=== PATIENT | male | born 1955 | race Caucasian/White ===

== ENCOUNTER 2017-11-10 00:23 | Inpatient (IN) ==
--- NOTE | 2017-11-10 03:03 | Event Note ---
Date of Encounter: 11/10/17 Time of Encounter: 02:52 Patient was seen and examined. I agree with the H&P as written by the Resident Physician. Briefly, patient is 62 yo m with history of liver cirrhosis diagnosed 3 years ago, COPD, Afib, DVT on coumadin, hypothyroidism who is transferred from [facility] for ascites, UTI, vague/generalized abdominal pain. Pain is intermittent for last week or so. Associated nausea. He has had about 20-25 Ibs weight gain the last month or so. He has had decreased urine output despite taking extra lasix. The patient drinks alcohol 3-4 times a week but used to drink heavily in the past. The patient is hemodynamically stable with Tmax of 99.1. Work up there showed Hgb 9.2 with previous of 11.8 but no bleeding reported. Bilirubin slightly elevated. Normal rest of LFTs. K 3.4, Na 134, creatinine .56, BUN 11, Lactic acid 1.4. UA indicative of UTI. Given Rocephin, Dilaudid, Toradol prior to transfer here. CT abd/pelvis done showed moderate ascites and hepatic cirrhosis with evidence of portal venous hypertension and small paraesophageal varices. A suspected cyst on US. Never had an EGD but had a colonoscopy many years ago which he says was normal as far as he knows and was told to follow up in 10 years. Of note, the patient is on Lovenox as he is planned carpal tunnel surgery on November 12. He has been told to stop coumadin for 4 days now and go on Lovenox. A/O x3, NAD RRR. S1, S2, No m/r/g Diminshed breath sounds Abdomen distended. flank dullness. Caput medusae. +BS. NT 2+ LE edema. 2+ DP Nonfocal Admit to hospitalist for abd pain/ascite/UTI Ceftriaxone f/u on urine coutures paracentesis in IR. Send for fluid analysis c/s orthopedics since patient is scheduled for carpal tunnel surgery c/s GI for liver cirrrhosis/esophageal varices and optimizing cirrhosis meds Start IV lasix 40 mg BID May need laisx/aldactone at d/c Check TTE CXR Monitor H/H Replace K+ c/w therapeutic Lovenox Resume home meds
[2017-11-10] MEDS ORDERED: Naloxone 0.4 MG/ML INJ IVP PRN (03:51)
[2017-11-10] MEDS ORDERED: Acetaminophen 325 MG TABLET PO PRN (03:51)
[2017-11-10] MEDS ORDERED: Potassium Chloride Elixir 20 MEQ/15 ML UDC PO ONE (04:06)
--- NOTE | 2017-11-10 04:10 | Internal Med History&Physical ---
Date of Encounter: 11/10/17 Time of Encounter: 04:00 Internal Medicine - H&P: HPI Chief complaint: Abdominal pain Admitted From: Hospital to Hospital Transfer Plans for Post Hospital Care: Home History of present illness: Mr. Lomeli is a 62 year old male history of A. fib, COPD, DVT, former smoker, alcohol use, thrombocytopenia presented to [facility] with complaints of abdominal pain for 5-6 days. The patient states that the pain started as achy right upper quadrant pain that eventually radiated towards to mid epigastric and became sharp in nature. He states that movement and coughing worsens the pain. Abdominal pain ranges from 8-[address] abdomen confirmed that patient had ascites and hepatic cirrhosis, and he was send to [facility] for paracentesis and further evaluation. In addition, the patient was diagnosed with UTI and started with ceftriaxone 1000 mg IVP with cultures pending. Dilaudid, Toradol were given for pain. Patient reports that he quit smoking 11 years ago, drinks 3-4 beers/week, denies illicit drug use. He confirms that he is compliant with his lasix and all other medications. admits to nausea but denies fevers, chills, headaches, vision changes, CP, SOB, vomiting, dysuria, hematuria. Does admit to 2-3 episodes of loose stool. In addition, patient has carpal tunnel hand surgery on November 12 and has discontinued his Coumadin for 4 days, replaced with Lovenox injections BID. Abdominal CT: Hepatic cirrhosis with evidence of portal venous hypertension, including small paraesophageal varices. Moderate ascites. likely left kidney cyst. Labs: CBC red blood cells 3.23, hemoglobin 9.2, hematocrit 29.7, MCHC 31 PT 14.6 Chem-7 sodium 134, potassium 3.4, creatinine 0.56, glucose 122 Calculated osmolality 279 Total bilirubin 1.6, direct bilirubin 0.4 UA: Urine protein 30 mg/dL, urine nitrite positive, urine bilirubin small, urine bacteria moderate per hpf, many hyaline casts, moderate urine mucus. Pending urine culture Past Med Surg Social Fam HX - Past Medical History Medical history: atrial fibrillation, COPD, DVT, hypertension, other Psychiatric history: no psych history - Past Surgical History Surgical History: herniorrhaphy, orthopedic, other, other - Social History Smoking Status: Former smoker Smokeless Tobacco Status: Yes Alcohol use: occasionally Drug use: none - Family History Father Hx Family Endocrine Disorder: Yes Internal Medicine - H&P: Meds Allopurinol [Zyloprim 300 MG] 300 mg PO DAILY tablet 10/24/16 [Rx] Digoxin [Lanoxin] 0.25 mg PO DAILY tablet 10/24/16 [Rx] Levothyroxine [Synthroid] 50 mcg PO 0630 tablet 10/24/16 [Rx] Metoprolol [Lopressor] 25 mg PO BID tablet 10/24/16 [Rx] Diltiazem [Cardizem] 60 mg PO BID 11/09/17 [History] Furosemide [Lasix] 80 mg PO DAILY 11/09/17 [History] Potassium Chloride [Klor-Con 10] 20 meq PO DAILY 11/09/17 [History] Pregabalin [Lyrica] 200 mg PO TID 11/09/17 [History] Warfarin [Coumadin] 4 mg PO DAILY 11/09/17 [History] Ferric Sulfate 1 gm MC 11/10/17 [History] 3 Allergy/AdvReac Type Severity Reaction Status Date / Time tramadol AdvReac Itching Verified 10/21/16 23:53 All Systems PM: A 10-system review of systems was performed and is negative for pertinent findings except as documented above in the HPI. - Constitutional Constitutional: as per HPI, no chills, no fever(s), no night sweats - EENT Eyes: no change in vision, no discharge, no pain, no photophobia Ears: no ear discharge, no ear pain, no tinnitus Nose, mouth and throat: no dysphagia, no nasal discharge, no neck pain, no sore throat - Cardiovascular Cardiovascular ROS IM: no chest pain, no diaphoresis, no dyspnea, no lightheadedness, no palpitations, no syncope - Respiratory Respiratory: no cough, no dyspnea, no wheezing, no excessive phlegm production - Gastrointestinal Gastrointestinal: abdominal pain, no diarrhea, no hematemesis, no hematochezia, no melena, no nausea, no vomiting - Genitourinary Genitourinary ROS male: no flank pain, no urinary frequency, no urinary hesitancy - Musculoskeletal Musculoskeletal ROS IM: no numbness, no tingling - Integumentary Integumentary IM: no rash, no unusual bruising - Neurological Neurological ROS: no confusion, no convulsions, no focal weakness, no numbness, no tingling, no tremor(s) - Hematologic/Lymphatic Hematologic/Lymphatic: no easy bruising - Constitutional Vitals: Temp Pulse Resp BP Pulse Ox 97.6 F 92 15 119/72 98 11/10/17 02:00 11/10/17 02:00 11/10/17 02:00 11/10/17 02:00 11/10/17 02:00 - Head Head exam: Present: atraumatic, normocephalic - Eye Eye exam: Present: PERRL, conjuntiva pink, sclera anicteric Pupils: Present: PERRL - Neck Neck exam general surgery: Present: supple, trachea midline. Absent: lymphadenopathy - Respiratory Respiratory exam: Present: CTAB. Absent: accessory muscle use, rales, rhonchi, wheezes - Cardiovascular Cardiovascular exam: Present: RRR, +S1, +S2. Absent: diastolic murmur, gallop, rubs, systolic murmur - GI/Abdominal GI/Abdominal exam: Present: hypoactive bowel sounds, no peritoneal signs. Absent: distended, tenderness Additional comments: ascites noted. + fluid wave. - Extremities Exam Extremities exam: Present: pedal edema, warm, radial pulses palpable and symmetrical. Absent: calf tenderness, cyanotic - Neurological Exam Neurological exam: Present: CN II-XII intact, oriented X3, no focal deficits. Absent: pronater drift, facial droop, speech deficit - Skin Skin exam: Present: dry, intact Internal Med - H&P Results - Labs CBC & Chem 7: 11/10/17 04:08 11/10/17 04:05 - Assessment and plan (1) Ascites Current Visit: Yes Status: Acute Assessment and plan: Admitted patient for inpatient. Paracentesis with cell count with differential tomorrow, with peritoneal fluid analysis and cytology. Keep patient on nothing by mouth. Start Lasix 40 mg BID, consider spinorolactone. Consult GI for possible endoscopy for esophageal varices evaluation. Continue oxycodone for NPO pain management as needed. Echo pending. Qualifiers: Qualified Code(s): R18.8 - Other ascites (2) Cirrhosis of liver Current Visit: Yes Status: Acute Assessment and plan: Patient reports possible history of liver cirrhosis. GI consult for evaluation and recommendations. Treat per above. Qualifiers: Hepatic cirrhosis type: unspecified hepatic cirrhosis Ascites presence: with ascites Qualified Code(s): K74.60 - Unspecified cirrhosis of liver; R18.8 - Other ascites (3) UTI (urinary tract infection) Current Visit: No Status: Acute Assessment and plan: UA + Continue with Rocephin, UCx pending Qualifiers: Urinary tract infection type: acute cystitis Hematuria presence: without hematuria Qualified Code(s): N30.00 - Acute cystitis without hematuria (4) Wrist pain Current Visit: No Status: Chronic Assessment and plan: Patient has carpal tunnel and surgery scheduled for November 12. Consult orthopedics surgeon. Continue to hold warfarin, continue Lovenox 150 mg SQ twice a day Qualifiers: Laterality: right Qualified Code(s): M25.531 - Pain in right wrist (5) Atrial fibrillation Current Visit: No Status: Chronic Assessment and plan: Continue home medications for history of A. fib. Currently stable. Qualifiers: Atrial fibrillation type: chronic Qualified Code(s): I48.2 - Chronic atrial fibrillation (6) Hypothyroidism Current Visit: No Status: Acute Assessment and plan: Continue home medications Synthroid Qualifiers: Hypothyroidism type: unspecified Qualified Code(s): E03.9 - Hypothyroidism , unspecified (7) DM type 2 (diabetes mellitus, type 2) Current Visit: No Status: Chronic Assessment and plan: Low dose SSI Qualifiers: Diabetes mellitus intermediate designer insulin use: without half-way use Diabetes mellitus complication status: with skin complications Diabetes mellitus complication detail: with foot ulcer Qualified Code(s): E11.621 - Type 2 diabetes mellitus with foot ulcer; L97.509 - Non-pressure chronic ulcer of other part of unspecified foot with unspecified severity (8) DVT prophylaxis Current Visit: Yes Status: Acute Assessment and plan: Patient on Lovenox (9) Anemia Current Visit: Yes Status: Acute Assessment and plan: Pending iron profile Qualifiers: Qualified Code(s): D64.9 - Anemia, unspecified - Time Spent With Patient Total time spent is greater than 50% in coordination of care (as documented) at patient's floor/unit and/or counseling patient: Greater than 35 minutes
[2017-11-10 04:29] LABS: Basophils % 0.5 %; Eosinophils # 0.1 K/mcL (0.0-0.6); Eosinophils % 3.4 %; Hematocrit 28.2 % (37.5-50.1); Hemoglobin 8.8 g/dL (12.9-16.9); Immature Granulocytes % 0.3 % (0-4); Lymphocytes # 0.6 K/mcL (0.6-4.6); Lymphocytes % 14.7 %; Mean Corpuscular HGB Conc 31.2 g/dL (31.6-35.5); Mean Corpuscular Hemoglobin 29.1 pg (28.0-33.3); Mean Corpuscular Volume 93.4 fL (83.0-100.0); Monocytes # 0.7 K/mcL (0.0-1.3); Monocytes % 17.1 %; Neutrophils # 2.4 K/mcL (1.6-8.9); Platelet Count 153 K/mcL (140-400); Red Blood Count 3.02 M/mcL (4.19-5.50); Red Cell Distribution Width 17.2 % (11.5-14.5)
[2017-11-10 04:51] LABS: Alanine Aminotransferase 15 Units/L (7-52); Albumin 3.6 g/dL (3.5-5.7); Albumin/Globulin Ratio 1.2 (1.1-2.2); Alkaline Phosphatase 103 Units/L (34-104); Aspartate Amino Transferase 36 Units/L (13-39); BUN/Creatinine Ratio 22 (6-26); Bilirubin,Total 1.6 mg/dL (0.3-1.0); Blood Urea Nitrogen 12 mg/dL (8-23); Calcium 8.6 mg/dL (8.6-10.3); Carbon Dioxide 27 mEq/L (23-29); Chloride 100 mEq/L (98-107); Glucose 131 mg/dL (70-105); Lactate Dehydrogenase 146 Units/L (140-271); Osmolality,Calculated 280 (280-300); Potassium 3.3 mEq/L (3.5-5.1); Sodium 134 mEq/L (136-145); Total Protein 6.6 g/dL (6.4-8.9); eGFR For African Americans > 60 (> 60); eGFR For Non-African Americans > 60 (> 60)
[2017-11-10] MEDS ORDERED: OXYCODONE Oral CONC 10 MG/0.5 ML ORAL.SYG SL PRN (05:02)
[2017-11-10] MEDS: *HR* Enoxaparin 150 MG/ML SYRINGE SQ SCH ×2 (05:08→18:04)
[2017-11-10] MEDS ORDERED: D5% in Water 1,000 ML IVC PRN (05:23)
[2017-11-10] MEDS ORDERED: *HR* Dextrose 50 % in Water (Syg) 50 ML SYRINGE IVP PRN (05:23)
[2017-11-10] MEDS ORDERED: Dextrose Gel 15 GM/37.5 ML TUBE PO PRN ×2 (05:23)
[2017-11-10] MEDS ORDERED: *HR* Enoxaparin 40 MG/0.4 ML SYRINGE SQ SCH (06:00)
[2017-11-10 06:55] LABS: % Iron Saturation 6 % (20-55); Iron 14 mcg/dL (65-175); Transferrin 167 mg/dL (203-362)
[2017-11-10] MEDS: Insulin LISPRO 300 UNITS/3 ML VIAL SQ SCH ×4 (07:39→20:47)
[2017-11-10] MEDS: OXYCODONE Oral CONC 10 MG/0.5 ML ORAL.SYG SL PRN ×3 (08:02→22:22)
--- NOTE | 2017-11-10 08:28 | IR Procedure Note ---
Date of procedure: 11/10/17 Consent Obtained: Verbal consent, Written consent Timeout: Correct patient and procedure verified, Correct site verified, Time out performed, Skin prep completed Local anesthetic: Lidocaine 1% Indications: Ascites Procedure Performed: Paracentesis Was there an insurance administrative assistant present: No Site/Technique: Ultrasound guided paracentesis Results/Findings: Moderate ascites Estimated blood loss (cc): 2 Complications: None; Tolerated procedure well Post Procedure Treatment Plan: Continue inpatient care Specimen: Serous ascites
[2017-11-10] MEDS: Pregabalin 50 MG CAPSULE PO SCH ×3 (08:51→20:48)
[2017-11-10] MEDS: Furosemide 40 MG/4 ML VIAL IVP SCH ×3 (08:51→20:48)
[2017-11-10] MEDS: cefTRIAXone 1,000 MG in Water for inj. (sterile) 20 ML 10 ML IVP SCH (08:51)
[2017-11-10] MEDS: *HR* Digoxin 0.25 MG TABLET PO SCH (08:52)
[2017-11-10 09:03] LABS: Hepatitis B Surface Antigen Nonreactive (Nonreactive)
--- NOTE | 2017-11-10 10:59 | Gastroenterology Consult Note ---
<FontaineLorenzo kimbrough Lynne - Last Filed: 11/10/17 10:56> Date of Encounter: 11/10/17 Time of Encounter: 10:05 - Assessment and plan (1) Anemia Current Visit: No Status: Acute Assessment and plan: Hgb 8.8 with iron 14. Continue to monitor CBC and transfuse PRBC as needed. Plan for EGD today to r/o esophagitis, gastritis, duodenitis, PUD, MW tear, or AVM. Qualifiers: Anemia type: unspecified type Qualified Code(s): D64.9 - Anemia, unspecified (2) Cirrhosis of liver Current Visit: Yes Status: Acute Assessment and plan: MELD-Na 15, Child-Dunn class B, DF 20.5. CT A/P shows hepatic cirrhosis with evidence of portal venous hypertension, including small paraesophageal varices, and moderate ascites. Plan for EGD today to r/o esophagitis, gastritis, duodenitis, PUD, MW tear, or AVM. Continue Lasix and Aldactone. Check AFP. 1. Total abstinence from alcohol including social drinking. 2. No smoking 3. Gradual loss of weight 4. Drink at least 3 cups of coffee due to its antioxidant effects in the liver, it reduces risk of HCC and advance fibrosis 5. If needed, use less than 2 g/day of Tylenol (in divided doses). 6. Vaccination for Hep A, B, Pneumococcus if not already received and yearly influenza vaccination by PCP 7. Avoid NSAIDS as can cause kidney damage 8. Avoid benzodiazepines and other sedatives such as anti-histamines, narcotics etc. as can cause encephalopathy or confusion 9. Take a late carbohydrate meal supplement as it reduces glucose production from protein breakdown and thus improves nutrition. 10. In cirrhosis, statins are safe to use and also improve portal hypertension and decrease risk of HCC. Qualifiers: Hepatic cirrhosis type: unspecified hepatic cirrhosis Ascites presence: with ascites Qualified Code(s): K74.60 - Unspecified cirrhosis of liver (3) Ascites Current Visit: Yes Status: Acute Assessment and plan: Paracentesis completed today. Continue Lasix and aldactone. Qualifiers: Ascites type: other type Qualified Code(s): R18.8 - Other ascites - Time Spent With Patient Total time spent is greater than 50% in coordination of care (as documented) at patient's floor/unit and/or counseling patient: GI History of Present Illness - Data of Consult Patient: new to practice Consult date: 11/10/17 Requesting Physician: Hitesh Araiza MD - Consult Narrative Reason for consult: Cirrhosis History of present illness: Mr. Lomeli is a 62 year old male with PMHx of A fib, COPD, DVT, HTN, alcohol use, who presented to [facility] with c/o abdominal pain for 5-6 days. Pt reports history of cirrhosis diagnosed 3 years ago. He has never had EGD. The patient states that the pain started as achy right upper quadrant pain that eventually radiated towards to mid epigastric and became sharp in nature. He states that movement and coughing worsens the pain. Abdominal pain ranges from 8-[address] abdomen confirmed that patient had ascites and hepatic cirrhosis, and he was send to [facility] for paracentesis and further evaluation. Pt admits to drinking 3-4 beers per week and denies any illicit drug use. Paracentesis is planned for today. Procedures: None NSAIDs: None Anticoagulation: Coumadin Past Med Surg Social Fam HX - Past Medical History Medical history: atrial fibrillation, COPD, DVT, hypertension, other Psychiatric history: no psych history - Past Surgical History Surgical History: herniorrhaphy, orthopedic, other, other - Social History Smoking Status: Former smoker Smokeless Tobacco Status: Yes Alcohol use: occasionally Drug use: none - Family History Father Hx Family Endocrine Disorder: Yes - Gastrointestinal Gastrointestinal: Present: as per HPI - Constitutional Constitutional: as per HPI - EENT Eyes: as per HPI Ears: Present: as per HPI Nose, mouth and throat: Present: as per HPI - Cardiovascular Cardiovascular ROS: Present: as per HPI - Respiratory Respiratory IM: Present: as per HPI - Genitourinary Genitourinary: Absent: change in color, Urinary frequency - Neurological ROS Neurological GI: Present: as per HPI - Hematologic/Lymphatic Hematologic/Lymphatic pediatric: Present: as per HPI - Musculoskeletal Musculoskeletal ROS GI: Present: as per HPI - Integumentary Integumentary GI: Present: as per HPI - Psychiatric ROS Psychiatric GI: Present: as per HPI - Endocrine Endocrine IM: Present: as per HPI - Constitutional Vitals: Temp Pulse Resp BP Pulse Ox 98.7 F 93 16 113/67 95 11/10/17 07:20 11/10/17 07:20 11/10/17 07:20 11/10/17 07:20 11/10/17 08:09 General appearance: Present: cooperative, A&O X 3, no acute distress, answers questions appropriately - Head Head exam: Present: atraumatic, normocephalic - Eye Eye exam: Present: normal appearance, sclera anicteric - ENT ENT exam: Present: mucous membranes dry - Neck Neck exam general surgery: Present: normal inspection, trachea midline - Respiratory Respiratory exam: Present: CTAB. Absent: rales, rhonchi - Cardiovascular Cardiovascular exam: Present: RRR, +S1, +S2 - GI/Abdominal GI/Abdominal exam: Present: soft, no peritoneal signs. Absent: distended, firm , guarding, tenderness - Expanded GI/Abdominal Exam GI/Abdominal exam expanded: Present: ascites - Rectal Rectal exam: Present: deferred - Extremities Exam Extremities exam: Present: warm - Neurological Exam Neurological exam: Present: no focal deficits - Psychiatric Psychiatric exam: Present: normal affect, normal mood - Skin Skin exam: Present: dry, intact, normal color, warm Results - Labs CBC & Chem 7: 11/10/17 04:08 11/10/17 04:05 Labs: Last Result Calcium 8.6 mg/dL (8.6-10.3) 11/10/17 04:05 Iron 14 mcg/dL (65-175) L 11/10/17 06:16 % Saturation 6 % (20-55) L 11/10/17 06:16 Transferrin 167 mg/dL (203-362) L 11/10/17 06:16 Entire Visit Hgb 8.8 g/dL (12.9-16.9) L 11/10/17 04:08 Hct 28.2 % (37.5-50.1) L 11/10/17 04:08 Total Bilirubin 1.6 mg/dL (0.3-1.0) H 11/10/17 04:05 AST 36 Units/L (13-39) 11/10/17 04:05 ALT 15 Units/L (7-52) 11/10/17 04:05 - Impressions Impressions Paracentesis Ultrasound 11/10/17 03:07 IMPRESSION: Successful ultrasound guided paracentesis. D/ / Adolph Meraz MD / Adolph Meraz MD Interpreting Provider: Adolph Meraz MD Chest X-Ray 11/10/17 03:26 IMPRESSION: No acute cardiopulmonary abnormality. D/ / Lorenzo Wise MD / Lorenzo Wise MD Interpreting Provider: Lorenzo Wise MD Consult Discharge Plan - Plan Referrals: NONE,PCP [Primary Care Provider] - (please call residency Clinic upon discharge...) <Tay Landa - Last Filed: 11/13/17 03:52> Date of Encounter: 11/10/17 - Time Spent With Patient Total time spent is greater than 50% in coordination of care (as documented) at patient's floor/unit and/or counseling patient: GI History of Present Illness - Data of Consult Requesting Physician: Hitesh Araiza MD - Consult Narrative History of present illness: Mr. Lomeli is a 62 year old male - Constitutional Vitals: Temp Pulse Resp BP Pulse Ox 97.6 F 80 19 98/62 94 11/13/17 00:33 11/13/17 00:33 11/13/17 00:33 11/13/17 00:33 11/13/17 00:33 Results - Labs CBC & Chem 7: 11/12/17 04:05 11/12/17 04:05 Labs: Last Result Calcium 8.3 mg/dL (8.6-10.3) L 11/12/17 04:05 Iron 14 mcg/dL (65-175) L 11/10/17 06:16 % Saturation 6 % (20-55) L 11/10/17 06:16 Transferrin 167 mg/dL (203-362) L 11/10/17 06:16 Troponin I 0.04 ng/mL (< 0.04) H* 11/11/17 20:04 Peritoneal Appearance CLEAR (Clear) 11/10/17 08:15 Peritoneal Volume 50.0 mL 11/10/17 08:15 Peritoneal RBC < 0.002 M/mcL (0.000-0.002) 11/10/17 08:15 Periton Tot Nuc Cells 96 TNC/mcL (0-300) 11/10/17 08:15 Periton Band Neuts Test Not Performed 11/10/17 08:15 Periton Lymphocytes % 52.0 % 11/10/17 08:15 Periton Monocytes % 6.0 % 11/10/17 08:15 Periton Other Cells % 14.0 % 11/10/17 08:15 Peritoneal Tot Protein < 3.0 g/dL (No Ref Range) 11/10/17 08:15 Peritoneal Albumin < 1.5 g/dL (No Ref Range) 11/10/17 08:15 Peritoneal LDH 42 Units/L (No Ref Range) 11/10/17 08:15 Entire Visit Hgb 8.5 g/dL (12.9-16.9) L 11/12/17 04:05 Hct 27.6 % (37.5-50.1) L 11/12/17 04:05 Total Bilirubin 1.6 mg/dL (0.3-1.0) H 11/10/17 04:05 AST 36 Units/L (13-39) 11/10/17 04:05 ALT 15 Units/L (7-52) 11/10/17 04:05 - Impressions Impressions Echocardiogram 11/11/17 04:25 Impressions: LVEF 60-65%. Mild concentric left ventricular hypertrophy. Indeterminate diastolic function. Definity echo contrast was used. Normal right ventricular structure and function. Mild mitral regurgitation. Mild tricuspid regurgitation. Moderate-severe aortic stenosis. Mild pulmonary hypertension. Left Ventricular Wall Motion: Rest Echo Findings All wall segments showed normal motion. Findings: Study Quality * Technically adequate exam. ECG Findings * Normal sinus rhythm. Left Ventricle * LVEF 60-65%. * Mild concentric left ventricular hypertrophy. * Indeterminate diastolic function. * Definity echo contrast was used. Right Ventricle * Normal right ventricular structure and function. Left Atrium * Severely dilated left atrium. Right Atrium * Moderately dilated right atrium. Mitral Valve * Normal mitral valve structure. * No mitral stenosis. * Mild mitral annular calcification * Mild mitral regurgitation. Tricuspid Valve * Tricuspid valve not well visualized. * Mild tricuspid regurgitation. * Estimated RA pressure is 8 mmHg. * Estimated RVSP is 44 mmHg. * Mild pulmonary hypertension. Aortic Valve * Aortic valve not well visualized. * Moderate-severe aortic stenosis. PV 3.2m/s, MG 23 mmHg, DI 0.3, GISSELL 0.9cm2 * No aortic regurgitation. Pulmonic Valve * Pulmonic valve is not well visualized. * No pulmonic stenosis. * No pulmonic regurgitation. Pulmonary Artery * Pulmonary artery not well visualized. Aorta * Normally sized aortic root. Pericardium * There is no pericardial effusion present. Interatrial Septum * No evidence of PFO by color Doppler. IVC * The IVC is not dilated. * < 50% respiratory change. - Attending Attestation shows cirrhosis with ascites and portal hypertension with severe anemia with hemoglobin 8.8 g percent would plan EGD today and a colonoscopy the following day and to make further recommendations history: He needs a workup for his cirrhosis procedure agree with checking an alpha-fetoprotein level and we will make further recommendations as as appropriate I have personally performed a face to face evaluation on this patient. I have reviewed and agree with the care plan. History and Exam by me shows:
--- NOTE | 2017-11-10 12:10 | Internal Med Progress Note ---
Date of Encounter: 11/10/17 Time of Encounter: 09:40 - Assessment and plan (1) Wrist pain Current Visit: Yes Status: Chronic Assessment and plan: Patient has carpal tunnel and surgery scheduled for November 12. Orthopedics has been consulted non-emergently ,will follow recommendations Continue to hold warfarin, continue Lovenox 150 mg SQ twice a day Qualifiers: Laterality: right Qualified Code(s): M25.531 - Pain in right wrist (2) UTI (urinary tract infection) Current Visit: Yes Status: Suspected Assessment and plan: Suspected, UA + Continue with Rocephin, UCx pending, will follow Qualifiers: Urinary tract infection type: acute cystitis Hematuria presence: without hematuria Qualified Code(s): N30.00 - Acute cystitis without hematuria (3) Atrial fibrillation Current Visit: Yes Status: Chronic Assessment and plan: Continue home medications for history of A. fib. Currently stable. Qualifiers: Atrial fibrillation type: chronic Qualified Code(s): I48.2 - Chronic atrial fibrillation (4) Hypothyroidism Current Visit: Yes Status: Chronic Assessment and plan: Continue home medications Synthroid Qualifiers: Hypothyroidism type: unspecified Qualified Code(s): E03.9 - Hypothyroidism , unspecified (5) DM type 2 (diabetes mellitus, type 2) Current Visit: Yes Status: Chronic Assessment and plan: Low dose SSI Qualifiers: Diabetes mellitus fci insulin use: without fci use Diabetes mellitus complication status: with skin complications Diabetes mellitus complication detail: with foot ulcer Qualified Code(s): E11.621 - Type 2 diabetes mellitus with foot ulcer; L97.509 - Non-pressure chronic ulcer of other part of unspecified foot with unspecified severity (6) Cirrhosis of liver Current Visit: Yes Status: Acute Assessment and plan: Alcoholic decompensated liver cirrhosis GI eval pending at time of review s/p 3L ascitic fluid drainage,work up ordered, pending Continue lasix and spironolactone GI fo possible EGD Keep NPO till GI eval Qualifiers: Hepatic cirrhosis type: alcoholic cirrhosis Ascites presence: with ascites Qualified Code(s): K70.31 - Alcoholic cirrhosis of liver with ascites (7) DVT prophylaxis Current Visit: Yes Status: Acute Assessment and plan: Patient on Lovenox (8) Anemia Current Visit: Yes Status: Chronic Assessment and plan: Chronic,stable,follow anemia workup Qualifiers: Anemia type: unspecified type Qualified Code(s): D64.9 - Anemia, unspecified (9) Ascites Current Visit: Yes Status: Acute Assessment and plan: s/p paracentesis. Follow fluid workup. Continue Rocephin Lasix and spironolactone. Qualifiers: Ascites type: due to alcoholic cirrhosis Qualified Code(s): K70.31 - Alcoholic cirrhosis of liver with ascites - Time Spent With Patient Total time spent is greater than 50% in coordination of care (as documented) at patient's floor/unit and/or counseling patient: - Subjective Interval history: Seen and examined at the bedside. 62-year-old male with alcohol abuse, admitted for decompensated liver cirrhosis with ascites, suspect paralysis. He reports his last drink in episode was 10 days ago. He denies new complaints. He is status post paracentesis, workup is pending. - Constitutional Vitals: Temp Pulse Resp BP Pulse Ox 98.2 F 69 15 108/68 96 11/10/17 11:15 11/10/17 11:15 11/10/17 11:15 11/10/17 11:15 11/10/17 11:15 General appearance: Present: A&O X 3, morbidly obese, pleasant, no acute distress - Head Head exam: Present: atraumatic, normocephalic - Eye Eye exam: Present: PERRL, conjuntiva pink, sclera anicteric Pupils: Present: PERRL - Neck Neck exam general surgery: Present: supple, trachea midline. Absent: lymphadenopathy - Respiratory Respiratory exam: Present: CTAB. Absent: accessory muscle use, rales, rhonchi, wheezes - GI/Abdominal GI/Abdominal exam: Present: distended, normal bowel sounds, soft, no peritoneal signs. Absent: splenomegaly, tenderness - Extremities Exam Extremities exam: Present: pedal edema (2+pedal edema with chronic venous stasis changes), warm, radial pulses palpable and symmetrical. Absent: calf tenderness, cyanotic - Neurological Exam Neurological exam: Present: alert, CN II-XII intact, oriented X3, no focal deficits. Absent: pronater drift, facial droop, speech deficit - Skin Skin exam: Present: dry, intact Internal Medicine: Result - Labs CBC & Chem 7: 11/10/17 04:08 05/29/18 04:05 Labs: Short CBC 11/10/17 Range/Units 04:08 WBC 3.8 L (4.3-11.1) K/mcL Hgb 8.8 L (12.9-16.9) g/dL Hct 28.2 L (37.5-50.1) % Plt Count 153 (140-400) K/mcL Neutrophils # 2.4 (1.6-8.9) K/mcL BMP 11/10/17 04:05 Sodium 134 L Potassium 3.3 L Chloride 100 Carbon Dioxide 27 BUN 12 Creatinine 0.54 L Glucose 131 H Calcium 8.6 Liver Function 11/10/17 Range/Units 04:05 Total Bilirubin 1.6 H (0.3-1.0) mg/dL AST 36 (13-39) Units/L ALT 15 (7-52) Units/L Alkaline Phosphatase 103 (34-104) Units/L Albumin 3.6 (3.5-5.7) g/dL - Impressions Impressions Paracentesis Ultrasound 11/10/17 03:07 IMPRESSION: Successful ultrasound guided paracentesis. D/ / Adolph Meraz MD / Adolph Meraz MD Interpreting Provider: Adolph Meraz MD Chest X-Ray 11/10/17 03:26 IMPRESSION: No acute cardiopulmonary abnormality. D/ / Lorenzo Wise MD / Lorenzo Wise MD Interpreting Provider: Lorenzo Wise MD Consult Discharge Plan - Plan Referrals: NONE,PCP [Primary Care Provider] -
[2017-11-10] MEDS ORDERED: *HR* Propofol 200 MG/20 ML VIAL IVP ONE (12:57)
[2017-11-10] MEDS ORDERED: Lidocaine -MPF 2% 2 ML VIAL ONE (12:57)
--- NOTE | 2017-11-10 13:45 | Anesthesia Evaluation PreOp ---
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 Any Significant HX Other Medical History: Hepatic (alcoholic cirrhosis with ascites and portal hypertension), Other (hx DVT) Anesthesia History: No Prior Anesthetic Complications, Past Anesthesia (hernia, ortho) Alcohol Use: occasionally Drug use: none Medications and Allergies Allopurinol [Zyloprim 300 MG] 300 mg PO DAILY tablet 10/24/16 [Rx] Digoxin [Lanoxin] 0.25 mg PO DAILY tablet 10/24/16 [Rx] Levothyroxine [Synthroid] 50 mcg PO 0630 tablet 10/24/16 [Rx] Metoprolol [Lopressor] 25 mg PO BID tablet 10/24/16 [Rx] Diltiazem [Cardizem] 30 mg PO BID 11/09/17 [History] Furosemide [Lasix] 80 mg PO DAILY 11/09/17 [History] Potassium Chloride [Klor-Con 10] 20 meq PO DAILY 11/09/17 [History] Pregabalin [Lyrica] 200 mg PO TID 11/09/17 [History] Warfarin [Coumadin] 4 mg PO DAILY 11/09/17 [History] Enoxaparin [Lovenox] 150 mg SQ Q12HR 11/10/17 [History] Ferrous Sulfate [Iron] 325 mg PO DAILY 11/10/17 [History] Naproxen [Naprosyn] 500 mg PO BID PRN 11/10/17 [History] 3 Allergy/AdvReac Type Severity Reaction Status Date / Time tramadol AdvReac Itching Verified 10/21/16 23:53 - Meds/Allergy Pre-op Review Medications Reviewed: Yes Allergies Reviewed: Yes Beta Blockers on Current Med List: Yes If Beta Blockers taken, Date/Time (Last Dose taken): today@ 7248 Anesthesia Results - Labs 11/10/17 04:08 11/10/17 04:05 Anesthesia Exam Selected Entries 11/10/17 11:15 Temperature 98.2 F Pulse Rate 69 Respiratory Rate 15 Blood Pressure 108/68 O2 Sat by Pulse Oximetry 96 Oxygen Delivery Method Room Air Weight: 155kg BMI 41 - HEENT Pupil (Motor): EOMI Mallampati: III Teeth: Edentulous Oral Opening: Greater than 3 - IN STORE BANKER LOC: Oriented IN STORE BANKER Motor: Normal RUE, Normal LUE, Normal RLE, Normal LLE, Normal Face IN STORE B[employer]ER Sensory: Normal: RUE, LUE, RLE, LLE, Face - Cardiac Rhythm: Irregular Murmur: None - Pulmonary Breath Sounds: bilateral Clear Respiratory Effort: Symmetrical Anesthesia Assess/Plan ASA Score: 3 Modified [place] Scale for Level of Consciousness: Cooperative, oriented, and tranquil Anesthetic Plan: MAC Monitoring Plan: Standard Monitors Recovery Plan: Other (agrees to MAC)
[2017-11-10 16:05] LABS: LDH,Peritoneal Fluid 42 Units/L (No Ref Range); Total Protein,Peritoneal Fluid < 3.0 g/dL (No Ref Range)
[2017-11-10 16:23] LABS: RBC,Peritoneal Fluid < 0.002 M/mcL
[2017-11-10 16:24] LABS: Appearance of Peritoneal Fl CLEAR (Clear)
[2017-11-10] MEDS ORDERED: SODIUM CHLORIDE/NAHCO3/KCL/PEG 4,000 ML SOLN.RECON PO ONE (17:00)
--- NOTE | 2017-11-10 17:02 | Orthopedic Consult Note ---
Date of Encounter: 11/10/17 Time of Encounter: 13:00 Assessment and Plan (1) Carpal tunnel syndrome on both sides Current Visit: Yes Status: Acute Patient scheduled for left revision open carpal tunnel release, left elbow ulnar nerve decompression, right carpal tunnel steroid injection on 11/12/17. This is not a medically urgent procedure however patient wishes to proceed with the surgery while he is admitted. Discussed with Dr. Araiza who expressed this should not be an issue and would be ok to proceed as scheduled pending echo results. He will need to be NPO after midnight tomorrow. Coumadin has been held and he is currently on lovenox bridge. (2) Cubital tunnel syndrome on left Current Visit: Yes Status: Acute Scheduled for surgery as above History of Present Illness Chief complaint: bilateral carpal tunnel HPI: Mr. Lomeli is a 62 year old male who was admitted for decompensated liver cirrhosis with ascites. He is scheduled for LUE surgery on 11/12/[address] Ceballos. He states that he continues to have the numbness and pain to bilateral upper extremities, symptoms have persisted for > 1 year with no change since last visit in office. Continues to have numbness and tingling to fingers. Patient wants to proceed with surgery while he is here. He is right hand dominant. Past Med Surg Social Fam HX - Past Medical History Medical history: atrial fibrillation, COPD, DVT, hypertension, other Psychiatric history: no psych history - Past Surgical History Surgical History: herniorrhaphy, orthopedic, other, other - Social History Smoking Status: Former smoker Smokeless Tobacco Status: Yes Alcohol use: occasionally Drug use: none - Family History Father Hx Family Endocrine Disorder: Yes Medications and Allergies Allopurinol [Zyloprim 300 MG] 300 mg PO DAILY tablet 10/24/16 [Rx] Digoxin [Lanoxin] 0.25 mg PO DAILY tablet 10/24/16 [Rx] Levothyroxine [Synthroid] 50 mcg PO 0630 tablet 10/24/16 [Rx] Metoprolol [Lopressor] 25 mg PO BID tablet 10/24/16 [Rx] Diltiazem [Cardizem] 30 mg PO BID 11/09/17 [History] Furosemide [Lasix] 80 mg PO DAILY 11/09/17 [History] Potassium Chloride [Klor-Con 10] 20 meq PO DAILY 11/09/17 [History] Pregabalin [Lyrica] 200 mg PO TID 11/09/17 [History] Warfarin [Coumadin] 4 mg PO DAILY 11/09/17 [History] Enoxaparin [Lovenox] 150 mg SQ Q12HR 11/10/17 [History] Ferrous Sulfate [Iron] 325 mg PO DAILY 11/10/17 [History] Naproxen [Naprosyn] 500 mg PO BID PRN 11/10/17 [History] 3 Allergy/AdvReac Type Severity Reaction Status Date / Time tramadol AdvReac Itching Verified 10/21/16 23:53 All Systems Reviewed: The remainder of the systems were reviewed and are negative - Constitutional Constitutional: as per HPI - Musculoskeletal Musculoskeletal: as per HPI Physical Exam - Constitutional Vitals: Temp Pulse Resp BP Pulse Ox 98.0 F 81 16 140/78 97 11/10/17 15:23 11/10/17 15:23 11/10/17 15:23 11/10/17 15:23 11/10/17 15:23 General appearance IM: cooperative, A&O X 3, no acute distress, answers questions appropriately - Wrist & Hand bilateral Wrist pain modifiers: with activity Tenderness with palpation: carpal tunnel Results - Labs Result Diagrams: 11/10/17 04:08 11/10/17 04:05 Labs: Abnormal lab results WBC 3.8 K/mcL (4.3-11.1) L 11/10/17 04:08 RBC 3.02 M/mcL (4.19-5.50) L 11/10/17 04:08 Hgb 8.8 g/dL (12.9-16.9) L 11/10/17 04:08 Hct 28.2 % (37.5-50.1) L 11/10/17 04:08 MCHC 31.2 g/dL (31.6-35.5) L 11/10/17 04:08 RDW 17.2 % (11.5-14.5) H 11/10/17 04:08 Sodium 134 mEq/L (136-145) L 11/10/17 04:05 Potassium 3.3 mEq/L (3.5-5.1) L 11/10/17 04:05 Creatinine 0.54 mg/dL (0.70-1.30) L 11/10/17 04:05 Glucose 131 mg/dL (70-105) H 11/10/17 04:05 POC Glucose 117 mg/dL (70-99) H 11/10/17 07:25 Iron 14 mcg/dL (65-175) L 11/10/17 06:16 % Saturation 6 % (20-55) L 11/10/17 06:16 Transferrin 167 mg/dL (203-362) L 11/10/17 06:16 Total Bilirubin 1.6 mg/dL (0.3-1.0) H 11/10/17 04:05 H & H 11/10/17 Range/Units 04:08 Hgb 8.8 L (12.9-16.9) g/dL Hct 28.2 L (37.5-50.1) % All other labs normal. Consult Discharge Plan - Plan Referrals: NONE,PCP [Primary Care Provider] - - Attending Attestation Case and plan of care discussed with supervising physician who was available for all aspects of care.
[2017-11-10] MEDS ORDERED: *HR* Warfarin 4 MG TABLET PO SCH (18:00)
[2017-11-10] MEDS: Diltiazem CD (24hr) 120 MG CAPSULE PO SCH (18:04)
[2017-11-11 01:25] LABS: Hepatitis A Antibody IgM Nonreactive (Nonreactive); Hepatitis B Core IgM Nonreactive (Nonreactive); Hepatitis C Virus Antibody Nonreactive (Nonreactive)
[2017-11-11] MEDS: OXYCODONE Oral CONC 10 MG/0.5 ML ORAL.SYG SL PRN ×5 (04:18→21:53)
[2017-11-11] MEDS: *HR* Enoxaparin 150 MG/ML SYRINGE SQ SCH ×2 (04:33→18:11)
[2017-11-11 07:19] LABS: Basophils % 0.5 %; Eosinophils # 0.1 K/mcL (0.0-0.6); Eosinophils % 1.4 %; Hematocrit 27.1 % (37.5-50.1); Hemoglobin 8.4 g/dL (12.9-16.9); Immature Granulocytes % 0.4 % (0-4); Lymphocytes # 0.8 K/mcL (0.6-4.6); Lymphocytes % 13.4 %; Mean Corpuscular Hemoglobin 29.1 pg (28.0-33.3); Mean Corpuscular Volume 93.8 fL (83.0-100.0); Mean Platelet Volume 11.3 fL (9.4-12.4); Monocytes % 18.1 %; Neutrophils # 3.7 K/mcL (1.6-8.9); Nucleated Red Blood Cells 0.4 /100 WBC (0); Platelet Count 149 K/mcL (140-400); Red Blood Count 2.89 M/mcL (4.19-5.50); Red Cell Distribution Width 17.6 % (11.5-14.5); Segmented Neutrophils % 66.2 %
[2017-11-11] MEDS: Insulin LISPRO 300 UNITS/3 ML VIAL SQ SCH ×4 (07:29→21:51)
[2017-11-11 07:43] LABS: BUN/Creatinine Ratio 20 (6-26); Blood Urea Nitrogen 14 mg/dL (8-23); Calcium 8.2 mg/dL (8.6-10.3); Carbon Dioxide 23 mEq/L (23-29); Chloride 101 mEq/L (98-107); Glucose 121 mg/dL (70-105); Osmolality,Calculated 276 (280-300); Potassium 3.9 mEq/L (3.5-5.1); Sodium 132 mEq/L (136-145); eGFR For African Americans > 60 (> 60); eGFR For Non-African Americans > 60 (> 60)
[2017-11-11 08:08] LABS: Anisocytosis 1+ (Not Present); Macrocytosis Present (Not Present); Platelet Estimate Normal (Normal); Polychromasia 1+ (Not Present)
[2017-11-11] MEDS ORDERED: Perflutren Lipid Microsphere 1.3 ML in 0.9 % Sodium Chloride 8.7 ML IVP ONE ×2 (08:32→19:33)
[2017-11-11] MEDS: cefTRIAXone 1,000 MG in Water for inj. (sterile) 20 ML 10 ML IVP SCH (09:20)
[2017-11-11] MEDS: Pregabalin 50 MG CAPSULE PO SCH ×3 (12:00→21:52)
[2017-11-11] MEDS: Furosemide 40 MG/4 ML VIAL IVP SCH ×2 (12:00→18:12)
[2017-11-11] MEDS: *HR* Digoxin 0.25 MG TABLET PO SCH (12:01)
[2017-11-11] MEDS ORDERED: Lidocaine -MPF 2% 2 ML VIAL ONE (12:06)
[2017-11-11] MEDS ORDERED: Propofol 500 MG/50 ML INFUS..BTL ONE (12:17)
--- NOTE | 2017-11-11 13:49 | Internal Med Progress Note ---
Date of Encounter: 11/11/17 Time of Encounter: 13:49 - Assessment and plan (1) Wrist pain Current Visit: Yes Status: Chronic Assessment and plan: Patient has carpal tunnel and surgery scheduled for November 12. Orthopedics has been consulted non-emergently ,will follow recommendations Continue to hold warfarin, continue Lovenox 150 mg SQ twice a day For procedure as out-patient Qualifiers: Laterality: right Qualified Code(s): M25.531 - Pain in right wrist (2) UTI (urinary tract infection) Current Visit: Yes Status: Suspected Assessment and plan: Suspected, UA + Continue with Rocephin, UCx pending, will follow Qualifiers: Urinary tract infection type: acute cystitis Hematuria presence: without hematuria Qualified Code(s): N30.00 - Acute cystitis without hematuria (3) Atrial fibrillation Current Visit: Yes Status: Chronic Assessment and plan: Continue home medications for history of A. fib. Currently stable. Qualifiers: Atrial fibrillation type: chronic Qualified Code(s): I48.2 - Chronic atrial fibrillation (4) Hypothyroidism Current Visit: Yes Status: Chronic Assessment and plan: Continue home medications Synthroid Qualifiers: Hypothyroidism type: unspecified Qualified Code(s): E03.9 - Hypothyroidism , unspecified (5) DM type 2 (diabetes mellitus, type 2) Current Visit: Yes Status: Chronic Assessment and plan: Low dose SSI Qualifiers: Diabetes mellitus superintendent terminal insulin use: without residential use Diabetes mellitus complication status: with skin complications Diabetes mellitus complication detail: with foot ulcer Qualified Code(s): E11.621 - Type 2 diabetes mellitus with foot ulcer; L97.509 - Non-pressure chronic ulcer of other part of unspecified foot with unspecified severity (6) Cirrhosis of liver Current Visit: Yes Status: Chronic Assessment and plan: Alcoholic decompensated liver cirrhosis GI eval pending at time of review s/p 3L ascitic fluid drainage,work up ordered, pending Continue lasix and spironolactone EGD shoed portal gastropathy and Grade I non-bleeding varices Discontinue metoprolol and start on propanolol Renal function stable on current dose of diuretics Qualifiers: Hepatic cirrhosis type: alcoholic cirrhosis Ascites presence: with ascites Qualified Code(s): K70.31 - Alcoholic cirrhosis of liver with ascites (7) DVT prophylaxis Current Visit: Yes Status: Acute Assessment and plan: Patient on Lovenox (8) Anemia Current Visit: Yes Status: Chronic Assessment and plan: Chronic,stable,follow anemia workup Qualifiers: Anemia type: unspecified type Qualified Code(s): D64.9 - Anemia, unspecified (9) Ascites Current Visit: Yes Status: Acute Assessment and plan: s/p paracentesis. SBP ruled out Cyotology pending Culture no growth for now Continue Rocephin Lasix and spironolactone Qualifiers: Ascites type: due to alcoholic cirrhosis Qualified Code(s): K70.31 - Alcoholic cirrhosis of liver with ascites - Time Spent With Patient Total time spent is greater than 50% in coordination of care (as documented) at patient's floor/unit and/or counseling patient: - Subjective Interval history: Seen and examined at the bedside. 62-year-old male with alcohol abuse, admitted for decompensated liver cirrhosis with ascites, suspected UTI, Esophageal varices, Suspect CHF, Carpal tunnel No new complains - Constitutional Vitals: Temp Pulse Resp BP Pulse Ox 98.8 F 97 15 116/77 96 11/11/17 11:22 11/11/17 11:22 11/11/17 11:22 11/11/17 11:22 11/11/17 11:22 General appearance: Present: A&O X 3, morbidly obese, pleasant, no acute distress - Head Head exam: Present: atraumatic, normocephalic - Eye Eye exam: Present: PERRL, conjuntiva pink, sclera anicteric Pupils: Present: PERRL - Neck Neck exam general surgery: Present: supple, trachea midline. Absent: lymphadenopathy - Respiratory Respiratory exam: Present: CTAB. Absent: accessory muscle use, rales, rhonchi, wheezes - Cardiovascular Cardiovascular exam: Present: RRR, +S1, +S2. Absent: diastolic murmur, gallop, rubs, systolic murmur - GI/Abdominal GI/Abdominal exam: Present: distended (ascites), normal bowel sounds, soft, no peritoneal signs. Absent: tenderness - Extremities Exam Extremities exam: Present: pedal edema (chronic venous stasis changes), warm, radial pulses palpable and symmetrical. Absent: calf tenderness, cyanotic - Neurological Exam Neurological exam: Present: alert, CN II-XII intact, oriented X3, no focal deficits. Absent: pronater drift, facial droop, speech deficit - Skin Skin exam: Present: dry Internal Medicine: Result - Labs CBC & Chem 7: 11/11/17 06:43 11/11/17 06:43 Labs: Short CBC 11/11/17 Range/Units 06:43 WBC 5.6 (4.3-11.1) K/mcL Hgb 8.4 L (12.9-16.9) g/dL Hct 27.1 L (37.5-50.1) % Plt Count 149 (140-400) K/mcL Neutrophils # 3.7 (1.6-8.9) K/mcL BMP 11/11/17 06:43 Sodium 132 L Potassium 3.9 Chloride 101 Carbon Dioxide 23 BUN 14 Creatinine 0.70 Glucose 121 H Calcium 8.2 L Consult Discharge Plan - Plan Referrals: NONE,PCP [Primary Care Provider] - (please call residency Clinic upon discharge...)
--- NOTE | 2017-11-11 14:30 | Anesthesia Evaluation PreOp ---
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 HX Other Medical History: Hepatic (ETOH cirrhosis, ascites, portal HTN), Thyroid ( hypo), Other (anemia) Anesthesia History: No Prior Anesthetic Complications, Past Anesthesia (hernia, EGD) Alcohol Use: occasionally Drug use: none Medications and Allergies Allopurinol [Zyloprim 300 MG] 300 mg PO DAILY tablet 10/24/16 [Rx] Digoxin [Lanoxin] 0.25 mg PO DAILY tablet 10/24/16 [Rx] Levothyroxine [Synthroid] 50 mcg PO 0630 tablet 10/24/16 [Rx] Metoprolol [Lopressor] 25 mg PO BID tablet 10/24/16 [Rx] Diltiazem [Cardizem] 30 mg PO BID 11/09/17 [History] Furosemide [Lasix] 80 mg PO DAILY 11/09/17 [History] Potassium Chloride [Klor-Con 10] 20 meq PO DAILY 11/09/17 [History] Pregabalin [Lyrica] 200 mg PO TID 11/09/17 [History] Warfarin [Coumadin] 4 mg PO DAILY 11/09/17 [History] Enoxaparin [Lovenox] 150 mg SQ Q12HR 11/10/17 [History] Ferrous Sulfate [Iron] 325 mg PO DAILY 11/10/17 [History] Naproxen [Naprosyn] 500 mg PO BID PRN 11/10/17 [History] 3 Allergy/AdvReac Type Severity Reaction Status Date / Time tramadol AdvReac Itching Verified 10/21/16 23:53 - Meds/Allergy Pre-op Review Medications Reviewed: Yes Allergies Reviewed: Yes Beta Blockers on Current Med List: Yes If Beta Blockers taken, Date/Time (Last Dose taken): 1201 11/11/17 Anesthesia Results - Labs 11/11/17 06:43 11/11/17 06:43 - Imaging EKG: report reviewed ( Interpretive Statements ATRIAL FIBRILLATION MODERATE INTRAVENTRICULAR CONDUCTION DELAY MODERATE ST DEPRESSION Electronically Signed On 11-06-2017 6:59:48 EDT by Lula Ramos) Anesthesia Exam Vital Signs/O2 Sat, Most Current Temp Pulse Resp BP Pulse Ox 98.8 F 97 15 116/77 96 11/11/17 11:22 11/11/17 11:22 11/11/17 11:22 11/11/17 11:22 11/11/17 11:22 NPO (# of Hours): >8 - HEENT Pupil (Motor): Pupils equal, EOMI Mallampati: III Denture Type: Upper: Complete Oral Opening: Greater than 3 - CORN GRINDER LOC: Oriented CORN GRINDER Motor: Normal RUE, Normal LUE, Normal RLE, Normal LLE, Normal Face CORN GRINDER Sensory: Normal: RUE, LUE, RLE, LLE, Face - Cardiac Rhythm: Irregular - Pulmonary Breath Sounds: bilateral Clear Respiratory Effort: Symmetrical Anesthesia Assess/Plan ASA Score: 3 Modified [place] Scale for Level of Consciousness: Cooperative, oriented, and tranquil Anesthetic Plan: MAC Monitoring Plan: Standard Monitors Recovery Plan: PACU
[2017-11-11] MEDS: 0.9 % Sodium Chloride 500 ML IVC SCH (14:34)
--- NOTE | 2017-11-11 14:42 | Electrocardiograph Report ---
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
--- NOTE | 2017-11-11 15:26 | Anesthesia Evaluation Post Op ---
Date of Encounter: 11/11/17 Time of Encounter: 15:25 - Vital Signs Vital Signs: Vital Signs/O2 Sat, Most Current Temp Pulse Resp BP Pulse Ox 98.8 F 85 18 98/67 96 11/11/17 11:22 11/11/17 14:32 11/11/17 14:32 11/11/17 14:32 11/11/17 14:32 - Lungs Lungs: Clear Ascult./Percussion - Airway Airway: Non-obstructed - Cardiovascular Baseline Rhythm - Mental Status Mental Status: Alert & Oriented, Answers Appropriately - Pain Pain Scale: 0 - Nausea Vomiting Nausea Vomiting: Not Present - Hydration Hydration: NPO - Discharge PostOp Status: Transfer Patient to floor
--- NOTE | 2017-11-11 17:25 | Orthopedics Progress Note ---
Date of Encounter: 11/11/17 Time of Encounter: 13:20 - Assessment and Plan (1) Carpal tunnel syndrome on both sides Current Visit: Yes Status: Acute Plan was for carpal tunnel surgery by Dr. Ceballos tomorrow as previously scheduled however the utilization review board determined that since this surgery is not medically urgent it can be performed on outpatient basis at a later time and will not allow it to be performed during this admission. I discussed this with the patient, and while not happy about this decision he expressed understanding. Discussed with him also that the echo is still pending and would not be able to proceed with surgery until that is resulted. Patient instructed to call office upon discharge to reschedule the surgery. Orthopedics will sign off at this time but please call for any future questions. (2) Cubital tunnel syndrome on left Current Visit: Yes Status: Acute Scheduled for surgery as above Subjective Principal diagnosis: carpal tunnel, cubital tunnel Interval history: Patient doing well today,carpal tunnel symptoms persist. He is awaiting colonoscopy and echo today. Only concern is that he is hungry since he hasnt eaten in a couple days. Objective Vital signs: Vital Signs Temp Pulse Resp BP Pulse Ox 11/11/17 15:48 97.6 F 82 16 108/65 96 11/11/17 14:32 85 18 98/67 96 11/11/17 11:22 98.8 F 97 15 116/77 96 11/11/17 07:21 98.8 F 73 16 110/67 96 11/11/17 03:44 98.8 F 91 18 120/68 95 11/10/17 23:40 98.2 F 85 18 131/83 96 11/10/17 19:54 97.9 F 96 18 105/63 96 Intake and Output 11/11/17 11/11/17 11/11/17 07:59 15:59 23:59 Intake Total 1000 / 1000 200 / 200 Balance 1000 / 1000 200 / 200 Intake: IV Fluids 200 / 200 0.9 % Sodium Chloride 500 ML @ 200 / 200 50 mls/hr IVC .Q10H JACKY Rx#: [id number] Oral 1000 / 1000 0 / 0 Other: Meal npo Percent of Meal Consumed 0% # Voids 2 # Bowel Movement Diapers 3 Blood Glucose* 118 99 - Labs CBC & BMP: 11/11/17 06:43 11/11/17 06:43 Labs: Abnormal lab results RBC 2.89 M/mcL (4.19-5.50) L 11/11/17 06:43 Hgb 8.4 g/dL (12.9-16.9) L 11/11/17 06:43 Hct 27.1 % (37.5-50.1) L 11/11/17 06:43 MCHC 31.0 g/dL (31.6-35.5) L 11/11/17 06:43 RDW 17.6 % (11.5-14.5) H 11/11/17 06:43 Nucleated RBCs/100 WBC 0.4 /100 WBC (0) H 11/11/17 06:43 Polychromasia 1+ (Not Present) A 11/11/17 06:43 Anisocytosis 1+ (Not Present) A 11/11/17 06:43 Macrocytosis Present (Not Present) A 11/11/17 06:43 Sodium 132 mEq/L (136-145) L 11/11/17 06:43 Glucose 121 mg/dL (70-105) H 11/11/17 06:43 POC Glucose 114 mg/dL (70-99) H 11/10/17 19:56 Calculated Osmolality 276 (280-300) L 11/11/17 06:43 Calcium 8.2 mg/dL (8.6-10.3) L 11/11/17 06:43 Iron 14 mcg/dL (65-175) L 11/10/17 06:16 % Saturation 6 % (20-55) L 11/10/17 06:16 Transferrin 167 mg/dL (203-362) L 11/10/17 06:16 Total Bilirubin 1.6 mg/dL (0.3-1.0) H 11/10/17 04:05 Consult Discharge Plan - Plan Referrals: NONE,PCP [Primary Care Provider] - (please call residency Clinic upon discharge...)
[2017-11-11] MEDS: Diltiazem CD (24hr) 120 MG CAPSULE PO SCH (18:12)
[2017-11-11] MEDS ORDERED: Perflutren Lipid Microsphere 2 ML VIAL ONE (19:39)
[2017-11-12] MEDS: OXYCODONE Oral CONC 10 MG/0.5 ML ORAL.SYG SL PRN ×6 (01:35→20:45)
[2017-11-12 04:25] LABS: Basophils % 0.6 %; Eosinophils # 0.2 K/mcL (0.0-0.6); Eosinophils % 3.6 %; Hematocrit 27.6 % (37.5-50.1); Hemoglobin 8.5 g/dL (12.9-16.9); Immature Granulocytes % 0.4 % (0-4); Lymphocytes # 0.7 K/mcL (0.6-4.6); Lymphocytes % 15.2 %; Mean Corpuscular HGB Conc 30.8 g/dL (31.6-35.5); Mean Corpuscular Volume 94.2 fL (83.0-100.0); Mean Platelet Volume 11.5 fL (9.4-12.4); Monocytes # 0.7 K/mcL (0.0-1.3); Platelet Count 150 K/mcL (140-400); Red Blood Count 2.93 M/mcL (4.19-5.50); Red Cell Distribution Width 17.6 % (11.5-14.5); Segmented Neutrophils % 65.2 %
[2017-11-12 04:51] LABS: BUN/Creatinine Ratio 20 (6-26); Blood Urea Nitrogen 15 mg/dL (8-23); Calcium 8.3 mg/dL (8.6-10.3); Carbon Dioxide 23 mEq/L (23-29); Chloride 99 mEq/L (98-107); Glucose 136 mg/dL (70-105); Osmolality,Calculated 275 (280-300); Potassium 3.6 mEq/L (3.5-5.1); Sodium 131 mEq/L (136-145); eGFR For African Americans > 60 (> 60); eGFR For Non-African Americans > 60 (> 60)
[2017-11-12] MEDS: *HR* Enoxaparin 150 MG/ML SYRINGE SQ SCH ×2 (06:21→18:21)
--- NOTE | 2017-11-12 07:21 | Electrocardiograph Report ---
[address] [place] [address] Test Date: 2017-11-11 Pat Name: Catarino Lomeli Department: 112 Room: 2A23 Gender: M Wood Room Hand: : 1955 Requested By: Mami Ortega Order Number: [id number] Reading MD: Adriel Ivey Measurements Intervals Nelson Rate: 86 P: [place]: 0 QRS: 56 QRSD: 110 T: 0 QT: 371 QTc: 415 Interpretive Statements ATRIAL FIBRILLATION Poor R wave progression POSSIBLE INFERIOR MYOCARDIAL INFARCTION, PROBABLY OLD Electronically Signed On 11-12-2017 7:19:53 EDT by Adriel Ivey
[2017-11-12] MEDS: 0.9 % Sodium Chloride 500 ML IVC SCH (08:44)
[2017-11-12] MEDS: Insulin LISPRO 300 UNITS/3 ML VIAL SQ SCH ×4 (08:45→20:45)
[2017-11-12] MEDS: Furosemide 40 MG/4 ML VIAL IVP SCH ×2 (09:58→18:14)
[2017-11-12] MEDS: cefTRIAXone 1,000 MG in Water for inj. (sterile) 20 ML 10 ML IVP SCH (09:58)
[2017-11-12] MEDS: Pregabalin 50 MG CAPSULE PO SCH ×3 (09:59→20:44)
[2017-11-12] MEDS: *HR* Digoxin 0.25 MG TABLET PO SCH (09:59)
[2017-11-12] MEDS ORDERED: Furosemide 40 MG/4 ML VIAL IVP ONE (13:17)
--- NOTE | 2017-11-12 13:31 | Internal Med Progress Note ---
Date of Encounter: 11/12/17 Time of Encounter: 13:29 - Assessment and plan (1) Wrist pain Current Visit: Yes Status: Chronic Assessment and plan: Patient has carpal tunnel and surgery scheduled for November 12. Orthopedics has been consulted non-emergently ,will follow recommendations Continue to hold warfarin, continue Lovenox 150 mg SQ twice a day For procedure as out-patient Qualifiers: Laterality: right Qualified Code(s): M25.531 - Pain in right wrist (2) UTI (urinary tract infection) Current Visit: Yes Status: Ruled-out Assessment and plan: Ruled out. Urine culture from 11/09 with no growth Discontinue Rocephin. Qualifiers: Urinary tract infection type: acute cystitis Hematuria presence: without hematuria Qualified Code(s): N30.00 - Acute cystitis without hematuria (3) Atrial fibrillation Current Visit: Yes Status: Chronic Assessment and plan: Continue home medications for history of A. fib. Currently stable. Qualifiers: Atrial fibrillation type: chronic Qualified Code(s): I48.2 - Chronic atrial fibrillation (4) Hypothyroidism Current Visit: Yes Status: Chronic Assessment and plan: Continue home medications Synthroid Qualifiers: Hypothyroidism type: unspecified Qualified Code(s): E03.9 - Hypothyroidism , unspecified (5) DM type 2 (diabetes mellitus, type 2) Current Visit: Yes Status: Chronic Assessment and plan: Low dose SSI Qualifiers: Diabetes mellitus fdc insulin use: without fdc use Diabetes mellitus complication status: with skin complications Diabetes mellitus complication detail: with foot ulcer Qualified Code(s): E11.621 - Type 2 diabetes mellitus with foot ulcer; L97.509 - Non-pressure chronic ulcer of other part of unspecified foot with unspecified severity (6) Cirrhosis of liver Current Visit: Yes Status: Chronic Assessment and plan: Alcoholic decompensated liver cirrhosis GI eval pending at time of review s/p 3L ascitic fluid drainage,work up report noted Continue lasix and spironolactone Additional lasix today 40mg IVP EGD showed portal gastropathy and Grade I non-bleeding varices Colonoscopy showed colonic angiodysplasia with grade 2 nonbleeding hemorrhoids. Continue propanolol Renal function stable on current dose of diuretics Qualifiers: Hepatic cirrhosis type: alcoholic cirrhosis Ascites presence: with ascites Qualified Code(s): K70.31 - Alcoholic cirrhosis of liver with ascites (7) DVT prophylaxis Current Visit: Yes Status: Acute Assessment and plan: Patient on Lovenox (8) Anemia Current Visit: Yes Status: Chronic Assessment and plan: Chronic,stable,follow anemia workup Qualifiers: Anemia type: unspecified type Qualified Code(s): D64.9 - Anemia, unspecified (9) Ascites Current Visit: Yes Status: Acute Assessment and plan: s/p paracentesis. SBP ruled out Cyotology pending Culture no growth for now Discontinue Rocephin Continue Lasix and spironolactone Qualifiers: Ascites type: due to alcoholic cirrhosis Qualified Code(s): K70.31 - Alcoholic cirrhosis of liver with ascites - Time Spent With Patient Total time spent is greater than 50% in coordination of care (as documented) at patient's floor/unit and/or counseling patient: - Subjective Interval history: Seen and examined at the bedside. 62-year-old male with alcohol abuse, admitted for decompensated liver cirrhosis with ascites, suspected UTI, Esophageal varices, Suspect CHF, Carpal tunnel No new complains We will give additional Lasix 40 mg daily. - Constitutional Vitals: Temp Pulse Resp BP Pulse Ox 99.3 F 84 18 123/78 96 11/12/17 11:46 11/12/17 11:46 11/12/17 11:46 11/12/17 11:46 11/12/17 11:46 General appearance: Present: A&O X 3, morbidly obese, pleasant, no acute distress - Head Head exam: Present: atraumatic, normocephalic - Eye Eye exam: Present: PERRL, conjuntiva pink, sclera anicteric Pupils: Present: PERRL - Neck Neck exam general surgery: Present: supple, trachea midline. Absent: lymphadenopathy - Respiratory Respiratory exam: Present: CTAB. Absent: accessory muscle use, rales, rhonchi, wheezes - Cardiovascular Cardiovascular exam: Present: RRR, +S1, +S2. Absent: diastolic murmur, gallop, rubs, systolic murmur - GI/Abdominal GI/Abdominal exam: Present: normal bowel sounds, soft, no peritoneal signs. Absent: distended, tenderness - Extremities Exam Extremities exam: Present: pedal edema (Chronic venostasis changes bilaterally) - Neurological Exam Neurological exam: Present: alert, CN II-XII intact, oriented X3, no focal deficits. Absent: pronater drift, facial droop, speech deficit - Skin Skin exam: Present: dry, intact Internal Medicine: Result - Labs CBC & Chem 7: 11/12/17 04:05 11/12/17 04:05 Labs: Short CBC 11/12/17 Range/Units 04:05 WBC 4.7 (4.3-11.1) K/mcL Hgb 8.5 L (12.9-16.9) g/dL Hct 27.6 L (37.5-50.1) % Plt Count 150 (140-400) K/mcL Neutrophils # 3.0 (1.6-8.9) K/mcL BMP 11/12/17 04:05 Sodium 131 L Potassium 3.6 Chloride 99 Carbon Dioxide 23 BUN 15 Creatinine 0.74 Glucose 136 H Calcium 8.3 L Cardiac Enzymes 11/11/17 Range/Units 20:04 Troponin I 0.04 H* (< 0.04) ng/mL - Impressions Impressions Echocardiogram 11/11/17 04:25 Impressions: LVEF 60-65%. Mild concentric left ventricular hypertrophy. Indeterminate diastolic function. Definity echo contrast was used. Normal right ventricular structure and function. Mild mitral regurgitation. Mild tricuspid regurgitation. Moderate-severe aortic stenosis. Mild pulmonary hypertension. Left Ventricular Wall Motion: Rest Echo Findings All wall segments showed normal motion. Findings: Study Quality * Technically adequate exam. ECG Findings * Normal sinus rhythm. Left Ventricle * LVEF 60-65%. * Mild concentric left ventricular hypertrophy. * Indeterminate diastolic function. * Definity echo contrast was used. Right Ventricle * Normal right ventricular structure and function. Left Atrium * Severely dilated left atrium. Right Atrium * Moderately dilated right atrium. Mitral Valve * Normal mitral valve structure. * No mitral stenosis. * Mild mitral annular calcification * Mild mitral regurgitation. Tricuspid Valve * Tricuspid valve not well visualized. * Mild tricuspid regurgitation. * Estimated RA pressure is 8 mmHg. * Estimated RVSP is 44 mmHg. * Mild pulmonary hypertension. Aortic Valve * Aortic valve not well visualized. * Moderate-severe aortic stenosis. PV 3.2m/s, MG 23 mmHg, DI 0.3, GISSELL 0.9cm2 * No aortic regurgitation. Pulmonic Valve * Pulmonic valve is not well visualized. * No pulmonic stenosis. * No pulmonic regurgitation. Pulmonary Artery * Pulmonary artery not well visualized. Aorta * Normally sized aortic root. Pericardium * There is no pericardial effusion present. Interatrial Septum * No evidence of PFO by color Doppler. IVC * The IVC is not dilated. * < 50% respiratory change. Consult Discharge Plan - Plan Referrals: NONE,PCP [Primary Care Provider] - (please call [facility] upon discharge...)
[2017-11-12] MEDS: Diltiazem CD (24hr) 120 MG CAPSULE PO SCH (18:14)
[2017-11-13] MEDS: OXYCODONE Oral CONC 10 MG/0.5 ML ORAL.SYG SL PRN ×2 (01:00→05:19)
[2017-11-13 05:01] LABS: Basophils % 0.5 %; Eosinophils # 0.2 K/mcL (0.0-0.6); Eosinophils % 4.3 %; Hematocrit 26.4 % (37.5-50.1); Hemoglobin 7.9 g/dL (12.9-16.9); Immature Granulocytes % 0.2 % (0-4); Lymphocytes # 0.8 K/mcL (0.6-4.6); Mean Corpuscular HGB Conc 29.9 g/dL (31.6-35.5); Mean Corpuscular Hemoglobin 27.8 pg (28.0-33.3); Mean Platelet Volume 11.7 fL (9.4-12.4); Monocytes # 0.7 K/mcL (0.0-1.3); Monocytes % 15.3 %; Neutrophils # 2.7 K/mcL (1.6-8.9); Platelet Count 154 K/mcL (140-400); Red Blood Count 2.84 M/mcL (4.19-5.50); Red Cell Distribution Width 17.5 % (11.5-14.5); Segmented Neutrophils % 61.7 %
[2017-11-13 05:18] LABS: BUN/Creatinine Ratio 23 (6-26); Blood Urea Nitrogen 20 mg/dL (8-23); Calcium 8.6 mg/dL (8.6-10.3); Carbon Dioxide 21 mEq/L (23-29); Chloride 101 mEq/L (98-107); Glucose 129 mg/dL (70-105); Osmolality,Calculated 276 (280-300); Sodium 131 mEq/L (136-145); eGFR For African Americans > 60 (> 60); eGFR For Non-African Americans > 60 (> 60)
[2017-11-13] MEDS: *HR* Enoxaparin 150 MG/ML SYRINGE SQ SCH (05:18)
[2017-11-13 08:06] VITALS: BP 129/88
[2017-11-13] MEDS: Insulin LISPRO 300 UNITS/3 ML VIAL SQ SCH (08:12)
[2017-11-13] MEDS: *HR* Digoxin 0.25 MG TABLET PO SCH (08:20)
[2017-11-13] MEDS: Pregabalin 50 MG CAPSULE PO SCH (08:20)
[2017-11-13] MEDS: Furosemide 40 MG/4 ML VIAL IVP SCH (08:21)
--- NOTE | 2017-11-13 09:22 | Discharge Summary ---
- NOTES TO OUTPATIENT PROVIDER Notes to Outpatient Provider: The patient was admitted for management of Ascites , decompensated liver cirrhosis, he had paracentesis done which ruled out spontaneous bacterial peritonitis, he was managed with Lasix and spironolactone. He had an EGD done which showed portal gastropathy and grade 1 nonbleeding varices. Colonoscopy showed colonic angiodysplasia weight 2 nonbleeding hemorrhoids angiodysplasias were clipped. He has also been started on propanolol. Metoprolol has been discontinued, and states have been discontinued and patient educated not to use NSAIDs. Recommend protocol for management of liver cirrhosis by primary care physician, monitor complete blood count for anemia. Orders not resulted at time of discharge: Pending orders 11/10/17 08:15 AFP Tumor Marker Non- Routine Culture,Body Fluid [RM] Routine 11/14/17 04:00 CBC [Complete Blood Count] [HEME] AM 0400 Chem 7 [Basic Metabolic Panel] AM 0400 11/15/17 04:00 CBC [Complete Blood Count] [HEME] AM 0400 Date of Encounter: 11/13/17 Time of Encounter: 09:20 - Discharge Diagnosis (1) Wrist pain Priority: Secondary Status: Chronic Qualifiers: Laterality: right Qualified Code(s): M25.531 - Pain in right wrist (2) UTI (urinary tract infection) Priority: Primary Status: Ruled-out Qualifiers: Urinary tract infection type: acute cystitis Hematuria presence: without hematuria Qualified Code(s): N30.00 - Acute cystitis without hematuria (3) Atrial fibrillation Priority: Secondary Status: Chronic Qualifiers: Atrial fibrillation type: chronic Qualified Code(s): I48.2 - Chronic atrial fibrillation (4) Hypothyroidism Priority: Secondary Status: Chronic Qualifiers: Hypothyroidism type: unspecified Qualified Code(s): E03.9 - Hypothyroidism , unspecified (5) DM type 2 (diabetes mellitus, type 2) Priority: Secondary Status: Chronic Qualifiers: Diabetes mellitus long term care administrator insulin use: without shelter use Diabetes mellitus complication status: with skin complications Diabetes mellitus complication detail: with foot ulcer Qualified Code(s): E11.621 - Type 2 diabetes mellitus with foot ulcer; L97.509 - Non-pressure chronic ulcer of other part of unspecified foot with unspecified severity (6) Cirrhosis of liver Priority: Primary Status: Chronic Qualifiers: Hepatic cirrhosis type: alcoholic cirrhosis Ascites presence: with ascites Qualified Code(s): K70.31 - Alcoholic cirrhosis of liver with ascites (7) DVT prophylaxis Priority: Primary Status: Acute (8) Anemia Priority: Secondary Status: Chronic Qualifiers: Anemia type: unspecified type Qualified Code(s): D64.9 - Anemia, unspecified (9) Ascites Priority: Primary Status: Acute Qualifiers: Ascites type: due to alcoholic cirrhosis Qualified Code(s): K70.31 - Alcoholic cirrhosis of liver with ascites Hospital course: Mr. Lomeli is a 62 year old male Seen and examined at bedside with spouse and RN The patient was admitted for management of Ascites, decompensated liver cirrhosis, he had paracentesis done which ruled out spontaneous bacterial peritonitis, he was managed with Lasix and spironolactone. He had an EGD done which showed portal gastropathy and grade 1 non-bleeding varices. Colonoscopy showed colonic angiodysplasia weight 2 nonbleeding hemorrhoids angiodysplasias were clipped. He has also been started on propanolol. Metoprolol has been discontinued, and states have been discontinued and patient educated not to use NSAIDs. Initially started on Rocephin empirically for suspected urinary tract infection, however, urine culture resulted with no growth. Also, ascitic fluid with no growth and spontaneous bacterial peritonitis ruled out, therefore antibiotics was discontinued. Recommend protocol for management of liver cirrhosis by primary care physician, monitor complete blood count for anemia. Follow up with othopedics surgery for management of carpal tunnel syndrome as out-patient Educated on alcohol cessation Discharge discussed with: patient, family, nurse, social work, case management - Time Spent with Patient Total time spent providing and/or coordinating discharge services: Greater than 30 minutes - Discharge Medications Prescriptions: Enoxaparin [Lovenox] 150 mg SQ Q12HR #18 syringe Diltiazem CD (24hr) [Cardizem CD] 120 mg PO QPM #30 cap.er.24h Propranolol [Inderal] 20 mg PO BID #60 tablet Spironolactone [Aldactone] 50 mg PO DAILY #30 tablet Home Medications: Allopurinol [Zyloprim 300 MG] 300 mg PO DAILY tablet 10/24/16 [Rx] Digoxin [Lanoxin] 0.25 mg PO DAILY tablet 10/24/16 [Rx] Levothyroxine [Synthroid] 50 mcg PO 0630 tablet 10/24/16 [Rx] Furosemide [Lasix] 80 mg PO DAILY 11/09/17 [History] Potassium Chloride [Klor-Con 10] 20 meq PO DAILY 11/09/17 [History] Pregabalin [Lyrica] 200 mg PO TID 11/09/17 [History] Ferrous Sulfate [Iron] 325 mg PO DAILY 11/10/17 [History] Diltiazem CD (24hr) [Cardizem CD] 120 mg PO QPM #30 cap.er.24h 11/13/17 [Rx] Enoxaparin [Lovenox] 150 mg SQ Q12HR #18 syringe 11/13/17 [Rx] Propranolol [Inderal] 20 mg PO BID #60 tablet 11/13/17 [Rx] Spironolactone [Aldactone] 50 mg PO DAILY #30 tablet 11/13/17 [Rx] Allergies/Adverse Reactions: 3 Allergy/AdvReac Type Severity Reaction Status Date / Time tramadol AdvReac Itching Verified 10/21/16 23:53 Date of admission: 11/10/17 02:43 Primary care physician: PCP NONE Consults: 11/10/17 04:01 Consult to Orthopedic Surgery [CONS] Routine Consulting Provider: Aurelio Pham Reason for Consult: Patient scheduled for carpal tunnel surgery Call Completed: Yes 11/10/17 04:02 Consult to Gastroenterology [CONS] Routine Consulting Provider: Gastroenterology Sera Reason for Consult: liver cirrhosis/ esophageal varices Call Completed: No 11/10/17 08:06 Consult to Interventional Radiology [CONS] Routine Consulting Provider: Radiology Interventional Cols Reason for Consult: For paracentensis Call Completed: Yes Discharging clinician: Hitesh Araiza Anticipated date of discharge: 11/13/17 - Constitutional Vitals: Temp Pulse Resp BP Pulse Ox 98.6 F 80 20 129/88 95 11/13/17 07:56 11/13/17 07:56 11/13/17 07:56 11/13/17 07:56 11/13/17 08:27 General appearance: Present: A&O X 3, morbidly obese, pleasant, no acute distress - Head Head exam: Present: atraumatic, normocephalic - Eye Eye exam: Present: PERRL, conjuntiva pink, sclera anicteric Pupils: Present: PERRL - Neck Neck exam general surgery: Present: supple, trachea midline. Absent: lymphadenopathy - Respiratory Respiratory exam: Present: CTAB. Absent: accessory muscle use, rales, rhonchi, wheezes - Cardiovascular Cardiovascular exam: Present: RRR, +S1, +S2. Absent: diastolic murmur, gallop, rubs, systolic murmur - GI/Abdominal GI/Abdominal exam: Present: normal bowel sounds, soft, no peritoneal signs. Absent: distended, tenderness - Extremities Exam Additional comments: chronic venous stasis changes - Neurological Exam Neurological exam: Present: alert, CN II-XII intact, oriented X3, no focal deficits. Absent: pronater drift, facial droop, speech deficit - Skin Skin exam: Present: dry, intact - Patient Status Disposition: Home, Self-Care Condition: Fair Functional capacity at discharge: independent ambulation Overall status at discharge: patient is back to baseline - Discharge Instructions Instructions: Propranolol (By mouth), Spironolactone (By mouth), Diltiazem (By mouth), Enoxaparin (Injection), Atrial Fibrillation (DC) Follow Up With: Felix Villatoro MD [Partnered Physician] - 11/20/17 11:00 am (PLEASE BRING YOUR INSURANCE CARD, AND PHOTO ID TO YOUR APPOINTMENT, ANY BOTTLES OF MEDICATION YOU ARE CURRENTLY TAKING. YOU WILL HAVE PAPER WORK TO FILL OUT ONCE YOU GET THERE. IF YOU NEED TO RESCHEDULE PLEASE GIVE A 24HR NOTICE AND DO NOT HIT THE BUTTON FOR NEW PATIENT IF YOU CALL. THANK YOU!) - Diet and Activity Activity: resume usual activities as tolerated Diet: diabetic diet, low fat, low cholesterol, low salt diet - VTE Documentation of Mechanical Device: Graduated compression elastic hosiery
== END 2017-11-13 09:39 | disposition home or self-care (01) | DRG 433 ==
LOC: 2ANU → SUATTDRO 02:43
PROVIDERS: ADMIT Internal Medicine; ATTEND Internal Medicine

== ENCOUNTER 2018-02-05 21:49 | Inpatient (IN) ==
--- NOTE | 2018-02-05 22:09 | Emergency Department Note ---
Disposition Clinical Impression: Hyperkalemia Cirrhosis of liver Qualifiers: Hepatic cirrhosis type: alcoholic cirrhosis Ascites presence: with ascites Qualified Code(s): K70.31 - Alcoholic cirrhosis of liver with ascites Ascites Qualifiers: Ascites type: due to alcoholic cirrhosis Qualified Code(s): K70.31 - Alcoholic cirrhosis of liver with ascites Disposition: Admitted As Inpatient Condition: Fair Time of Disposition: 00:47 General Adult HPI - General Chief complaint: ED Shortness of Breath/Dyspnea Stated complaint: swelling Time Seen by Provider: 02/05/18 21:53 Source: EMS Limitations: no limitations Nursing Notes Reviewed: Yes Vital Signs Reviewed: Yes - History of Present Illness HPI Narrative: Male patient with a history of alcoholic hepatic cirrhosis presenting to the emergency department with an extended abdomen. He states that he has had 3 paracentesis over the past 3 weeks. The most recent being yesterday. They took off 10 L of ascites. He reports that today he believes all the fluid is accumulated back. His abdomen is as distended as it was before yesterday. He denies any fevers or chills. He does report some shortness of breath whenever he is moving her trying to bend over. Denies any chest pain. Does report 2 episodes of diarrhea daily as he is taking Kayexalate. Denies any rashes. Pain Scale: 0 - Related Data Home Medications Medication Instructions Recorded Confirmed Furosemide [Lasix] 80 mg PO DAILY 11/09/17 01/15/18 Potassium Chloride [Klor-Con 10] 20 meq PO DAILY 11/09/17 01/15/18 Pregabalin [Lyrica] 200 mg PO TID 11/09/17 01/15/18 Ferrous Sulfate [Iron] 325 mg PO DAILY 11/10/17 01/15/18 Previous Rx's Medication Instructions Recorded Allopurinol [Zyloprim 300 MG] 300 mg PO DAILY tablet 10/24/16 Digoxin [Lanoxin] 0.25 mg PO DAILY tablet 10/24/16 Levothyroxine [Synthroid] 50 mcg PO 30 tablet 10/24/16 Diltiazem CD (24hr) [Cardizem CD] 120 mg PO QPM #30 cap.er.24h 11/13/17 Propranolol [Inderal] 20 mg PO BID #60 tablet 11/13/17 Spironolactone [Aldactone] 50 mg PO DAILY #30 tablet 11/13/17 Allergies Allergy/AdvReac Type Severity Reaction Status Date / Time tramadol AdvReac Itching Verified 01/15/18 16:18 All systems ED: reviewed and negative except as stated. Review of Systems: As Per HPI Constitutional: Denies: fever, chills Cardiovascular: Denies: chest pain, syncope Respiratory: Denies: cough, dyspnea Gastrointestinal: Denies: abdominal pain, nausea, vomiting, diarrhea Genitourinary: Denies: urgency, dysuria, frequency, hematuria Musculoskeletal: Reports: back pain. Denies: neck pain Integumentary: Denies: rash Neurological: Denies: weakness Past Medical History - Past Medical History Attestation: Yes The following information was validated with the patient. Source: patient Medical history: Reports: atrial fibrillation, cirrhosis, COPD, DVT, hypertension, other Surgical history: Reports: herniorrhaphy, orthopedic, other, other Psychiatric history: Reports: no psych history - Social History Smoking Status: Former smoker Smokeless Tobacco Status: No Alcohol use: Reports: none, occasionally Drug use: Reports: none Physical Exam - General Limitations: no limitations General appearance: alert, in no apparent distress - Head Head exam: atraumatic, normocephalic, normal inspection - Eye Eye exam: Present: normal appearance, PERRL, EOMI - ENT ENT exam: normal exam, normal oropharynx, mucous membranes moist - Neck Neck exam: Present: normal inspection, full ROM, trachea midline - Chest Chest inspection: Present: normal inspection, symmetric chest wall rise. Absent : tenderness, abscess - Respiratory Respiratory exam: Present: normal lung sounds bilaterally. Absent: respiratory distress, accessory muscle use - Cardiovascular Cardiovascular exam: Present: regular rate, normal rhythm, normal heart sounds - Abdominal Exam Abdominal exam: Present: soft, Non-Tender, distention, other (Nonrigid. Fluid wave. Pitting edema to lower abdomen.). Absent: tenderness, guarding, rebound , rigidity, mass - Extremities Exam Extremities exam: Present: normal inspection, full ROM, normal capillary refill , pedal edema (Pitting edema up to her abdomen.). Absent: tenderness - Back Exam Back exam: Present: normal inspection, full ROM, tenderness (Left-sided near L1- L3.) - Neurological Exam Neurological exam: Present: alert, oriented X3 - Psychiatric Psychiatric exam: Present: normal affect, normal mood - Skin Skin exam: Present: warm, dry, intact, normal color Course Course Narrative: Patient does have a grossly distended abdomen. It is soft. There is a fluid wave. He does have pitting edema to his abdomen area. Patient is also hyperkalemic. We will provide the patient with calcium insulin and glucose while he is here. Bedside ultrasound did show a significant amount of ascites and patient's abdomen. We will admit patient to the hospital for further evaluation and possible paracentesis. Patient is agreeable with this. Patient' s hemoglobin is 8.3. This is actually elevated from the previous. His bilirubin is also mildly elevated. The area where patient had his paracentesis yesterday is not erythematous. It is not weeping. There is skin glue over top of the area. He does not have a gross pain whenever I palpate his abdomen. Vital Signs Temperature 98.3 F 02/05/18 21:54 Pulse Rate 70 02/05/18 21:54 Respiratory Rate 20 02/05/18 21:54 Blood Pressure 103/63 02/05/18 21:54 O2 Sat by Pulse Oximetry 100 02/05/18 21:54 Temperature 98.3 F 02/05/18 21:54 Pulse Rate 77 02/05/18 23:55 Respiratory Rate 20 02/05/18 23:55 Blood Pressure 109/64 02/05/18 23:55 O2 Sat by Pulse Oximetry 97 02/05/18 23:55 Oxygen Delivery Oxygen Delivery Room Air Procedures - Ultrasound-Other Narrative: Bedside ultrasound performed by me and interpreted by me and Dr. Lara, showed a moderate amount of ascites to his abdomen. This is also around the liver capsule. Medical Decision Making - Medical Records Medical records reviewed: Yes I reviewed the patient's medical records. - Lab Data Lab results reviewed: Yes I reviewed the patient's lab results. Result diagrams: 02/05/18 22:18 02/05/18 22:18 Lab Results 02/05/18 02/05/18 02/05/18 Range/Units 22:18 22:18 22:18 WBC 6.6 (4.3-11.1) K/mcL RBC 3.58 L (4.19-5.50) M/mcL Hgb 8.3 L (12.9-16.9) g/dL Hct 28.4 L (37.5-50.1) % MCV 79.3 L (83.0-100.0) fL MCH 23.2 L (28.0-33.3) pg MCHC 29.2 L (31.6-35.5) g/dL RDW 18.9 H (11.5-14.5) % Plt Count 300 (140-400) K/mcL MPV 9.7 (9.4-12.4) fL Immature Gran % 0.5 (0-4) % Seg Neutrophils % 75.8 % Lymphocytes % 8.1 % Monocytes % 13.8 % Eosinophils % 1.2 % Basophils % 0.6 % Neutrophils # 5.0 (1.6-8.9) K/mcL Lymphocytes # 0.5 L (0.6-4.6) K/mcL Monocytes # 0.9 (0.0-1.3) K/mcL Eosinophils # 0.1 (0.0-0.6) K/mcL Basophils # 0.0 (0.0-0.2) K/mcL PT 20.0 H (9.4-12.1) Seconds INR 1.8 Sodium 130 L (136-145) mEq/L Potassium 5.5 H (3.5-5.1) mEq/L Chloride 104 (98-107) mEq/L Carbon Dioxide 20 L (23-29) mEq/L BUN 23 (8-23) mg/dL Creatinine 0.78 (0.70-1.30) mg/dL Est GFR ( Amer) > 60 (> 60) Est GFR (Non-Af Amer) > 60 (> 60) BUN/Creatinine Ratio 29 H (6-26) Glucose 112 H (70-105) mg/dL Calculated Osmolality 274 L (280-300) Lactic Acid (0.5-2.2) mmol/L Calcium 9.3 (8.6-10.3) mg/dL Total Bilirubin 1.1 H (0.3-1.0) mg/dL Direct Bilirubin 0.4 H (0.0-0.2) mg/dL Indirect Bilirubin 0.7 (0.0-1.2) mg/dL AST 20 (13-39) Units/L ALT 10 (7-52) Units/L Alkaline Phosphatase 131 H (34-104) Units/L Ammonia (16-53) mcmol/L Serum Total Protein 7.3 (6.4-8.9) g/dL Albumin 3.6 (3.5-5.7) g/dL Globulin 3.7 H (2.4-3.5) g/dL Albumin/Globulin Ratio 1.0 L (1.1-2.2) Lipase 16 (11-82) Units/L Urine Color (Yellow) Urine Clarity (Clear) Urine pH (5.0-8.0) pH Units Ur Specific [place] (1.010-1.025) Urine Protein (Neg-Trace) mg/dL Urine Glucose (UA) (Normal) mg/dL Urine Ketones (Negative) mg/dL Urine Blood (Negative) Urine Nitrite (Negative) Urine Bilirubin (Negative) Urine Urobilinogen (Normal) mg/dL Ur Leukocyte Esterase (Negative) Ur Culture Indicated? (NO) 02/05/18 02/05/18 02/05/18 Range/Units 22:18 22:41 22:53 WBC (4.3-11.1) K/mcL RBC (4.19-5.50) M/mcL Hgb (12.9-16.9) g/dL Hct (37.5-50.1) % MCV (83.0-100.0) fL MCH (28.0-33.3) pg MCHC (31.6-35.5) g/dL RDW (11.5-14.5) % Plt Count (140-400) K/mcL MPV (9.4-12.4) fL Immature Gran % (0-4) % Seg Neutrophils % % Lymphocytes % % Monocytes % % Eosinophils % % Basophils % % Neutrophils # (1.6-8.9) K/mcL Lymphocytes # (0.6-4.6) K/mcL Monocytes # (0.0-1.3) K/mcL Eosinophils # (0.0-0.6) K/mcL Basophils # (0.0-0.2) K/mcL PT (9.4-12.1) Seconds INR Sodium (136-145) mEq/L Potassium (3.5-5.1) mEq/L Chloride (98-107) mEq/L Carbon Dioxide (23-29) mEq/L BUN (8-23) mg/dL Creatinine (0.70-1.30) mg/dL Est GFR ( Amer) (> 60) Est GFR (Non-Af Amer) (> 60) BUN/Creatinine Ratio (6-26) Glucose (70-105) mg/dL Calculated Osmolality (280-300) Lactic Acid 1.8 (0.5-2.2) mmol/L Calcium (8.6-10.3) mg/dL Total Bilirubin (0.3-1.0) mg/dL Direct Bilirubin (0.0-0.2) mg/dL Indirect Bilirubin (0.0-1.2) mg/dL AST (13-39) Units/L ALT (7-52) Units/L Alkaline Phosphatase (34-104) Units/L Ammonia 28 (16-53) mcmol/L Serum Total Protein (6.4-8.9) g/dL Albumin (3.5-5.7) g/dL Globulin (2.4-3.5) g/dL Albumin/Globulin Ratio (1.1-2.2) Lipase (11-82) Units/L Urine Color Yellow (Yellow) Urine Clarity Clear (Clear) Urine pH 6.0 (5.0-8.0) pH Units Ur Specific [place] 1.016 (1.010-1.025) Urine Protein Negative (Neg-Trace) mg/dL Urine Glucose (UA) Normal (Normal) mg/dL Urine Ketones Negative (Negative) mg/dL Urine Blood Negative (Negative) Urine Nitrite Negative (Negative) Urine Bilirubin Negative (Negative) Urine Urobilinogen Normal (Normal) mg/dL Ur Leukocyte Esterase Negative (Negative) Ur Culture Indicated? NO (NO) - Radiology Data Radiology results reviewed: Yes I reviewed the patient's radiology results. Chest X-Ray 02/05/18 22:58 IMPRESSION: Stable cardiomegaly and central vascular congestion. Low inspiratory effort with bronchovascular crowding and basilar atelectasis. D/ / Javan Mott / Javan Mott Interpreting Provider: Javan Mott - EKG Data EKG #1 EKG attestation: Yes I reviewed and interpreted this EKG. EKG results narrative: Atrial fibrillation at a rate 83. PA interval is not measured. QRS duration is 110. QT is 386. QTC is 454. Patient does have low amplitude. There are no significant changes from previous EKG dated 11/11/2017. No signs of acute ischemia. Attestation Statement - Attestation Attestation: I, Reginald Lara DO, examined this patient [id number] and my medical decision-making was reviewed with Dr. Maribeth Steven, Resident Physician. I agree with the documented findings, disposition and treatment plan as described except to the extent set forth below. Please see my progress notes for details.
[2018-02-05 22:30] LABS: Basophils % 0.6 %; Eosinophils # 0.1 K/mcL (0.0-0.6); Eosinophils % 1.2 %; Hematocrit 28.4 % (37.5-50.1); Hemoglobin 8.3 g/dL (12.9-16.9); Immature Granulocytes % 0.5 % (0-4); Lymphocytes # 0.5 K/mcL (0.6-4.6); Lymphocytes % 8.1 %; Mean Corpuscular HGB Conc 29.2 g/dL (31.6-35.5); Mean Corpuscular Hemoglobin 23.2 pg (28.0-33.3); Mean Corpuscular Volume 79.3 fL (83.0-100.0); Mean Platelet Volume 9.7 fL (9.4-12.4); Monocytes # 0.9 K/mcL (0.0-1.3); Monocytes % 13.8 %; Platelet Count 300 K/mcL (140-400); Red Blood Count 3.58 M/mcL (4.19-5.50); Red Cell Distribution Width 18.9 % (11.5-14.5); Segmented Neutrophils % 75.8 %
[2018-02-05 22:38] LABS: INR 1.8
[2018-02-05 22:46] LABS: Alanine Aminotransferase 10 Units/L (7-52); Albumin 3.6 g/dL (3.5-5.7); Alkaline Phosphatase 131 Units/L (34-104); Aspartate Amino Transferase 20 Units/L (13-39); BUN/Creatinine Ratio 29 (6-26); Bilirubin,Direct 0.4 mg/dL (0.0-0.2); Bilirubin,Indirect 0.7 mg/dL (0.0-1.2); Bilirubin,Total 1.1 mg/dL (0.3-1.0); Blood Urea Nitrogen 23 mg/dL (8-23); Calcium 9.3 mg/dL (8.6-10.3); Carbon Dioxide 20 mEq/L (23-29); Chloride 104 mEq/L (98-107); Globulin 3.7 g/dL (2.4-3.5); Glucose 112 mg/dL (70-105); Lipase 16 Units/L (11-82); Osmolality,Calculated 274 (280-300); Potassium 5.5 mEq/L (3.5-5.1); Sodium 130 mEq/L (136-145); Total Protein 7.3 g/dL (6.4-8.9); eGFR For Non-African Americans > 60 (> 60)
--- NOTE | 2018-02-05 22:49 | Emergency Department Note ---
Disposition Clinical Impression: Cirrhosis of liver, Ascites, Hyperkalemia Disposition: Admitted As Inpatient Condition: Fair General Adult HPI - General Chief complaint: ED Shortness of Breath/Dyspnea Stated complaint: swelling Time Seen by Provider: 02/05/18 21:53 Source: EMS Limitations: no limitations - History of Present Illness Pain Scale: 0 - Related Data Home Medications Medication Instructions Recorded Confirmed Furosemide [Lasix] 80 mg PO DAILY 11/09/17 01/15/18 Potassium Chloride [Klor-Con 10] 20 meq PO DAILY 11/09/17 01/15/18 Pregabalin [Lyrica] 200 mg PO TID 11/09/17 01/15/18 Ferrous Sulfate [Iron] 325 mg PO DAILY 11/10/17 01/15/18 Previous Rx's Medication Instructions Recorded Allopurinol [Zyloprim 300 MG] 300 mg PO DAILY tablet 10/24/16 Digoxin [Lanoxin] 0.25 mg PO DAILY tablet 10/24/16 Levothyroxine [Synthroid] 50 mcg PO 0630 tablet 10/24/16 Diltiazem CD (24hr) [Cardizem CD] 120 mg PO QPM #30 cap.er.24h 11/13/17 Propranolol [Inderal] 20 mg PO BID #60 tablet 11/13/17 Spironolactone [Aldactone] 50 mg PO DAILY #30 tablet 11/13/17 Allergies Allergy/AdvReac Type Severity Reaction Status Date / Time tramadol AdvReac Itching Verified 01/15/18 16:18 Past Medical History - Past Medical History Medical history: Reports: atrial fibrillation, cirrhosis, COPD, DVT, hypertension, other Surgical history: Reports: herniorrhaphy, orthopedic, other, other Psychiatric history: Reports: no psych history - Social History Smoking Status: Former smoker Smokeless Tobacco Status: No Alcohol use: Reports: none, occasionally Drug use: Reports: none Physical Exam - General Limitations: no limitations General appearance: alert Course Vital Signs Temperature 98.3 F 02/05/18 21:54 Pulse Rate 70 02/05/18 21:54 Respiratory Rate 20 02/05/18 21:54 Blood Pressure 103/63 02/05/18 21:54 O2 Sat by Pulse Oximetry 100 02/05/18 21:54 Temperature 98.3 F 02/05/18 21:54 Pulse Rate 77 02/05/18 23:55 Respiratory Rate 20 02/05/18 23:55 Blood Pressure 109/64 02/05/18 23:55 O2 Sat by Pulse Oximetry 97 02/05/18 23:55 Oxygen Delivery Oxygen Delivery Room Air Medical Decision Making - Lab Data Result diagrams: 02/05/18 22:18 02/05/18 22:18 Lab Results 02/05/18 02/05/18 02/05/18 Range/Units 22:18 22:18 22:18 WBC 6.6 (4.3-11.1) K/mcL RBC 3.58 L (4.19-5.50) M/mcL Hgb 8.3 L (12.9-16.9) g/dL Hct 28.4 L (37.5-50.1) % MCV 79.3 L (83.0-100.0) fL MCH 23.2 L (28.0-33.3) pg MCHC 29.2 L (31.6-35.5) g/dL RDW 18.9 H (11.5-14.5) % Plt Count 300 (140-400) K/mcL MPV 9.7 (9.4-12.4) fL Immature Gran % 0.5 (0-4) % Seg Neutrophils % 75.8 % Lymphocytes % 8.1 % Monocytes % 13.8 % Eosinophils % 1.2 % Basophils % 0.6 % Neutrophils # 5.0 (1.6-8.9) K/mcL Lymphocytes # 0.5 L (0.6-4.6) K/mcL Monocytes # 0.9 (0.0-1.3) K/mcL Eosinophils # 0.1 (0.0-0.6) K/mcL Basophils # 0.0 (0.0-0.2) K/mcL PT 20.0 H (9.4-12.1) Seconds INR 1.8 Sodium 130 L (136-145) mEq/L Potassium 5.5 H (3.5-5.1) mEq/L Chloride 104 (98-107) mEq/L Carbon Dioxide 20 L (23-29) mEq/L BUN 23 (8-23) mg/dL Creatinine 0.78 (0.70-1.30) mg/dL Est GFR ( Amer) > 60 (> 60) Est GFR (Non-Af Amer) > 60 (> 60) BUN/Creatinine Ratio 29 H (6-26) Glucose 112 H (70-105) mg/dL Calculated Osmolality 274 L (280-300) Lactic Acid (0.5-2.2) mmol/L Calcium 9.3 (8.6-10.3) mg/dL Total Bilirubin 1.1 H (0.3-1.0) mg/dL Direct Bilirubin 0.4 H (0.0-0.2) mg/dL Indirect Bilirubin 0.7 (0.0-1.2) mg/dL AST 20 (13-39) Units/L ALT 10 (7-52) Units/L Alkaline Phosphatase 131 H (34-104) Units/L Ammonia (16-53) mcmol/L Serum Total Protein 7.3 (6.4-8.9) g/dL Albumin 3.6 (3.5-5.7) g/dL Globulin 3.7 H (2.4-3.5) g/dL Albumin/Globulin Ratio 1.0 L (1.1-2.2) Lipase 16 (11-82) Units/L Urine Color (Yellow) Urine Clarity (Clear) Urine pH (5.0-8.0) pH Units Ur Specific [place] (1.010-1.025) Urine Protein (Neg-Trace) mg/dL Urine Glucose (UA) (Normal) mg/dL Urine Ketones (Negative) mg/dL Urine Blood (Negative) Urine Nitrite (Negative) Urine Bilirubin (Negative) Urine Urobilinogen (Normal) mg/dL Ur Leukocyte Esterase (Negative) Ur Culture Indicated? (NO) 02/05/18 02/05/18 02/05/18 Range/Units 22:18 22:41 22:53 WBC (4.3-11.1) K/mcL RBC (4.19-5.50) M/mcL Hgb (12.9-16.9) g/dL Hct (37.5-50.1) % MCV (83.0-100.0) fL MCH (28.0-33.3) pg MCHC (31.6-35.5) g/dL RDW (11.5-14.5) % Plt Count (140-400) K/mcL MPV (9.4-12.4) fL Immature Gran % (0-4) % Seg Neutrophils % % Lymphocytes % % Monocytes % % Eosinophils % % Basophils % % Neutrophils # (1.6-8.9) K/mcL Lymphocytes # (0.6-4.6) K/mcL Monocytes # (0.0-1.3) K/mcL Eosinophils # (0.0-0.6) K/mcL Basophils # (0.0-0.2) K/mcL PT (9.4-12.1) Seconds INR Sodium (136-145) mEq/L Potassium (3.5-5.1) mEq/L Chloride (98-107) mEq/L Carbon Dioxide (23-29) mEq/L BUN (8-23) mg/dL Creatinine (0.70-1.30) mg/dL Est GFR ( Amer) (> 60) Est GFR (Non-Af Amer) (> 60) BUN/Creatinine Ratio (6-26) Glucose (70-105) mg/dL Calculated Osmolality (280-300) Lactic Acid 1.8 (0.5-2.2) mmol/L Calcium (8.6-10.3) mg/dL Total Bilirubin (0.3-1.0) mg/dL Direct Bilirubin (0.0-0.2) mg/dL Indirect Bilirubin (0.0-1.2) mg/dL AST (13-39) Units/L ALT (7-52) Units/L Alkaline Phosphatase (34-104) Units/L Ammonia 28 (16-53) mcmol/L Serum Total Protein (6.4-8.9) g/dL Albumin (3.5-5.7) g/dL Globulin (2.4-3.5) g/dL Albumin/Globulin Ratio (1.1-2.2) Lipase (11-82) Units/L Urine Color Yellow (Yellow) Urine Clarity Clear (Clear) Urine pH 6.0 (5.0-8.0) pH Units Ur Specific [place] 1.016 (1.010-1.025) Urine Protein Negative (Neg-Trace) mg/dL Urine Glucose (UA) Normal (Normal) mg/dL Urine Ketones Negative (Negative) mg/dL Urine Blood Negative (Negative) Urine Nitrite Negative (Negative) Urine Bilirubin Negative (Negative) Urine Urobilinogen Normal (Normal) mg/dL Ur Leukocyte Esterase Negative (Negative) Ur Culture Indicated? NO (NO) Attestation Statement - Attestation Attestation: I, Reginald Lara DO, examined this patient [id number] and my medical decision-making was reviewed with Dr. Maribeth Steven, Resident Physician. I agree with the documented findings, disposition and treatment plan as described except to the extent set forth below. Please see my progress notes for details. 63-year-old male presents emergency room for evaluation of abdominal pain. Patient has known liver cirrhosis. Over the last 3 weeks she has had 3 tabs for ascites buildup. He is describing difficulty with breathing and chest discomfort and pain secondary to the fluid building up in his abdomen. He is a stable paracentesis site on the left side of his abdomen at this time. Denies any fevers or chills denies any chest pain shortness of breath headache or vision change. Denies any nausea vomiting or diarrhea. No other complaints or issues noted this time. Patient is alert he is oriented he speaks in full sentences. He denies chest pain shortness of breath headache vision changes nausea vomiting or diarrhea. Patient is otherwise clinically stable. He does have significant anasarca across the lower extremities although evidence of the abdomen and chest wall. Patient has clear lungs with diminished breath sounds and difficulty with deep inspiration secondary the abdomen. Bowel sounds are present also 4 quadrants. There is no acute signs of redness swelling irritation or warmth to the paracentesis site at this time. Screening labs including CBC chemistry liver function testing ammonia level urinalysis will be collected along with imaging modality of the abdomen and consideration for possible admission versus paracentesis here this time. Disposition pending the full workup and treatment course. See detailed recommendation physical exam, medical intervention, medical decision-making and disposition in the resident physician's note. No other acute issues noted this time. 2325 Patient has what appears to be elevated potassium of 5.5. He also has known liver cirrhosis. His chest x-ray does shows pulmonary congestion appears to be stable in comparison old. Patient is describing still what appears to be mechanical shortness of breath secondary to the fluid accumulation is abdomen. There is concerned secondary to the persistence and progression of his anasarca and cirrhosis with ascites that there are will require more aggressive intervention provided the patient during the treatment course here in the hospital. Recommendation for admission was given secondary to the lecture light abnormalities as well as the progression of the symptoms and the most recent paracentesis. Hospitalist was informed. He requested ultrasound october completed. Bedside ultrasonography was utilized showing fluid accumulation in the abdomen consistent with ascites. Patient will be admitted for definitive management of hyperkalemia along with progression of liver failure and ascites. No other concerns or issues noted this time. Admission process will be completed
[2018-02-05] MEDS ORDERED: Insulin Human Regular 10 UNIT in 0.9 % Sodium Chloride 10 ML IV ONE (22:51)
[2018-02-05] MEDS ORDERED: *HR* Dextrose 50 % in Water (Syg) 50 ML SYRINGE IVP STA (22:51)
[2018-02-05 22:53] LABS: Bilirubin,Urine Negative (Negative); Blood,Urine Negative (Negative); Clarity,Urine Clear (Clear); Color,Urine Yellow (Yellow); Glucose,Urine (UA) Normal (Normal); Ketones,Urine Negative (Negative); Leukocyte Esterase,Urine Negative (Negative); Nitrite,Urine Negative (Negative); Protein,Urine Negative (Neg-Trace); Specific Gravity,Urine 1.016 (1.010-1.025); Urobilinogen,Urine Normal (Normal)
[2018-02-05] MEDS ORDERED: *HR* HYDROcodone/Acet 5/325 mg TABLET PO ONE (23:50)
[2018-02-06] MEDS ORDERED: OXYCODONE Oral CONC 10 MG/0.5 ML ORAL.SYG SL PRN (03:52)
[2018-02-06] MEDS ORDERED: Naloxone 0.4 MG/ML INJ IVP PRN (04:15)
[2018-02-06 05:06] LABS: Hematocrit 25.6 % (37.5-50.1); Hemoglobin 7.6 g/dL (12.9-16.9); Mean Corpuscular HGB Conc 29.7 g/dL (31.6-35.5); Mean Corpuscular Hemoglobin 23.2 pg (28.0-33.3); Mean Corpuscular Volume 78.3 fL (83.0-100.0); Mean Platelet Volume 9.8 fL (9.4-12.4); Platelet Count 254 K/mcL (140-400); Red Blood Count 3.27 M/mcL (4.19-5.50)
--- NOTE | 2018-02-06 05:27 | Internal Med History&Physical ---
Date of Encounter: 02/11/18 Time of Encounter: 05:00 Internal Medicine - H&P: HPI Chief complaint: Abdominal Distension History of present illness: Mr. Lomeli is a 63 year old male with past medical history of liver cirrhosis with ascites, COPD, atrial fibrillation, and hypertension who presents with worsening abdominal distention. Patient had several paracentesis procedures performed, the last of which was 2 days ago for ascites buildup. Patient returns today stating that he feels he has reaccumulated fluid within his abdomen and is complaining of pain and distention. Of note, ED reports that the patient was complaining of dyspnea, however patient states that is what his is reporting however, he is not having any difficulty breathing since his last procedure and that his breathing is actually improved but, is reporting pain and distention rather in the abdomen. Patient denies any fever, chills, chest pain or shortness of breath. Patient will be admitted for observation. Past Med Surg Social Fam HX - Past Medical History Medical history: atrial fibrillation, cirrhosis, COPD, DVT, hypertension, other Additional medical history: Gout Psychiatric history: no psych history - Past Surgical History Surgical History: herniorrhaphy, orthopedic, other, other Additional surgical history: cirrhosis - Social History Smoking Status: Former smoker Smokeless Tobacco Status: No Alcohol use: none, occasionally Drug use: none - Family History Father Hx Family Endocrine Disorder: Yes Internal Medicine - H&P: Meds Allopurinol [Zyloprim 300 MG] 300 mg PO DAILY tablet 10/24/16 [Rx] Digoxin [Lanoxin] 0.25 mg PO DAILY tablet 10/24/16 [Rx] Levothyroxine [Synthroid] 50 mcg PO 0630 tablet 10/24/16 [Rx] Pregabalin [Lyrica] 200 mg PO TID 11/09/17 [History] Ferrous Sulfate [Iron] 325 mg PO DAILY 11/10/17 [History] Diltiazem CD (24hr) [Cardizem CD] 120 mg PO QPM #30 cap.er.24h 11/13/17 [Rx] Propranolol [Inderal] 20 mg PO BID #60 tablet 11/13/17 [Rx] Furosemide [Lasix] 40 mg PO DAILY 02/06/18 [History] Spironolactone [Aldactone] 200 mg PO DAILY 02/06/18 [History] Tiotropium [place] [Spiriva Respimat] 2 puff IH DAILY 02/06/18 [History] Warfarin Sodium 4 mg PO DAILY 02/06/18 [History] Cefdinir [Omnicef] 300 mg PO DAILY #2 capsule 02/08/18 [Rx] HYDROcodone/Acet 10/325 mg [[place] 10-325 mg] 1 tab PO Q8HR PRN 2 Days #6 tab [Rx] 3 Allergy/AdvReac Type Severity Reaction Status Date / Time tramadol AdvReac Itching Verified 01/15/18 16:18 All Systems PM: A 10-system review of systems was performed and is negative for pertinent findings except as documented above in the HPI. - Constitutional Constitutional: no chills, no fever(s), no night sweats - EENT Eyes: no change in vision, no discharge, no pain, no photophobia Ears: no ear discharge, no ear pain, no tinnitus Nose, mouth and throat: no dysphagia, no nasal discharge, no neck pain, no sore throat - Cardiovascular Cardiovascular ROS IM: no chest pain, no diaphoresis, no dyspnea, no lightheadedness, no palpitations, no syncope - Respiratory Respiratory: no cough, no dyspnea, no wheezing, no excessive phlegm production - Gastrointestinal Gastrointestinal: no abdominal pain, no diarrhea, no hematemesis, no hematochezia, no melena, no nausea, no vomiting - Musculoskeletal Musculoskeletal ROS IM: no numbness, no tingling - Integumentary Integumentary IM: no rash, no unusual bruising - Neurological Neurological ROS: no confusion, no convulsions, no focal weakness, no numbness, no tingling, no tremor(s) - Hematologic/Lymphatic Hematologic/Lymphatic: no easy bruising - Constitutional Vitals: Temp Pulse Resp BP Pulse Ox 97.9 F 70 14 99/58 98 02/06/18 03:54 02/06/18 03:54 02/06/18 03:54 02/06/18 03:54 02/06/18 03:54 Exam: General: Alert and oriented 3 Skin:Normal color, no rash, no lesions. HEENT:EOM, pupils equal, round and reactive. Cardiovascular:Normal S1 & S2, no rubs, murmurs or gallops. No JVD. Pulse regular. Lungs:Normal breath sounds, no wheezes or crackles. Abdomen:Soft, abdomen large and distended; positive fluid wave, no rebound or guarding with mild tenderness to palpation in the epigastric and left upper quadrant. no rigidity. Extremities:No deformity, no edema or tenderness, no joint swelling or clubbing. Neurological:Normal cognition and motor skills. Pulses:Carotid and radial pulses normal +2. Rest of the physical exam is non contributory Internal Med - H&P Results - Labs CBC & Chem 7: 02/08/18 04:16 02/08/18 04:16 Labs: Short CBC 02/06/18 Range/Units 04:51 WBC 5.7 (4.3-11.1) K/mcL Hgb 7.6 L (12.9-16.9) g/dL Hct 25.6 L (37.5-50.1) % Plt Count 254 (140-400) K/mcL - Assessment and plan (1) Ascites Status: Acute Assessment and plan: Abdominal ascites in the setting of liver cirrhosis status post recent paracentesis. Patient appears to be distended once again. Very low suspicion for spontaneous bacterial peritonitis as patient does not have even a low-grade fever or elevated white count. Nevertheless we will place order for paracentesis with cell count. Consider GI consult. Patient's home medications and doses have not been verified. We will resume Lasix and spironolactone once verified. Qualifiers: Ascites type: due to alcoholic cirrhosis Qualified Code(s): K70.31 - Alcoholic cirrhosis of liver with ascites (2) Hyperkalemia Status: Acute Assessment and plan: Repeat potassium shows correction from 5.5 to 4.9. We will monitor. Patient reportedly taking potassium supplementation. We will hold for now and verify patient's home meds. (3) Atrial fibrillation Status: Chronic Qualifiers: Atrial fibrillation type: chronic Qualified Code(s): I48.2 - Chronic atrial fibrillation (4) Hyponatremia Status: Acute Assessment and plan: Mild Hyponatremia (130) likely chronic in the setting of liver cirrhosis. Patient currently asymptomatic. We will trend for now - Time Spent With Patient Total time spent is greater than 50% in coordination of care (as documented) at patient's floor/unit and/or counseling patient:
[2018-02-06 05:29] LABS: Alanine Aminotransferase 8 Units/L (7-52); Albumin 3.3 g/dL (3.5-5.7); Alkaline Phosphatase 122 Units/L (34-104); Aspartate Amino Transferase 18 Units/L (13-39); BUN/Creatinine Ratio 32 (6-26); Bilirubin,Total 1.4 mg/dL (0.3-1.0); Blood Urea Nitrogen 23 mg/dL (8-23); Calcium 9.1 mg/dL (8.6-10.3); Carbon Dioxide 18 mEq/L (23-29); Chloride 107 mEq/L (98-107); Globulin 3.4 g/dL (2.4-3.5); Glucose 111 mg/dL (70-105); Osmolality,Calculated 276 (280-300); Potassium 4.9 mEq/L (3.5-5.1); Sodium 131 mEq/L (136-145); Total Protein 6.7 g/dL (6.4-8.9); eGFR For Non-African Americans > 60 (> 60)
[2018-02-06] MEDS ORDERED: OXYCODONE Oral CONC 10 MG/0.5 ML ORAL.SYG SL ONE (05:36)
[2018-02-06] MEDS: OXYCODONE Oral CONC 10 MG/0.5 ML ORAL.SYG SL PRN ×3 (07:46→21:34)
[2018-02-06] MEDS: *HR* Digoxin 0.25 MG TABLET PO SCH (09:16)
[2018-02-06] MEDS: Furosemide 40 MG TABLET PO SCH (09:16)
--- NOTE | 2018-02-06 10:48 | Internal Med Progress Note ---
<BrennanMathieut W - Last Filed: 02/06/18 13:36> Hospitalist Progress Note - Encounter Date of Encounter: 02/06/18 Time of Encounter: 10:45 - Subjective Interval History: MR Lomeli is a 63 yo male with a PMH Saturdays, COPD, atrial fibrillation, and hypertension who presents with worsening abdominal distention. Patient most recently had paracentesis performed 2 days ago for ascites fluid buildup. He returned because he feels the fluid has reaccumulated in his abdomen He is in pain and distended. Patient reports significant tenderness in his abdomen most severely in the left upper quadrant. Sublingual morphine is not controlling his pain very well. Patient denies shortness of breath except for the inability to take a deep breath because he feels like fluids pressure on his diaphragm. Denies chest pain, headache, dizziness, nausea admission, diarrhea. Patient is passing gas and was last bowel movement was last night. - Exam Vitals: Temp Pulse Resp BP Pulse Ox 98.5 F 74 14 99/64 97 02/06/18 10:16 02/06/18 10:16 02/06/18 10:16 02/06/18 10:16 02/06/18 10:16 Exam: General: Alert and oriented 3 Skin:Normal color, no rash, no lesions. HEENT:EOM, pupils equal, round and reactive. Each manic normocephalic Cardiovascular:Normal S1 & S2, no rubs, murmurs or gallops. JVD. Pulse regular. Lungs:Normal breath sounds, no wheezes or crackles. Abdomen:Soft, abdomen large and distended; positive fluid wave, no rebound or guarding with mild tenderness to palpation in the epigastric and left upper quadrant. no rigidity. Extremities:No deformity, no edema or tenderness, no joint swelling or clubbing. Neurological:Normal cognition and motor skills. Pulses:Carotid and radial pulses normal +2. Rest of the physical exam is non contributory - Assessment and Plan (1) Ascites Current Visit: Yes Status: Acute Assessment and Plan: Abdominal ascites in the setting of liver cirrhosis status post recent paracentesis. Patient appears to be distended once again. Very low suspicion for spontaneous bacterial peritonitis as patient does not have even a low-grade fever or elevated white count. Plan - Paracentesis performed, will send cor cultures and cell count - Resume Lasix and spironolactone (2) Hyperkalemia Current Visit: Yes Status: Acute Assessment and Plan: Repeat potassium shows correction from 5.5 to 4.9. Patient reportedly taking potassium supplementation. will hold for now. (3) Atrial fibrillation Current Visit: No Status: Chronic Assessment and Plan: History of A Fib Controlled (4) Hyponatremia Current Visit: Yes Status: Acute Assessment and Plan: Mild Hyponatremia (13a) likely chronic in the setting of liver cirrhosis. Patient currently asymptomatic. We will trend for now - Time Spent with Patient Total time spent is greater than 50% in coordination of care (as documented) at patient's floor/unit and/or counseling patient: Internal Medicine: Result - Labs CBC & Chem 7: 02/06/18 04:51 02/06/18 04:51 Labs: Short CBC 02/06/18 Range/Units 04:51 WBC 5.7 (4.3-11.1) K/mcL Hgb 7.6 L (12.9-16.9) g/dL Hct 25.6 L (37.5-50.1) % Plt Count 254 (140-400) K/mcL BMP 02/06/18 04:51 Sodium 131 L Potassium 4.9 Chloride 107 Carbon Dioxide 18 L BUN 23 Creatinine 0.72 Glucose 111 H Calcium 9.1 Liver Function 02/06/18 Range/Units 04:51 Total Bilirubin 1.4 H (0.3-1.0) mg/dL AST 18 (13-39) Units/L ALT 8 (7-52) Units/L Alkaline Phosphatase 122 H (34-104) Units/L Albumin 3.3 L (3.5-5.7) g/dL - ABG Interpretation ABG results: PT/INR, D-dimer PT 20.0 Seconds (9.4-12.1) H 02/05/18 22:18 Consult Discharge Plan - Plan Referrals: Sendy Quan, TYRON [Primary Care Provider] - <Hitesh Araiza - Last Filed: 02/06/18 14:33> Hospitalist Progress Note - Encounter Date of Encounter: 02/06/18 - Exam Vitals: Temp Pulse Resp BP Pulse Ox 98.1 F 70 14 106/87 96 02/06/18 13:56 02/06/18 13:56 02/06/18 13:56 02/06/18 13:56 02/06/18 13:56 - Assessment and Plan (1) Atrial fibrillation Current Visit: No Status: Chronic (2) Ascites Current Visit: Yes Status: Acute (3) Hyperkalemia Current Visit: Yes Status: Acute (4) Hyponatremia Current Visit: Yes Status: Acute - Time Spent with Patient Total time spent is greater than 50% in coordination of care (as documented) at patient's floor/unit and/or counseling patient: Internal Medicine: Result - Labs CBC & Chem 7: 02/06/18 04:51 02/06/18 04:51 Labs: Short CBC 02/06/18 Range/Units 04:51 WBC 5.7 (4.3-11.1) K/mcL Hgb 7.6 L (12.9-16.9) g/dL Hct 25.6 L (37.5-50.1) % Plt Count 254 (140-400) K/mcL BMP 02/06/18 04:51 Sodium 131 L Potassium 4.9 Chloride 107 Carbon Dioxide 18 L BUN 23 Creatinine 0.72 Glucose 111 H Calcium 9.1 Liver Function 02/06/18 Range/Units 04:51 Total Bilirubin 1.4 H (0.3-1.0) mg/dL AST 18 (13-39) Units/L ALT 8 (7-52) Units/L Alkaline Phosphatase 122 H (34-104) Units/L Albumin 3.3 L (3.5-5.7) g/dL - ABG Interpretation ABG results: PT/INR, D-dimer PT 20.0 Seconds (9.4-12.1) H 02/05/18 22:18 - Attending Attestation I have personally seen and examined this patient on 02/06/18 and reviewed her chart and labs, including medications, I have discussed plan of care with the resident physician, whose documentation reflect our plan of care. With the additions/exceptions set forth below. Liver cirrhosis, decompensated with ascites Start ceftazidime, paracentensis terminated after about 500 cc fluid removal due to problem with collecting system, sent for cell count and culture Continue home meds and pain control IR for paracentensis a.m patient is not septic nor in rsp distress rest as in resident physician's documentation <Glenroy Amin W - Last Filed: 02/06/18 13:36> (1) Ascites Qualifiers: Ascites type: due to alcoholic cirrhosis Qualified Code(s): K70.31 - Alcoholic cirrhosis of liver with ascites (3) Atrial fibrillation Qualifiers: Atrial fibrillation type: chronic Qualified Code(s): I48.2 - Chronic atrial fibrillation <Hitesh Araiza T - Last Filed: 02/06/18 14:33> (1) Atrial fibrillation Qualifiers: Atrial fibrillation type: chronic Qualified Code(s): I48.2 - Chronic atrial fibrillation (2) Ascites Qualifiers: Ascites type: due to alcoholic cirrhosis Qualified Code(s): K70.31 - Alcoholic cirrhosis of liver with ascites
[2018-02-06] MEDS ORDERED: Acetaminophen 325 MG TABLET PO PRN (14:21)
--- NOTE | 2018-02-06 14:30 | Procedure Note ---
Date of procedure: 02/06/18 Pre-op diagnosis: Ascites Post-op diagnosis: same Procedure: Patient positioned supine. Abdomen examined with ultrasound for appropriate site placement. Site marked and prepared with chlorhexidine. Site draped with sterile dressing. Wheel of lidocaine placed. Lidocaine then introduced deep to the peritoneum. SParacentesis needle was placed through the skin into the abdominal cavity. There was free flow of ascitis fluid, clear, however, there was a problem with the collecting system and procedure was terminated after about 500cc was removed. Sample sent for cell count and culture The needle was withdrawn and the site cleaned and bandaged Anesthesia: local Was there an bookkeeper assistant present: Yes Boiler Installer: Glenroy Amin Estimated blood loss (cc): 0 Specimen: Not applicable Pathology: none sent Condition: stable Disposition: floor
[2018-02-06] MEDS ORDERED: MORPHINE SUL Oral CONC 10 MG/0.5 ML ORAL.SYG SL ONE (16:35)
[2018-02-06] MEDS: cefTAZidime 2,000 MG in Water for inj. (sterile) 20 ML 20 ML IVP SCH (17:27)
[2018-02-06] MEDS: Diltiazem CD (24hr) 120 MG CAPSULE PO SCH (17:27)
[2018-02-06] MEDS: Pregabalin 50 MG CAPSULE PO SCH (20:46)
[2018-02-06] MEDS ORDERED: *HR* OxyCODONE Immed Rel 5 MG TABLET PO ONE (23:52)
[2018-02-07] MEDS: cefTAZidime 2,000 MG in Water for inj. (sterile) 20 ML 20 ML IVP SCH ×3 (00:19→17:53)
[2018-02-07] MEDS: OXYCODONE Oral CONC 10 MG/0.5 ML ORAL.SYG SL PRN ×3 (05:23→17:53)
[2018-02-07 07:30] LABS: Basophils % 0.5 %; Eosinophils # 0.2 K/mcL (0.0-0.6); Hematocrit 29.7 % (37.5-50.1); Hemoglobin 8.6 g/dL (12.9-16.9); Immature Granulocytes % 0.5 % (0-4); Lymphocytes # 0.6 K/mcL (0.6-4.6); Lymphocytes % 7.7 %; Mean Corpuscular Hemoglobin 23.4 pg (28.0-33.3); Mean Corpuscular Volume 80.7 fL (83.0-100.0); Monocytes # 1.1 K/mcL (0.0-1.3); Monocytes % 14.2 %; Neutrophils # 5.6 K/mcL (1.6-8.9); Platelet Count 295 K/mcL (140-400); Red Blood Count 3.68 M/mcL (4.19-5.50); Red Cell Distribution Width 18.9 % (11.5-14.5); Segmented Neutrophils % 75.1 %
[2018-02-07 07:35] LABS: INR 1.6; Prothrombin Time 18.5 Seconds (9.4-12.1)
[2018-02-07 07:57] LABS: BUN/Creatinine Ratio 28 (6-26); Blood Urea Nitrogen 22 mg/dL (8-23); Carbon Dioxide 17 mEq/L (23-29); Chloride 102 mEq/L (98-107); Glucose 109 mg/dL (70-105); Osmolality,Calculated 268 (280-300); Potassium 5.3 mEq/L (3.5-5.1); Sodium 127 mEq/L (136-145); eGFR For Non-African Americans > 60 (> 60)
[2018-02-07] MEDS: Furosemide 40 MG TABLET PO SCH (08:53)
[2018-02-07] MEDS: Pregabalin 50 MG CAPSULE PO SCH ×3 (08:53→21:55)
[2018-02-07] MEDS: *HR* Digoxin 0.25 MG TABLET PO SCH (08:54)
--- NOTE | 2018-02-07 13:08 | Internal Med Progress Note ---
<Mathieu Amint W - Last Filed: 02/07/18 13:14> Hospitalist Progress Note - Encounter Date of Encounter: 02/07/18 Time of Encounter: 08:40 - Subjective Interval History: Mr. Lomeli is a 63 yo male with a PMH Saturdays, COPD, atrial fibrillation, and hypertension who presents with worsening abdominal distention. Today the patient reports no real changes. Patient still has significant abdominal pain mostly in left upper quadrant. Sublingual morphine controlling his pain very well. Paracentesis was performed yesterday however only 500 mL was obtained before tubing was pulled. Patient is currently requiring bandage changes due to leaking of fluid at paracentesis site. Bandaging is placed. Interventional radiology to see Thursday. Patient denies shortness of breath, chest pain, dizziness, nausea, vomiting, diarrhea. - Exam Vitals: Temp Pulse Resp BP Pulse Ox 98.3 F 79 14 106/69 97 02/07/18 10:24 02/07/18 10:24 02/07/18 10:24 02/07/18 10:24 02/07/18 10:24 Exam: General: Alert and oriented 3 Skin:Normal color, no rash, no lesions. HEENT:EOM, pupils equal, round and reactive. Each manic normocephalic Cardiovascular:Normal S1 & S2, no rubs, murmurs or gallops. JVD. Pulse regular. Lungs:Normal breath sounds, no wheezes or crackles. Abdomen:Soft, abdomen large and distended; positive fluid wave, no rebound or guarding with mild tenderness to palpation in the epigastric and left upper quadrant. no rigidity. Extremities:No deformity, no edema or tenderness, no joint swelling or clubbing. Neurological:Normal cognition and motor skills. Rest of the physical exam is non contributory - Assessment and Plan (1) Ascites Current Visit: Yes Status: Acute Assessment and Plan: Abdominal ascites in the setting of liver cirrhosis status post recent paracentesis. Paracentesis was performed yesterday. 500 mL of fluid was taken after which tubing was pulled doing complications of the tubing. Ceftazidime was added yesterday Very low suspicion for spontaneous bacterial peritonitis as patient does not have even a low-grade fever or elevated white count. IR consulted appreciate recs Plan - Paracentesis performed, will send cor cultures and cell count - Continue Ceftazidime day 2 - Resume Lasix and spironolactone (2) Hyperkalemia Current Visit: Yes Status: Acute Assessment and Plan: Current potassium is 5.3. Patient reportedly taking potassium supplementation. will hold for now. Kayexylate 15 mg given Will continue to monitor Code(s): E87.5 - Hyperkalemia (3) Atrial fibrillation Current Visit: No Status: Chronic Assessment and Plan: History of A Fib Controlled with BB (4) Hyponatremia Current Visit: Yes Status: Acute Assessment and Plan: Mild Hyponatremia (127) likely chronic in the setting of liver cirrhosis. Patient currently asymptomatic. We will trend for now - Time Spent with Patient Total time spent is greater than 50% in coordination of care (as documented) at patient's floor/unit and/or counseling patient: Internal Medicine: Result - Labs CBC & Chem 7: 02/07/18 06:56 02/07/18 06:56 Labs: Short CBC 02/07/18 Range/Units 06:56 WBC 7.4 (4.3-11.1) K/mcL Hgb 8.6 L (12.9-16.9) g/dL Hct 29.7 L (37.5-50.1) % Plt Count 295 (140-400) K/mcL Neutrophils # 5.6 (1.6-8.9) K/mcL BMP 02/07/18 06:56 Sodium 127 L Potassium 5.3 H Chloride 102 Carbon Dioxide 17 L BUN 22 Creatinine 0.80 Glucose 109 H Calcium 9.0 - ABG Interpretation ABG results: PT/INR, D-dimer PT 18.5 Seconds (9.4-12.1) H 02/07/18 06:56 - Impressions Impressions Abdomen/Pelvis CT 02/06/18 16:34 IMPRESSION: Cirrhosis, splenomegaly, and sequelae of portal hypertension. There is mild abdominal ascites, decreased compared to 01/15/2018. Multiple vascular collaterals are seen. D/ / Michael Wright MD / Michael Wright MD Interpreting Provider: Michael Wright MD Consult Discharge Plan - Plan Referrals: Sendy Quan, TYRON [Primary Care Provider] - <Hitesh Araiza T - Last Filed: 02/07/18 13:32> Hospitalist Progress Note - Encounter Date of Encounter: 02/07/18 - Exam Vitals: Temp Pulse Resp BP Pulse Ox 98.3 F 79 14 106/69 97 02/07/18 10:24 02/07/18 10:24 02/07/18 10:24 02/07/18 10:24 02/07/18 10:24 - Assessment and Plan (1) Atrial fibrillation Current Visit: No Status: Chronic (2) Ascites Current Visit: Yes Status: Acute (3) Hyperkalemia Current Visit: Yes Status: Acute Code(s): E87.5 - Hyperkalemia (4) Hyponatremia Current Visit: Yes Status: Acute - Time Spent with Patient Total time spent is greater than 50% in coordination of care (as documented) at patient's floor/unit and/or counseling patient: Internal Medicine: Result - Labs CBC & Chem 7: 02/07/18 06:56 02/07/18 06:56 Labs: Short CBC 02/07/18 Range/Units 06:56 WBC 7.4 (4.3-11.1) K/mcL Hgb 8.6 L (12.9-16.9) g/dL Hct 29.7 L (37.5-50.1) % Plt Count 295 (140-400) K/mcL Neutrophils # 5.6 (1.6-8.9) K/mcL BMP 02/07/18 06:56 Sodium 127 L Potassium 5.3 H Chloride 102 Carbon Dioxide 17 L BUN 22 Creatinine 0.80 Glucose 109 H Calcium 9.0 - ABG Interpretation ABG results: PT/INR, D-dimer PT 18.5 Seconds (9.4-12.1) H 02/07/18 06:56 - Impressions Impressions Abdomen/Pelvis CT 02/06/18 16:34 IMPRESSION: Cirrhosis, splenomegaly, and sequelae of portal hypertension. There is mild abdominal ascites, decreased compared to 01/15/2018. Multiple vascular collaterals are seen. D/ / Michael Wright MD / Michael Wright MD Interpreting Provider: Michael Wright MD - Attending Attestation I have personally seen and examined this patient on 02/07/18 and reviewed her chart and labs, including medications, I have discussed plan of care with the resident physician, whose documentation reflect our plan of care. With the additions/exceptions set forth below. No new complains Abd T unremrakble Paracentensis site continues to drain Exam shows mildy distended abdomen, chronic venous stasis changes, chest is claer, neuro exam with no deficits Labs and Imaging reviewed Plan is to Resume Coumadin, IR eval a.m Continue other care, rest of details as in the resident physician's documentation <Glenroy Amin W - Last Filed: 02/07/18 13:14> (1) Ascites Qualifiers: Ascites type: due to alcoholic cirrhosis Qualified Code(s): K70.31 - Alcoholic cirrhosis of liver with ascites (3) Atrial fibrillation Qualifiers: Atrial fibrillation type: chronic Qualified Code(s): I48.2 - Chronic atrial fibrillation <Hitesh Araiza T - Last Filed: 02/07/18 13:32> (1) Atrial fibrillation Qualifiers: Atrial fibrillation type: chronic Qualified Code(s): I48.2 - Chronic atrial fibrillation (2) Ascites Qualifiers: Ascites type: due to alcoholic cirrhosis Qualified Code(s): K70.31 - Alcoholic cirrhosis of liver with ascites
[2018-02-07] MEDS: Diltiazem CD (24hr) 120 MG CAPSULE PO SCH (17:53)
[2018-02-07] MEDS ORDERED: *HR* Warfarin 4 MG TABLET PO SCH (18:00)
[2018-02-08] MEDS: cefTAZidime 2,000 MG in Water for inj. (sterile) 20 ML 20 ML IVP SCH ×2 (01:42→09:58)
[2018-02-08] MEDS: OXYCODONE Oral CONC 10 MG/0.5 ML ORAL.SYG SL PRN ×2 (01:46→09:58)
[2018-02-08 04:57] LABS: Basophils % 0.4 %; Eosinophils # 0.1 K/mcL (0.0-0.6); Hematocrit 26.1 % (37.5-50.1); Hemoglobin 7.7 g/dL (12.9-16.9); Immature Granulocytes % 0.6 % (0-4); Lymphocytes # 0.5 K/mcL (0.6-4.6); Lymphocytes % 6.3 %; Mean Corpuscular HGB Conc 29.5 g/dL (31.6-35.5); Mean Corpuscular Hemoglobin 23.2 pg (28.0-33.3); Mean Corpuscular Volume 78.6 fL (83.0-100.0); Mean Platelet Volume 10.4 fL (9.4-12.4); Monocytes # 1.3 K/mcL (0.0-1.3); Neutrophils # 6.2 K/mcL (1.6-8.9); Platelet Count 260 K/mcL (140-400); Red Blood Count 3.32 M/mcL (4.19-5.50); Red Cell Distribution Width 18.8 % (11.5-14.5); Segmented Neutrophils % 75.7 %
[2018-02-08 05:05] LABS: INR 1.7; Prothrombin Time 19.2 Seconds (9.4-12.1)
[2018-02-08 05:16] LABS: BUN/Creatinine Ratio 23 (6-26); Blood Urea Nitrogen 24 mg/dL (8-23); Calcium 8.6 mg/dL (8.6-10.3); Carbon Dioxide 20 mEq/L (23-29); Chloride 100 mEq/L (98-107); Glucose 153 mg/dL (70-105); Osmolality,Calculated 271 (280-300); Potassium 5.5 mEq/L (3.5-5.1); Sodium 127 mEq/L (136-145); eGFR For Non-African Americans > 60 (> 60)
--- NOTE | 2018-02-08 08:00 | Internal Med Progress Note ---
Hospitalist Progress Note - Encounter Date of Encounter: 02/08/18 Time of Encounter: 08:00 - Exam Vitals: Temp Pulse Resp BP Pulse Ox 98.5 F 83 14 111/67 95 02/08/18 07:06 02/08/18 07:06 02/08/18 07:06 02/08/18 07:06 02/08/18 07:06 - Time Spent with Patient Total time spent is greater than 50% in coordination of care (as documented) at patient's floor/unit and/or counseling patient: Internal Medicine: Result - Labs CBC & Chem 7: 02/08/18 04:16 02/08/18 04:16 Labs: Short CBC 02/08/18 Range/Units 04:16 WBC 8.2 (4.3-11.1) K/mcL Hgb 7.7 L (12.9-16.9) g/dL Hct 26.1 L (37.5-50.1) % Plt Count 260 (140-400) K/mcL Neutrophils # 6.2 (1.6-8.9) K/mcL BMP 02/08/18 04:16 Sodium 127 L Potassium 5.5 H Chloride 100 Carbon Dioxide 20 L BUN 24 H Creatinine 1.05 Glucose 153 H Calcium 8.6 - ABG Interpretation ABG results: PT/INR, D-dimer PT 19.2 Seconds (9.4-12.1) H 02/08/18 04:16 Consult Discharge Plan - Plan Referrals: Sendy Quan, [employer] [Primary Care Provider] -
[2018-02-08] MEDS: Pregabalin 50 MG CAPSULE PO SCH (09:57)
[2018-02-08] MEDS: *HR* Digoxin 0.25 MG TABLET PO SCH (09:57)
[2018-02-08] MEDS: Furosemide 40 MG TABLET PO SCH (09:57)
[2018-02-08 10:47] VITALS: BP 102/64
--- NOTE | 2018-02-08 12:06 | Discharge Summary ---
<Jessie Polo N - Last Filed: 02/08/18 13:29> - NOTES TO OUTPATIENT PROVIDER Notes to Outpatient Provider: Patient has been prescribed a 5-day course of antibiotics for treatment of possible bacterial peritonitis. Though suspicion for this diagnosis is very low, patient had persistent drainage of abdominal fluid from paracentesis site over several days, serving as a possible route of infection. Date of Encounter: 02/08/18 Time of Encounter: 12:06 - Discharge Diagnosis (1) Atrial fibrillation Priority: Secondary Status: Chronic Qualifiers: Atrial fibrillation type: chronic Qualified Code(s): I48.2 - Chronic atrial fibrillation (2) Ascites Priority: Primary Status: Acute Qualifiers: Ascites type: due to alcoholic cirrhosis Qualified Code(s): K70.31 - Alcoholic cirrhosis of liver with ascites (3) Hyperkalemia Priority: Secondary Status: Acute Code(s): E87.5 - Hyperkalemia (4) Hyponatremia Priority: Secondary Status: Acute Hospital course: Mr. Lomeli is a 63 year old male who presented to the ED complaining of worsening abdominal distension and accumulation of ascites. He reported several recent paracentesis procedures. Initial lab studies showed hyperkalemia, and patient was admitted for management of ascites and treatment of hyperkalemia. A bedside paracentesis was attempted; however, due to issues with vacumn tubing, only ~550 mL fluid was removed. Following that procedure, patient continued to have persistent leakage of clear yellow fluid from the puncture site. Repeat ultrasound showed no reaccumulation of fluid. Patient was given ceftazimide x 3 days and was discharged with omnicef 300mg x 2 days to complete a total 5-day course. Patient's hyperkalemia was improved with use of kayexylate and his oral potassium supplementation was discontinued. Discharge discussed with: patient - Time Spent with Patient Total time spent providing and/or coordinating discharge services: - Discharge Medications Prescriptions: HYDROcodone/Acet 10/325 mg [[place]ona 10-325 mg] 1 tab PO Q8HR PRN 2 Days #6 tab PRN Reason: Pain Cefdinir [Omnicef] 300 mg PO DAILY #2 capsule Home Medications: Allopurinol [Zyloprim 300 MG] 300 mg PO DAILY tablet 10/24/16 [Rx] Digoxin [Lanoxin] 0.25 mg PO DAILY tablet 10/24/16 [Rx] Levothyroxine [Synthroid] 50 mcg PO 0630 tablet 10/24/16 [Rx] Pregabalin [Lyrica] 200 mg PO TID 11/09/17 [History] Ferrous Sulfate [Iron] 325 mg PO DAILY 11/10/17 [History] Diltiazem CD (24hr) [Cardizem CD] 120 mg PO QPM #30 cap.er.24h 11/13/17 [Rx] Propranolol [Inderal] 20 mg PO BID #60 tablet 11/13/17 [Rx] Furosemide [Lasix] 40 mg PO DAILY 02/06/18 [History] Spironolactone [Aldactone] 200 mg PO DAILY 02/06/18 [History] Tiotropium [place] [Spiriva Respimat] 2 puff IH DAILY 02/06/18 [History] Warfarin Sodium 4 mg PO DAILY 02/06/18 [History] Cefdinir [Omnicef] 300 mg PO DAILY #2 capsule 02/08/18 [Rx] HYDROcodone/Acet 10/325 mg [[place] 10-325 mg] 1 tab PO Q8HR PRN 2 Days #6 tab [Rx] Allergies/Adverse Reactions: 3 Allergy/AdvReac Type Severity Reaction Status Date / Time tramadol AdvReac Itching Verified 01/15/18 16:18 Date of admission: 02/08/18 10:14 Primary care physician: Sendy Quan CNP Discharging clinician: Jessie Polo Anticipated date of discharge: 02/08/18 - Constitutional Vitals: Temp Pulse Resp BP Pulse Ox 99.0 F 63 15 102/64 95 02/08/18 10:45 02/08/18 10:45 02/08/18 10:45 02/08/18 10:45 02/08/18 10:45 Exam: * General: Pleasant elderly male in no acute distress. He is alert and oriented , and responds appropriately to questions. * HEENT: Atraumatic and normocephalic. * Cardiovascular: Irregularly irregular. S1 and S2 present. No murmurs, rubs, or gallops. * Respiratory: Decreased breath sounds bilaterally with mild expiratory wheezes present on the left. * Gastrointestinal: Bowel sounds present x 4 quadrants. Abdomen is soft and nontender, with no rebound or guarding. * Extremities: 1-2+ pitting edema in bilateral lower extremities with skin changes consistent with chronic venous stasis. Swelling improved vs yesterday, per patient. * Neurological: Patient moves all extremities spontaneously. No apparent focal deficits. - Patient Status Disposition: Home, Self-Care Condition: Fair Functional capacity at discharge: independent ambulation Overall status at discharge: patient is progressing back to baseline - Discharge Instructions Follow Up With: Yue Madrid CNP [Advanced Practice Nurse] - 02/12/18 10:00 am Additional Instructions: Take omnicef 300mg once daily tomorrow and Thursday. Have repeat BMP drawn Thursday. Follow up with your PCP in 3-5 days. Follow up with gastroenterology if you wish to discuss placement of long-term mechanism to drain ascitic fluid. Take norco 10mg Q8H as needed for pain. Return to the emergency department if you develop fever, chills, or signs of infection, or if new concerns arise. - Diet and Activity Activity: increase activity as tolerated Diet: advance to your usual diet <Hitesh Araiza - Last Filed: 02/08/18 16:15> Date of Encounter: 02/08/18 - Discharge Diagnosis (1) Atrial fibrillation Status: Chronic Qualifiers: Atrial fibrillation type: chronic Qualified Code(s): I48.2 - Chronic atrial fibrillation (2) Ascites Status: Acute Qualifiers: Ascites type: due to alcoholic cirrhosis Qualified Code(s): K70.31 - Alcoholic cirrhosis of liver with ascites (3) Hyperkalemia Status: Acute Code(s): E87.5 - Hyperkalemia (4) Hyponatremia Status: Acute Hospital course: Mr. Lomeli is a 63 year old male - Time Spent with Patient Total time spent providing and/or coordinating discharge services: Date of admission: 02/08/18 10:14 Primary care physician: Sendy Quan CNP - Constitutional Vitals: Temp Pulse Resp BP Pulse Ox 99.0 F 63 15 102/64 95 02/08/18 10:45 02/08/18 10:45 02/08/18 10:45 02/08/18 10:45 02/08/18 10:45 - Attending Attestation I have personally seen and examined this patient on 02/08/18 and reviewed her chart and labs, including medications, I have discussed plan of care with the resident physician, whose documentation reflect our plan of care. With the additions/exceptions set forth below. 63-year-old male with decompensated liver cirrhosis, chronic kidney disease, chronic hyponatremia chronic anemia, atrial fibrillation on warfarin. Placed on obs for hyperkalemia and ascites. Ascitic fluid drained with no evidence of ascites on ultrasound scan. Patient continued to seek pain medications while in the hospital. No objective reason for pain. Physical examination is unremarkable this morning. Labs at baseline except for hyperkalemia. Home potassium supplements held, Kayexalate given. Discharged in clinically stable condition to follow up with GI tomorrow, repeat chem on Thursday and follow-up with PCP. Rest of details as in resident physician's documentation
--- NOTE | 2018-02-08 17:44 | Electrocardiograph Report ---
[place] [id number] Test Date: 2018-02-05 Pat Name: Catarino Lomeli Department: EXAM5 Room: 3A56 Gender: M [employer]st: : 1955 Requested By: Janneth Steven Order Number: [id number] Reading MD: Ziggy Barlow Measurements Intervals [place] Rate: 83 P: PA: QRS: 108 QRSD: 110 T: 60 QT: 386 QTc: 454 Interpretive Statements Atrial fibrillation Right axis deviation Low voltage, extremity leads Electronically Signed On 02-08-2018 17:43:31 EDT by Ziggy Barlow
== END 2018-02-08 15:08 | disposition home or self-care (01) | DRG 433 ==
LOC: 3ANU 21:49 → EMEROOARM 21:49 → SUATTDRO 02-06 00:25 → 3ANU 02-06 00:56
PROVIDERS: ADMIT Internal Medicine; ATTEND Internal Medicine

== ENCOUNTER 2018-02-16 20:58 | Observation (INO) ==
--- NOTE | 2018-02-16 22:01 | Emergency Department Note ---
Disposition Clinical Impression: History of cirrhosis, Heart failure Dyspnea Qualifiers: Dyspnea type: unspecified Qualified Code(s): R06.00 - Dyspnea, unspecified Ascites Qualifiers: Ascites type: other type Qualified Code(s): R18.8 - Other ascites Disposition: Admitted As Inpatient Condition: Fair Time of Disposition: 23:57 Abdominal Pain HPI - General Chief Complaint: ED Abdominal Pain Stated Complaint: abd pain Time Seen by Provider: 02/16/18 21:26 Source: patient, EMS Mode of arrival: ambulatory Limitations: no limitations Nursing Notes Reviewed: Yes Vital Signs Reviewed: Yes - History of Present Illness HPI Narrative: I have re-performed and reviewed the history documented by the medical student, and I confirm its accuracy except as noted below Pain Scale: 10 - Related Data Home Medications Medication Instructions Recorded Confirmed Pregabalin [Lyrica] 200 mg PO TID 11/09/17 02/06/18 Ferrous Sulfate [Iron] 325 mg PO DAILY 11/10/17 02/06/18 Furosemide [Lasix] 40 mg PO DAILY 02/06/18 02/06/18 Spironolactone [Aldactone] 200 mg PO DAILY 02/06/18 02/06/18 Tiotropium [place] [Spiriva 2 puff IH DAILY 02/06/18 02/06/18 Respimat] Warfarin Sodium 4 mg PO DAILY 02/06/18 02/06/18 Previous Rx's Medication Instructions Recorded Allopurinol [Zyloprim 300 MG] 300 mg PO DAILY tablet 10/24/16 Digoxin [Lanoxin] 0.25 mg PO DAILY tablet 10/24/16 Levothyroxine [Synthroid] 50 mcg PO 0630 tablet 10/24/16 Diltiazem CD (24hr) [Cardizem CD] 120 mg PO QPM #30 cap.er.24h 11/13/17 Propranolol [Inderal] 20 mg PO BID #60 tablet 11/13/17 Cefdinir [Omnicef] 300 mg PO DAILY #2 capsule 02/08/18 HYDROcodone/Acet 10/325 mg [[place] 1 tab PO Q8HR PRN 2 Days #6 tab 02/08/18 10-325 mg] Allergies Allergy/AdvReac Type Severity Reaction Status Date / Time tramadol AdvReac Itching Verified 01/15/18 16:18 All systems ED: reviewed and negative except as stated. Constitutional: Denies: fever Cardiovascular: Denies: chest pain Respiratory: Denies: cough, dyspnea Gastrointestinal: Reports: abdominal pain. Denies: nausea, vomiting, diarrhea, constipation Genitourinary: Denies: urgency, dysuria, frequency, hematuria Integumentary: Denies: rash Neurological: Denies: headache, weakness, numbness, paresthesias Abdominal Pain PMH - Past Medical History Medical history: Reports: atrial fibrillation, cirrhosis, COPD, DVT, hypertension, other Male Surgical History: Reports: herniorrhaphy, knee replacement Psychiatric history: Reports: no psych history - Social History Smoking status: Former smoker Alcohol use: Reports: none, occasionally Drug use: Reports: none Physical Exam - General Limitations: no limitations General appearance: alert - Head Head exam: atraumatic, normocephalic, normal inspection - Eye Eye exam: Present: normal appearance, PERRL, EOMI - ENT ENT exam: normal exam, normal oropharynx, mucous membranes moist - Neck Neck exam: Present: normal inspection, full ROM, trachea midline - Chest Chest inspection: Present: normal inspection, symmetric chest wall rise - Respiratory Respiratory exam: Present: normal lung sounds bilaterally - Cardiovascular Cardiovascular exam: Present: regular rate, normal rhythm, normal heart sounds - Abdominal Exam Abdominal exam: Present: tenderness (Very mild generalized tenderness with deep palpation. No peritoneal signs. Generalized abdominal distention. Caput medusa present). Absent: Kolb's sign, Rovsing's sign, tenderness at McBurney' s Point - Extremities Exam Extremities exam: Present: normal inspection, full ROM. Absent: tenderness, pedal edema - Neurological Exam Neurological exam: Present: alert, oriented X3 - Psychiatric Psychiatric exam: Present: normal affect, normal mood - Skin Skin exam: Present: warm, dry, intact, normal color Course Course Narrative: Vitals within normal limits. Physical exam shows generalized distention and caput medusa, no peritoneal signs at this time. Heart lungs within normal limits. Visits reviewed from 02/08/18 and discharge summary. According to noting, patient was treated with ceftaz sitting for 3 days and sent home with Omnicef for 2 days. During that stay, he had a bedside paracentesis performed that drained 550 mL. He had subsequent ultrasound performed of the abdomen and pelvis that stated there was not enough ascites to do a safe has had paracentesis. At this time, patient is non-peritoneal, no concern for SBP. We will obtain basic labs, LFTs, lipase, coags, will check INR and platelets. Patient likely needs another paracentesis. He states that he has never been scheduled for paracentesis in the past, I think that this would be necessary since patient keeps having to have emergent paracentesis performed. We will likely admit, recommend GI consult. GI consult was not placed during last hospital stay according to noting. 23:57 labs show chronic anemia, INR 2.5. No other major abnormality from baseline. Due to previous ultrasound reading is concerning for safety of paracentesis, will admit for IR paracentesis and also for GI consult. Patient was accepted for admission by Dr. Weston. Again, no concern for SBP at this time. No antibiotics given. Vital Signs Temperature 98.4 F 02/16/18 21:05 Pulse Rate 74 02/16/18 21:05 Respiratory Rate 18 02/16/18 21:05 Blood Pressure 112/69 02/16/18 21:05 O2 Sat by Pulse Oximetry 100 02/16/18 21:05 Temperature 98.0 F 02/17/18 03:19 Pulse Rate 72 02/17/18 03:19 Respiratory Rate 18 02/17/18 03:19 Blood Pressure 116/64 02/17/18 03:19 O2 Sat by Pulse Oximetry 95 02/17/18 03:19 Oxygen Delivery Oxygen Delivery Room Air Abdominal Pain - MDM Narrative Medical decision making narrative: Vitals within normal limits. Physical exam shows generalized distention and caput medusa, no peritoneal signs at this time. Heart lungs within normal limits. Visits reviewed from 02/08/18 and discharge summary. According to noting, patient was treated with ceftaz sitting for 3 days and sent home with Omnicef for 2 days. During that stay, he had a bedside paracentesis performed that drained 550 mL. He had subsequent ultrasound performed of the abdomen and pelvis that stated there was not enough ascites to do a safe has had paracentesis. At this time, patient is non-peritoneal, no concern for SBP. We will obtain basic labs, LFTs, lipase, coags, will check INR and platelets. Patient likely needs another paracentesis. He states that he has never been scheduled for paracentesis in the past, I think that this would be necessary since patient keeps having to have emergent paracentesis performed. We will likely admit, recommend GI consult. GI consult was not placed during last hospital stay according to noting. 23:57 labs show chronic anemia, INR 2.5. No other major abnormality from baseline. Due to previous ultrasound reading is concerning for safety of paracentesis, will admit for IR paracentesis and also for GI consult. Patient was accepted for admission by Dr. Weston. Again, no concern for SBP at this time. No antibiotics given. - Medical Records Medical records reviewed: Yes I reviewed the patient's medical records. - Lab Data Lab results reviewed: Yes I reviewed the patient's lab results. Result diagrams: 02/17/18 04:32 02/17/18 04:32 Lab Results 02/16/18 02/16/18 02/16/18 Range/Units 22:05 22:05 22:05 WBC 5.1 (4.3-11.1) K/mcL RBC 3.99 L (4.19-5.50) M/mcL Hgb 9.4 L (12.9-16.9) g/dL Hct 31.4 L (37.5-50.1) % MCV 78.7 L (83.0-100.0) fL MCH 23.6 L (28.0-33.3) pg MCHC 29.9 L (31.6-35.5) g/dL RDW 20.1 H (11.5-14.5) % Plt Count 277 (140-400) K/mcL MPV 10.2 (9.4-12.4) fL Immature Gran % 0.6 (0-4) % Seg Neutrophils % 74.9 % Lymphocytes % 9.2 % Monocytes % 12.9 % Eosinophils % 1.8 % Basophils % 0.6 % Neutrophils # 3.8 (1.6-8.9) K/mcL Lymphocytes # 0.5 L (0.6-4.6) K/mcL Monocytes # 0.7 (0.0-1.3) K/mcL Eosinophils # 0.1 (0.0-0.6) K/mcL Basophils # 0.0 (0.0-0.2) K/mcL PT 17.5 H (9.4-12.1) Seconds INR 1.6 APTT 34.9 (26.0-36.0) Seconds Sodium 133 L (136-145) mEq/L Potassium 4.7 (3.5-5.1) mEq/L Chloride 106 (98-107) mEq/L Carbon Dioxide 19 L (23-29) mEq/L BUN 26 H (8-23) mg/dL Creatinine 0.86 (0.70-1.30) mg/dL Est GFR ( Amer) > 60 (> 60) Est GFR (Non-Af Amer) > 60 (> 60) BUN/Creatinine Ratio 30 H (6-26) Glucose 121 H (70-105) mg/dL Calculated Osmolality 282 (280-300) Lactic Acid (0.5-2.2) mmol/L Calcium 9.6 (8.6-10.3) mg/dL Total Bilirubin 1.4 H (0.3-1.0) mg/dL Direct Bilirubin 0.4 H (0.0-0.2) mg/dL Indirect Bilirubin 1.0 (0.0-1.2) mg/dL AST 18 (13-39) Units/L ALT 9 (7-52) Units/L Alkaline Phosphatase 131 H (34-104) Units/L Serum Total Protein 7.2 (6.4-8.9) g/dL Albumin 3.6 (3.5-5.7) g/dL Globulin 3.6 H (2.4-3.5) g/dL Albumin/Globulin Ratio 1.0 L (1.1-2.2) Lipase 16 (11-82) Units/L Urine Color (Yellow) Urine Clarity (Clear) Urine pH (5.0-8.0) pH Units Ur Specific [place] (1.010-1.025) Urine Protein (Neg-Trace) mg/dL Urine Glucose (UA) (Normal) mg/dL Urine Ketones (Negative) mg/dL Urine Blood (Negative) Urine Nitrite (Negative) Urine Bilirubin (Negative) Urine Urobilinogen (Normal) mg/dL Ur Leukocyte Esterase (Negative) Ur Culture Indicated? (NO) 02/16/18 02/16/18 Range/Units 22:05 22:40 WBC (4.3-11.1) K/mcL RBC (4.19-5.50) M/mcL Hgb (12.9-16.9) g/dL Hct (37.5-50.1) % MCV (83.0-100.0) fL MCH (28.0-33.3) pg MCHC (31.6-35.5) g/dL RDW (11.5-14.5) % Plt Count (140-400) K/mcL MPV (9.4-12.4) fL Immature Gran % (0-4) % Seg Neutrophils % % Lymphocytes % % Monocytes % % Eosinophils % % Basophils % % Neutrophils # (1.6-8.9) K/mcL Lymphocytes # (0.6-4.6) K/mcL Monocytes # (0.0-1.3) K/mcL Eosinophils # (0.0-0.6) K/mcL Basophils # (0.0-0.2) K/mcL PT (9.4-12.1) Seconds INR APTT (26.0-36.0) Seconds Sodium (136-145) mEq/L Potassium (3.5-5.1) mEq/L Chloride (98-107) mEq/L Carbon Dioxide (23-29) mEq/L BUN (8-23) mg/dL Creatinine (0.70-1.30) mg/dL Est GFR ( Amer) (> 60) Est GFR (Non-Af Amer) (> 60) BUN/Creatinine Ratio (6-26) Glucose (70-105) mg/dL Calculated Osmolality (280-300) Lactic Acid 1.2 (0.5-2.2) mmol/L Calcium (8.6-10.3) mg/dL Total Bilirubin (0.3-1.0) mg/dL Direct Bilirubin (0.0-0.2) mg/dL Indirect Bilirubin (0.0-1.2) mg/dL AST (13-39) Units/L ALT (7-52) Units/L Alkaline Phosphatase (34-104) Units/L Serum Total Protein (6.4-8.9) g/dL Albumin (3.5-5.7) g/dL Globulin (2.4-3.5) g/dL Albumin/Globulin Ratio (1.1-2.2) Lipase (11-82) Units/L Urine Color Yellow (Yellow) Urine Clarity Clear (Clear) Urine pH 6.0 (5.0-8.0) pH Units Ur Specific [place] 1.016 (1.010-1.025) Urine Protein Negative (Neg-Trace) mg/dL Urine Glucose (UA) Normal (Normal) mg/dL Urine Ketones Negative (Negative) mg/dL Urine Blood Negative (Negative) Urine Nitrite Negative (Negative) Urine Bilirubin Negative (Negative) Urine Urobilinogen Normal (Normal) mg/dL Ur Leukocyte Esterase Negative (Negative) Ur Culture Indicated? NO (NO) S.B.A.Gianni. - S.B.A.Bunny Situation: Demographics, MOA Background: Presenting Complaint, Relevant PMH, Meds, & Allergies Assessment: Vital Signs, Course and respsone to treatment, Exam Concerns, Patient/Family Expectation, Pertinant Lab Results Recommendation: Barrier(s) to disposition, Recommendation based on pending studies, treatments, or consults S.B.A.RGrecia Report Given to: Dr. Joel Gonzales Repor Time: 23:56 Attestation Statement - Attestation Attestation: I examined this patient and my medical decision-making was reviewed with the Resident Physician. I agree with the documented findings, disposition and treatment plan as described except to the extent set forth below. Findings consistent with ascites. Patient be admitted for paracentesis. Non-peritoneal at time of admission.
--- NOTE | 2018-02-16 22:05 | Emergency Department Note ---
Disposition Clinical Impression: Dyspnea, Ascites, History of cirrhosis, Heart failure Disposition: Admitted As Inpatient Condition: Fair Abdominal Pain HPI - General Chief Complaint: ED Abdominal Pain Stated Complaint: abd pain Time Seen by Provider: 02/16/18 21:26 Source: patient, EMS Vital Signs Reviewed: Yes - History of Present Illness HPI Narrative: 63 y.o. male with PMHx significant for alcoholic cirrhosis presents c/o constant 10/10 upper abd pain x 2 months. He states he has had to have 17L of fluid removed in the past 3 weeks between several ER visits and an office visit with his GI physician Dr. Landa. He says the pain today feels similar to his previous visits caused by the fluid buildup. He denies a regular pericentesis schedule and is unsure what his physician's plan is going forward. He denies any other new onset symptoms. Pt Subjective Complaint: abdominal pain Onset (ago): month(s) Consistency: constant Location: LUQ, RUQ Pain Scale: 10 Quality: aching, fullness Radiation: none Migration to: no migration Improves with: other (pericentesis) Worsens with: nothing Context: other (Alcoholic Cirrhosis) Associated symptoms: Reports: denies other symptoms Treatments prior to arrival: none - Related Data Home Medications Medication Instructions Recorded Confirmed Pregabalin [Lyrica] 200 mg PO TID 11/09/17 02/06/18 Ferrous Sulfate [Iron] 325 mg PO DAILY 11/10/17 02/06/18 Furosemide [Lasix] 40 mg PO DAILY 02/06/18 02/06/18 Spironolactone [Aldactone] 200 mg PO DAILY 02/06/18 02/06/18 Tiotropium [place] [Spiriva 2 puff IH DAILY 02/06/18 02/06/18 Respimat] Warfarin Sodium 4 mg PO DAILY 02/06/18 02/06/18 Previous Rx's Medication Instructions Recorded Allopurinol [Zyloprim 300 MG] 300 mg PO DAILY tablet 10/24/16 Digoxin [Lanoxin] 0.25 mg PO DAILY tablet 10/24/16 Levothyroxine [Synthroid] 50 mcg PO 0630 tablet 10/24/16 Diltiazem CD (24hr) [Cardizem CD] 120 mg PO QPM #30 cap.er.24h 11/13/17 Propranolol [Inderal] 20 mg PO BID #60 tablet 11/13/17 Cefdinir [Omnicef] 300 mg PO DAILY #2 capsule 02/08/18 HYDROcodone/Acet 10/325 mg [[place] 1 tab PO Q8HR PRN 2 Days #6 tab 02/08/18 10-325 mg] Allergies Allergy/AdvReac Type Severity Reaction Status Date / Time tramadol AdvReac Itching Verified 01/15/18 16:18 Constitutional: Denies: fever, chills Cardiovascular: Denies: chest pain, palpitations Respiratory: Denies: cough, dyspnea, wheezes Gastrointestinal: Reports: abdominal pain. Denies: nausea, vomiting, constipation, melena, hematochezia Genitourinary: Denies: urgency, dysuria, frequency, hematuria Abdominal Pain PMH - Past Medical History Medical history: Reports: atrial fibrillation, cirrhosis, COPD, DVT, hypertension, other Male Surgical History: Reports: herniorrhaphy, knee replacement Psychiatric history: Reports: no psych history - Social History Smoking status: Former smoker Alcohol use: Reports: none, occasionally Drug use: Reports: none Physical Exam - General Limitations: no limitations General appearance: alert - Head Head exam: atraumatic, normocephalic - Eye Eye exam: Present: EOMI, scleral icterus. Absent: conjunctival injection - Neck Neck exam: Present: normal inspection, full ROM. Absent: tenderness, lymphadenopathy - Chest Chest inspection: Present: normal inspection. Absent: tenderness - Respiratory Respiratory exam: Present: normal lung sounds bilaterally. Absent: respiratory distress, wheezes - Cardiovascular Cardiovascular exam: Present: irregular rhythm, systolic murmur - Abdominal Exam Abdominal exam: Present: tenderness, distention (superficial veins enlarged), normal bowel sounds, organomegaly (hepatomegaly) Abdominal tenderness: Present: diffuse - Neurological Exam Neurological exam: Present: alert, oriented X3 Course Vital Signs Temperature 98.4 F 02/16/18 21:05 Pulse Rate 74 02/16/18 21:05 Respiratory Rate 18 02/16/18 21:05 Blood Pressure 112/69 02/16/18 21:05 O2 Sat by Pulse Oximetry 100 02/16/18 21:05 Temperature 98.4 F 02/16/18 21:05 Pulse Rate 69 02/17/18 00:56 Respiratory Rate 20 02/17/18 00:56 Blood Pressure 108/66 02/17/18 00:56 O2 Sat by Pulse Oximetry 100 02/17/18 00:56 Oxygen Delivery Oxygen Delivery Room Air Abdominal Pain - Lab Data Result diagrams: 02/16/18 22:05 02/16/18 22:05 Lab Results 02/16/18 02/16/18 02/16/18 Range/Units 22:05 22:05 22:05 WBC 5.1 (4.3-11.1) K/mcL RBC 3.99 L (4.19-5.50) M/mcL Hgb 9.4 L (12.9-16.9) g/dL Hct 31.4 L (37.5-50.1) % MCV 78.7 L (83.0-100.0) fL MCH 23.6 L (28.0-33.3) pg MCHC 29.9 L (31.6-35.5) g/dL RDW 20.1 H (11.5-14.5) % Plt Count 277 (140-400) K/mcL MPV 10.2 (9.4-12.4) fL Immature Gran % 0.6 (0-4) % Seg Neutrophils % 74.9 % Lymphocytes % 9.2 % Monocytes % 12.9 % Eosinophils % 1.8 % Basophils % 0.6 % Neutrophils # 3.8 (1.6-8.9) K/mcL Lymphocytes # 0.5 L (0.6-4.6) K/mcL Monocytes # 0.7 (0.0-1.3) K/mcL Eosinophils # 0.1 (0.0-0.6) K/mcL Basophils # 0.0 (0.0-0.2) K/mcL PT 17.5 H (9.4-12.1) Seconds INR 1.6 APTT 34.9 (26.0-36.0) Seconds Sodium 133 L (136-145) mEq/L Potassium 4.7 (3.5-5.1) mEq/L Chloride 106 (98-107) mEq/L Carbon Dioxide 19 L (23-29) mEq/L BUN 26 H (8-23) mg/dL Glucose 121 H (70-105) mg/dL Calculated Osmolality 282 (280-300) Lactic Acid (0.5-2.2) mmol/L Calcium 9.6 (8.6-10.3) mg/dL Total Bilirubin 1.4 H (0.3-1.0) mg/dL Direct Bilirubin 0.4 H (0.0-0.2) mg/dL Indirect Bilirubin 1.0 (0.0-1.2) mg/dL AST 18 (13-39) Units/L ALT 9 (7-52) Units/L Alkaline Phosphatase 131 H (34-104) Units/L Serum Total Protein 7.2 (6.4-8.9) g/dL Albumin 3.6 (3.5-5.7) g/dL Globulin 3.6 H (2.4-3.5) g/dL Albumin/Globulin Ratio 1.0 L (1.1-2.2) Lipase 16 (11-82) Units/L Urine Color (Yellow) Urine Clarity (Clear) Urine pH (5.0-8.0) pH Units Ur Specific [place] (1.010-1.025) Urine Protein (Neg-Trace) mg/dL Urine Glucose (UA) (Normal) mg/dL Urine Ketones (Negative) mg/dL Urine Blood (Negative) Urine Nitrite (Negative) Urine Bilirubin (Negative) Urine Urobilinogen (Normal) mg/dL Ur Leukocyte Esterase (Negative) Ur Culture Indicated? (NO) 02/16/18 02/16/18 Range/Units 22:05 22:40 WBC (4.3-11.1) K/mcL RBC (4.19-5.50) M/mcL Hgb (12.9-16.9) g/dL Hct (37.5-50.1) % MCV (83.0-100.0) fL MCH (28.0-33.3) pg MCHC (31.6-35.5) g/dL RDW (11.5-14.5) % Plt Count (140-400) K/mcL MPV (9.4-12.4) fL Immature Gran % (0-4) % Seg Neutrophils % % Lymphocytes % % Monocytes % % Eosinophils % % Basophils % % Neutrophils # (1.6-8.9) K/mcL Lymphocytes # (0.6-4.6) K/mcL Monocytes # (0.0-1.3) K/mcL Eosinophils # (0.0-0.6) K/mcL Basophils # (0.0-0.2) K/mcL PT (9.4-12.1) Seconds INR APTT (26.0-36.0) Seconds Sodium (136-145) mEq/L Potassium (3.5-5.1) mEq/L Chloride (98-107) mEq/L Carbon Dioxide (23-29) mEq/L BUN (8-23) mg/dL Glucose (70-105) mg/dL Calculated Osmolality (280-300) Lactic Acid 1.2 (0.5-2.2) mmol/L Calcium (8.6-10.3) mg/dL Total Bilirubin (0.3-1.0) mg/dL Direct Bilirubin (0.0-0.2) mg/dL Indirect Bilirubin (0.0-1.2) mg/dL AST (13-39) Units/L ALT (7-52) Units/L Alkaline Phosphatase (34-104) Units/L Serum Total Protein (6.4-8.9) g/dL Albumin (3.5-5.7) g/dL Globulin (2.4-3.5) g/dL Albumin/Globulin Ratio (1.1-2.2) Lipase (11-82) Units/L Urine Color Yellow (Yellow) Urine Clarity Clear (Clear) Urine pH 6.0 (5.0-8.0) pH Units Ur Specific [place] 1.016 (1.010-1.025) Urine Protein Negative (Neg-Trace) mg/dL Urine Glucose (UA) Normal (Normal) mg/dL Urine Ketones Negative (Negative) mg/dL Urine Blood Negative (Negative) Urine Nitrite Negative (Negative) Urine Bilirubin Negative (Negative) Urine Urobilinogen Normal (Normal) mg/dL Ur Leukocyte Esterase Negative (Negative) Ur Culture Indicated? NO (NO)
[2018-02-16 22:24] LABS: Basophils % 0.6 %; Eosinophils # 0.1 K/mcL (0.0-0.6); Eosinophils % 1.8 %; Hematocrit 31.4 % (37.5-50.1); Hemoglobin 9.4 g/dL (12.9-16.9); Immature Granulocytes % 0.6 % (0-4); Lymphocytes # 0.5 K/mcL (0.6-4.6); Lymphocytes % 9.2 %; Mean Corpuscular HGB Conc 29.9 g/dL (31.6-35.5); Mean Corpuscular Hemoglobin 23.6 pg (28.0-33.3); Mean Corpuscular Volume 78.7 fL (83.0-100.0); Mean Platelet Volume 10.2 fL (9.4-12.4); Monocytes # 0.7 K/mcL (0.0-1.3); Monocytes % 12.9 %; Neutrophils # 3.8 K/mcL (1.6-8.9); Platelet Count 277 K/mcL (140-400); Red Blood Count 3.99 M/mcL (4.19-5.50); Red Cell Distribution Width 20.1 % (11.5-14.5); Segmented Neutrophils % 74.9 %
[2018-02-16 22:29] LABS: INR 1.6; Prothrombin Time 17.5 Seconds (9.4-12.1)
[2018-02-16 22:31] LABS: Activated Partial Thrombo Time 34.9 Seconds (26.0-36.0)
[2018-02-16 23:08] LABS: Alanine Aminotransferase 9 Units/L (7-52); Albumin 3.6 g/dL (3.5-5.7); Alkaline Phosphatase 131 Units/L (34-104); Aspartate Amino Transferase 18 Units/L (13-39); Bilirubin,Direct 0.4 mg/dL (0.0-0.2); Bilirubin,Total 1.4 mg/dL (0.3-1.0); Blood Urea Nitrogen 26 mg/dL (8-23); Calcium 9.6 mg/dL (8.6-10.3); Carbon Dioxide 19 mEq/L (23-29); Chloride 106 mEq/L (98-107); Globulin 3.6 g/dL (2.4-3.5); Glucose 121 mg/dL (70-105); Lipase 16 Units/L (11-82); Osmolality,Calculated 282 (280-300); Potassium 4.7 mEq/L (3.5-5.1); Sodium 133 mEq/L (136-145); Total Protein 7.2 g/dL (6.4-8.9)
[2018-02-16 23:18] LABS: Bilirubin,Urine Negative (Negative); Blood,Urine Negative (Negative); Clarity,Urine Clear (Clear); Color,Urine Yellow (Yellow); Glucose,Urine (UA) Normal (Normal); Ketones,Urine Negative (Negative); Leukocyte Esterase,Urine Negative (Negative); Nitrite,Urine Negative (Negative); Protein,Urine Negative (Neg-Trace); Specific Gravity,Urine 1.016 (1.010-1.025); Urobilinogen,Urine Normal (Normal)
[2018-02-17] MEDS ORDERED: *HR* FentaNYL (PF) 100 MCG/2 ML VIAL IVP ONE (00:13)
[2018-02-17 02:33] LABS: BUN/Creatinine Ratio 30 (6-26); eGFR For Non-African Americans > 60 (> 60)
[2018-02-17] MEDS ORDERED: Naloxone 0.4 MG/ML INJ IVP PRN (04:19)
[2018-02-17] MEDS ORDERED: traMADol 50 MG TABLET PO PRN (04:27)
[2018-02-17 05:15] LABS: Basophils % 0.8 %; Eosinophils # 0.1 K/mcL (0.0-0.6); Eosinophils % 1.9 %; Hematocrit 28.7 % (37.5-50.1); Hemoglobin 8.6 g/dL (12.9-16.9); Immature Granulocytes % 0.4 % (0-4); Lymphocytes # 0.6 K/mcL (0.6-4.6); Lymphocytes % 12.7 %; Mean Corpuscular Hemoglobin 23.5 pg (28.0-33.3); Mean Corpuscular Volume 78.4 fL (83.0-100.0); Mean Platelet Volume 9.7 fL (9.4-12.4); Monocytes # 0.7 K/mcL (0.0-1.3); Monocytes % 15.2 %; Neutrophils # 3.3 K/mcL (1.6-8.9); Platelet Count 250 K/mcL (140-400); Red Blood Count 3.66 M/mcL (4.19-5.50); Red Cell Distribution Width 20.1 % (11.5-14.5)
[2018-02-17 05:49] LABS: Alanine Aminotransferase 8 Units/L (7-52); Albumin 3.3 g/dL (3.5-5.7); Alkaline Phosphatase 125 Units/L (34-104); Aspartate Amino Transferase 16 Units/L (13-39); BUN/Creatinine Ratio 35 (6-26); Bilirubin,Total 1.3 mg/dL (0.3-1.0); Blood Urea Nitrogen 26 mg/dL (8-23); Calcium 9.1 mg/dL (8.6-10.3); Carbon Dioxide 18 mEq/L (23-29); Chloride 108 mEq/L (98-107); Globulin 3.2 g/dL (2.4-3.5); Glucose 98 mg/dL (70-105); Osmolality,Calculated 285 (280-300); Potassium 4.6 mEq/L (3.5-5.1); Sodium 135 mEq/L (136-145); Total Protein 6.5 g/dL (6.4-8.9); eGFR For Non-African Americans > 60 (> 60)
[2018-02-17] MEDS ORDERED: *HR* HYDROmorphone 2 MG/ML SYRINGE IVP ONE ×2 (09:19→12:08)
[2018-02-17] MEDS: Tiotropium 18 MCG inhalation IH SCH (10:51)
--- NOTE | 2018-02-17 14:00 | Internal Med History&Physical ---
Date of Encounter: 02/17/18 Time of Encounter: 07:30 Internal Medicine - H&P: HPI Chief complaint: Abdominal distention Admitted From: Home Plans for Post Hospital Care: Home History of present illness: Mr. Lomeli is a 63 year old male with history of cirrhosis and ascites, COPD, atrial fibrillation, and hypertension presented to the ED with worsening abdominal distention. He has always had abdominal distention secondary to ascites but for the past 2 days his symptoms have worsened. His symptoms are constant since the onset and progressively worsening. He reports he has had several recent paracentesis procedures and reports that he is visited multiple emergency departments for paracentesis and estimates 17 L of fluid that had been removed in the past 3 weeks between different hospitals. He denies pain with his distention but does report that as his abdomen gets distended it makes it difficult for him to breathe. He cannot recall aggravating factors but his symptoms are alleviated with paracentesis. As per chart review he was recently admitted to [facility] and discharged on 02/08. During that admission he was treated with antibiotics for possible bacterial peritonitis. He denies fever, chills, nausea, vomiting, diarrhea, melena, hematochezia, hematemesis. He follows with Dr. mooney as outpatient for his cirrhosis. He denies drinking alcohol. He reports that he is compliant with follow-ups and medications abdominal US: 02/06- IMPRESSION: Not enough ascites to perform a safe paracentesis. Ct A/p IMPRESSION: 02/06 Cirrhosis, splenomegaly, and sequelae of portal hypertension. There is mild abdominal ascites, decreased compared to 01/15/2018. Multiple vascular collaterals are seen. Colonoscopy report from October 2017- 2 nonbleeding colonic angiodysplastic lesions which were treated with bipolar cautery. Diverticulosis in the sigmoid colon. Nonbleeding internal hemorrhoids. There was no specimen collected. TTE:10/2017 Impressions: LVEF 60-65%. Mild concentric left ventricular hypertrophy. Indeterminate diastolic function. Definity echo contrast was used. Normal right ventricular structure and function. Mild mitral regurgitation. Mild tricuspid regurgitation. Moderate-severe aortic stenosis. Mild pulmonary hypertension. Past Med Surg Social Fam HX - Past Medical History Medical history: atrial fibrillation, cirrhosis, COPD, DVT, hypertension, other Additional medical history: Gout Psychiatric history: no psych history - Past Surgical History Surgical History: herniorrhaphy, orthopedic, other, other Additional surgical history: cirrhosis, carpal tunnel surgery, herniated disc repair, left arm surgery - Social History Smoking Status: Former smoker Smokeless Tobacco Status: No Alcohol use: none, occasionally Drug use: none - Family History Father Hx Family Endocrine Disorder: Yes Internal Medicine - H&P: Meds Allopurinol [Zyloprim 300 MG] 300 mg PO DAILY tablet 10/24/16 [Rx] Digoxin [Lanoxin] 0.25 mg PO DAILY tablet 10/24/16 [Rx] Levothyroxine [Synthroid] 50 mcg PO 0630 tablet 10/24/16 [Rx] Pregabalin [Lyrica] 200 mg PO TID 11/09/17 [History] Ferrous Sulfate [Iron] 325 mg PO DAILY 11/10/17 [History] Diltiazem CD (24hr) [Cardizem CD] 120 mg PO QPM #30 cap.er.24h 11/13/17 [Rx] Propranolol [Inderal] 20 mg PO BID #60 tablet 11/13/17 [Rx] Furosemide [Lasix] 40 mg PO DAILY 02/06/18 [History] Spironolactone [Aldactone] 200 mg PO DAILY 02/06/18 [History] Tiotropium [place] [Spiriva Respimat] 2 puff IH DAILY 02/06/18 [History] Warfarin Sodium 4 mg PO DAILY 02/06/18 [History] Cefdinir [Omnicef] 300 mg PO DAILY #2 capsule 02/08/18 [Rx] HYDROcodone/Acet 10/325 mg [[place] 10-325 mg] 1 tab PO Q8HR PRN 2 Days #6 tab [Rx] Lactulose [Enulose] 10 gm PO TID 02/17/18 [History] Potassium Chloride [K-Tab ER] 20 meq PO DAILY 02/17/18 [History] 3 Allergy/AdvReac Type Severity Reaction Status Date / Time tramadol AdvReac Itching Verified 01/15/18 16:18 All Systems PM: review of systems was performed and is negative for pertinent findings except as documented above in the HPI. - Constitutional Vitals: Temp Pulse Resp BP Pulse Ox 97.8 F 77 14 107/66 93 02/17/18 10:30 02/17/18 10:30 02/17/18 10:30 02/17/18 10:30 02/17/18 10:30 Exam: General: Patient is alert, oriented, no acute distress, morbidly obese Head: atraumatic, normocephalic, spider angiomas on the cheek Eye: normal appearance, PERRL, no scleral icterus, no conjunctival injection, ENT: mucous membranes moist, normal external ear exam Neck: normal inspection, trachea midline, full ROM, no carotid bruits Chest: normal inspection, symmetric chest rise Respiratory: Decreased breath sounds secondary to body habitus, Good respiratory effort. Bilateral breath sounds are clear without wheezing, crackles, or rhonchi. Cardiovascular: Distant heart sounds secondary to body habitus, irregular. s1 and s2 No clicks, rubs, gallops, or murmors. Abdomen: Bowel sounds present normoactive x-4 quadrants. Abdomen is soft,, ndistended. no Epigastric tenderness. No guarding or rebound. , Positive fluid wave musculoskeletal: Spontaneously moving all extremities. 3+ edema, no calf tenderness , venous stasis changes, chronic skin changes secondary to venous stasis Skin: warm, dry, intact. Neuro: Alert and oriented x4. Sensation light touch intact. Cranial nerves 2- 12 is intact. Not aphasic,rapid hand movements intact, [id number] intact, absent tremors on outstretched hands Psych: Patient's affect is normal Internal Med - H&P Results - Labs CBC & Chem 7: 02/17/18 04:32 02/17/18 04:32 Labs: Short CBC 02/17/18 Range/Units 04:32 WBC 4.7 (4.3-11.1) K/mcL Hgb 8.6 L (12.9-16.9) g/dL Hct 28.7 L (37.5-50.1) % Plt Count 250 (140-400) K/mcL Neutrophils # 3.3 (1.6-8.9) K/mcL BMP 02/17/18 04:32 Sodium 135 L Potassium 4.6 Chloride 108 H Carbon Dioxide 18 L BUN 26 H Creatinine 0.74 Glucose 98 Calcium 9.1 Liver Function 02/17/18 Range/Units 04:32 Total Bilirubin 1.3 H (0.3-1.0) mg/dL AST 16 (13-39) Units/L ALT 8 (7-52) Units/L Alkaline Phosphatase 125 H (34-104) Units/L Albumin 3.3 L (3.5-5.7) g/dL - Assessment and plan (1) Cirrhosis of liver with ascites Current Visit: Yes Status: Acute Assessment and plan: MELD 15, tong class B prashantdrey 26.7 secondary to decompensated cirrhosis s/p multiple paracentesis low suspicion for SBP - has no fever, leukocytosis or rebound tenderness. IR consulted for therapeutic and diagnostic paracentesis ceftazidime IVPB continue lasix and aldactone watch electrolytes Resume Coumadin post paracentesis- INR in a.m. avoid hepatotoxic medications will send AFP grams per L of fluid removed if >5 L removed albumin should be given - Qualifiers: Hepatic cirrhosis type: unspecified hepatic cirrhosis Qualified Code(s): K74.60 - Unspecified cirrhosis of liver; R18.8 - Other ascites (2) Portal hypertension Current Visit: Yes Status: Acute Assessment and plan: needs to have Q6M RUQ US will send Afp continue BB, lasix and aldactone (3) Chronic venous stasis dermatitis of both lower extremities Current Visit: Yes Status: Acute Assessment and plan: wound care consulted elevated LE (4) Anemia Current Visit: No Status: Chronic Assessment and plan: chronic anemia H/h currently at baseline ( 7.6-9) will continue to monitor H/H type and screen will obtain recent EGD report colonoscopy October 2017- 2 nonbleeding colonic angiodysplastic lesions which were treated with bipolar cautery. Diverticulosis in the sigmoid colon. Nonbleeding internal hemorrhoids. There was no specimen collected. Qualifiers: Anemia type: unspecified type Qualified Code(s): D64.9 - Anemia, unspecified (5) Atrial fibrillation Current Visit: No Status: Chronic Assessment and plan: HR currently controlled will continue digoxin, diltiazem and coumadin TTE: :10/2017 Impressions: LVEF 60-65%. Mild concentric left ventricular hypertrophy. Indeterminate diastolic function. Definity echo contrast was used. Normal right ventricular structure and function. Mild mitral regurgitation. Mild tricuspid regurgitation. Moderate-severe aortic stenosis. Mild pulmonary hypertension. Qualifiers: Atrial fibrillation type: chronic Qualified Code(s): I48.2 - Chronic atrial fibrillation (6) DM type 2 (diabetes mellitus, type 2) Current Visit: No Status: Chronic Assessment and plan: will send A1c finger sticks Q6H LDISS Qualifiers: Diabetes mellitus terminal clerk insulin use: without terminal clerk use Diabetes mellitus complication status: with skin complications Diabetes mellitus complication detail: with foot ulcer Qualified Code(s): E11.621 - Type 2 diabetes mellitus with foot ulcer; L97.509 - Non-pressure chronic ulcer of other part of unspecified foot with unspecified severity (7) DVT prophylaxis Current Visit: No Status: Acute Assessment and plan: on coumadin - Time Spent With Patient Total time spent is greater than 50% in coordination of care (as documented) at patient's floor/unit and/or counseling patient:
[2018-02-17] MEDS ORDERED: *HR* Warfarin 4 MG TABLET PO SCH (18:00)
[2018-02-17] MEDS ORDERED: Diltiazem CD (24hr) 120 MG CAPSULE PO SCH (18:00)
[2018-02-17 18:14] LABS: Hematocrit 29.3 % (37.5-50.1); Hemoglobin 8.5 g/dL (12.9-16.9); Mean Corpuscular Hemoglobin 22.7 pg (28.0-33.3); Mean Corpuscular Volume 78.1 fL (83.0-100.0); Mean Platelet Volume 10.3 fL (9.4-12.4); Platelet Count 250 K/mcL (140-400); Red Blood Count 3.75 M/mcL (4.19-5.50); Red Cell Distribution Width 20.2 % (11.5-14.5)
[2018-02-17 18:24] LABS: INR 1.5; Prothrombin Time 16.5 Seconds (9.4-12.1)
[2018-02-17] MEDS: Lactulose Oral Soln 20 GM/30 ML UDC PO SCH ×2 (18:31→21:39)
[2018-02-17] MEDS: Pregabalin 50 MG CAPSULE PO SCH ×2 (18:31→21:38)
[2018-02-17] MEDS: *HR* OxyCODONE Immed Rel 5 MG TABLET PO PRN ×2 (18:32→22:42)
[2018-02-17] MEDS: cefTAZidime 2,000 MG in 0.9 % Sodium Chloride Mini Bag 100 ML IVPB SCH (18:32)
[2018-02-17] MEDS: Albumin 25% 25gram/100mL 25 GM/100 ML IV.SOLN IVPB SCH ×3 (19:40→23:27)
[2018-02-18] MEDS: cefTAZidime 2,000 MG in 0.9 % Sodium Chloride Mini Bag 100 ML IVPB SCH (01:12)
[2018-02-18] MEDS: Albumin 25% 25gram/100mL 25 GM/100 ML IV.SOLN IVPB SCH (01:43)
[2018-02-18] MEDS ORDERED: Levothyroxine 25 MCG TABLET PO SCH (06:30)
[2018-02-18 08:14] LABS: Hematocrit 27.4 % (37.5-50.1); Hemoglobin 8.1 g/dL (12.9-16.9); Mean Corpuscular HGB Conc 29.6 g/dL (31.6-35.5); Mean Corpuscular Hemoglobin 23.5 pg (28.0-33.3); Mean Corpuscular Volume 79.4 fL (83.0-100.0); Mean Platelet Volume 10.1 fL (9.4-12.4); Platelet Count 234 K/mcL (140-400); Red Blood Count 3.45 M/mcL (4.19-5.50); Red Cell Distribution Width 19.9 % (11.5-14.5)
[2018-02-18 08:20] LABS: INR 1.6; Prothrombin Time 17.8 Seconds (9.4-12.1)
[2018-02-18 08:53] LABS: BUN/Creatinine Ratio 29 (6-26); Blood Urea Nitrogen 25 mg/dL (8-23); Carbon Dioxide 18 mEq/L (23-29); Chloride 105 mEq/L (98-107); Glucose 120 mg/dL (70-105); Osmolality,Calculated 280 (280-300); Potassium 4.7 mEq/L (3.5-5.1); Sodium 132 mEq/L (136-145); eGFR For Non-African Americans > 60 (> 60)
[2018-02-18] MEDS ORDERED: Furosemide 40 MG TABLET PO SCH (09:00)
[2018-02-18] MEDS ORDERED: *HR* Digoxin 0.25 MG TABLET PO SCH (09:00)
[2018-02-18] MEDS ORDERED: Cefdinir 300 MG CAPSULE PO SCH (09:00)
[2018-02-18] MEDS: Tiotropium 18 MCG inhalation IH SCH (09:06)
--- NOTE | 2018-02-18 09:49 | Discharge Summary ---
- NOTES TO OUTPATIENT PROVIDER Notes to Outpatient Provider: follow up ascites fluid cytology. follow up bmp ( was staretd on cipro for 5 days for SBP prophylaxis ). follow up with Dr. mooney. follow up with INR clinic in the AM - was started on ciprofloxacin for SBP prophylaxis Orders not resulted at time of discharge: Pending orders 02/17/18 14:58 Cytology [PTH] Routine 02/18/18 07:21 AFP Tumor Marker Non- AM 04002/19/18 04:00 BMP [Basic Metabolic Panel] AM 0400 Complete Blood Count w/o Diff [HEME] AM 04002/20/18 04:00 BMP [Basic Metabolic Panel] AM 0400 Complete Blood Count w/o Diff [HEME] AM 04002/21/18 04:00 BMP [Basic Metabolic Panel] AM 0400 Complete Blood Count w/o Diff [HEME] AM 04002/22/18 04:00 BMP [Basic Metabolic Panel] AM 0400 Complete Blood Count w/o Diff [HEME] AM 0400 Date of Encounter: 02/18/18 Time of Encounter: 09:48 - Discharge Diagnosis (1) Cirrhosis of liver with ascites Priority: Primary Status: Acute Qualifiers: Hepatic cirrhosis type: unspecified hepatic cirrhosis Qualified Code(s): K74.60 - Unspecified cirrhosis of liver; R18.8 - Other ascites (2) Portal hypertension Priority: Secondary Status: Acute (3) Chronic venous stasis dermatitis of both lower extremities Priority: Secondary Status: Acute (4) Anemia Priority: Secondary Status: Chronic Qualifiers: Anemia type: unspecified type Qualified Code(s): D64.9 - Anemia, unspecified (5) Atrial fibrillation Priority: Secondary Status: Chronic Qualifiers: Atrial fibrillation type: chronic Qualified Code(s): I48.2 - Chronic atrial fibrillation (6) DM type 2 (diabetes mellitus, type 2) Priority: Secondary Status: Chronic Qualifiers: Diabetes mellitus retirement insulin use: without retirement use Diabetes mellitus complication status: with skin complications Diabetes mellitus complication detail: with foot ulcer Qualified Code(s): E11.621 - Type 2 diabetes mellitus with foot ulcer; L97.509 - Non-pressure chronic ulcer of other part of unspecified foot with unspecified severity (7) DVT prophylaxis Priority: Secondary Status: Acute (8) Obese Priority: Secondary Status: Acute Qualifiers: Obesity type: due to excess calories Body mass index: BMI 39.0-39.9 Qualified Code(s): E66.01 - Morbid (severe) obesity due to excess calories; Z68.39 - Body mass index (BMI) 39.0-39.9, adult Hospital course: Mr. Lomeli is a 63 year old male with history of cirrhosis and ascites, COPD, atrial fibrillation, and hypertension presented to the ED with worsening abdominal distention. He has always had abdominal distention secondary to ascites but for the past 2 days his symptoms have worsened. His symptoms are constant since the onset and progressively worsening. He reports he has had several recent paracentesis procedures and reports that he is visited multiple emergency departments for paracentesis and estimates 17 L of fluid that had been removed in the past 3 weeks between different hospitals. He denies pain with his distention but does report that as his abdomen gets distended it makes it difficult for him to breathe. He cannot recall aggravating factors but his symptoms are alleviated with paracentesis. As per chart review he was recently admitted to [facility] and discharged on 02/08. On admission he denied fever, chills, abdominal pain, vomiting, diarrhea, melena, hematochezia, hematemesis. He was admitted secondary to above presentation for IR guided therapeutic paracentesis. He remained afebrile and vital signs remained stable. He was treated empirically with third-generation cephalic spine for SBP. IR was consulted and he was status post therapeutic paracentesis on 02/17 were 10.3 L of straw-colored fluid was removed. He was given albumin post paracentesis. Vital signs remained stable, CBC post paracentesis was stable. His dyspnea and abdominal distention resolved post paracentesis. paracentesis site did not show any evidency of leakage or bleeding. Patient inquired about being discharged home. Coumadin resumed and he was given appointment with Coumadin clinic to follow- up his INR on 02/19. He was started on oral ciprofloxacin for SBP prophylaxis and was told that he would need to have close monitoring of his INR. He was told to follow-up with primary care physician and his GI physician as outpatient. PIR was told to make appointments for the patient. he was counseled on nutrition, alcohol abstinence Discharge discussed with: patient - Time Spent with Patient Total time spent providing and/or coordinating discharge services: Less than 30 minutes - Discharge Medications Prescriptions: Ciprofloxacin [Cipro] 500 mg PO DAILY 5 Days #5 tablet Home Medications: Allopurinol [Zyloprim 300 MG] 300 mg PO DAILY tablet 10/24/16 [Rx] Digoxin [Lanoxin] 0.25 mg PO DAILY tablet 10/24/16 [Rx] Levothyroxine [Synthroid] 50 mcg PO 0630 tablet 10/24/16 [Rx] Pregabalin [Lyrica] 200 mg PO TID 11/09/17 [History] Ferrous Sulfate [Iron] 325 mg PO DAILY 11/10/17 [History] Diltiazem CD (24hr) [Cardizem CD] 120 mg PO QPM #30 cap.er.24h 11/13/17 [Rx] Propranolol [Inderal] 20 mg PO BID #60 tablet 11/13/17 [Rx] Furosemide [Lasix] 40 mg PO DAILY 02/06/18 [History] Spironolactone [Aldactone] 200 mg PO DAILY 02/06/18 [History] Tiotropium [place] [Spiriva Respimat] 2 puff IH DAILY 02/06/18 [History] Warfarin Sodium 4 mg PO DAILY 02/06/18 [History] Lactulose [Enulose] 10 gm PO TID 02/17/18 [History] Ciprofloxacin [Cipro] 500 mg PO DAILY 5 Days #5 tablet 02/18/18 [Rx] Allergies/Adverse Reactions: 3 Allergy/AdvReac Type Severity Reaction Status Date / Time tramadol AdvReac Itching Verified 01/15/18 16:18 Date of admission: 02/16/18 23:56 Primary care physician: Sendy Quan CNP Consults: 02/17/18 08:04 Consult to Interventional Radiology [CONS] Stat Consulting Provider: Radiology Interventional Cols Reason for Consult: paracentesis, diagnostic and therapeutic Call Completed: Yes 02/17/18 08:09 Consult to Wound Care [CONS] Stat Reason for Consult: lower extremity venous staiss Call Completed: No - Constitutional Vitals: Temp Pulse Resp BP Pulse Ox 98.0 F 72 16 113/75 98 02/18/18 03:28 02/18/18 03:28 02/18/18 03:28 02/18/18 03:28 02/18/18 03:28 Exam: General: Patient is alert, oriented, no acute distress, morbidly obese Head: atraumatic, normocephalic, spider angiomas on the cheek Eye: normal appearance, PERRL, no scleral icterus, no conjunctival injection, ENT: mucous membranes moist, normal external ear exam Neck: normal inspection, trachea midline, full ROM, no carotid bruits Chest: normal inspection, symmetric chest rise Respiratory: Decreased breath sounds secondary to body habitus, Good respiratory effort. Bilateral breath sounds are clear without wheezing, crackles, or rhonchi. Cardiovascular: Distant heart sounds secondary to body habitus, irregular. s1 and s2 No clicks, rubs, gallops, or murmors. Abdomen: Bowel sounds present normoactive x-4 quadrants. Abdomen is soft,, distended. ( although dramatically improved from admission) no Epigastric tenderness. No guarding or rebound. musculoskeletal: Spontaneously moving all extremities. 3+ edema, no calf tenderness , venous stasis changes, chronic skin changes secondary to venous stasis Skin: warm, dry, intact. Neuro: Alert and oriented x4. Sensation light touch intact. Cranial nerves 2- 12 is intact. Not aphasic,rapid hand movements intact, [id number] intact, absent tremors on outstretched hands Psych: Patient's affect is normal - Patient Status Disposition: Home, Self-Care Condition: Fair Functional capacity at discharge: uses cane/walker Overall status at discharge: patient is progressing back to baseline - Discharge Instructions Follow Up With: Sendy Quan, ANALYSIS SPECIALIST [Primary Care Provider] - - Diet and Activity Activity: increase activity as tolerated Diet: low salt diet
[2018-02-18] MEDS: Pregabalin 50 MG CAPSULE PO SCH (10:03)
[2018-02-18] MEDS: *HR* OxyCODONE Immed Rel 5 MG TABLET PO PRN (10:03)
[2018-02-18] MEDS: Lactulose Oral Soln 20 GM/30 ML UDC PO SCH (10:04)
[2018-02-18 10:12] VITALS: BP 104/65
== END 2018-02-18 12:30 | disposition home or self-care (01) ==
LOC: EMEROOARM 20:58 → 3ANU 20:58 → SUATTDRO 23:56 → 3ANU 02-17 01:36
PROVIDERS: ADMIT Pediatrics; ATTEND Internal Medicine

== ENCOUNTER 2018-03-01 00:46 | Observation (INO) ==
[2018-03-01] MEDS ORDERED: Ondansetron 4 MG/2 ML VIAL IVP ONE (01:48)
--- NOTE | 2018-03-01 01:50 | Emergency Department Note ---
Disposition Clinical Impression: Ascites Qualifiers: Ascites type: other type Qualified Code(s): R18.8 - Other ascites Disposition: Admitted As Inpatient Condition: Good Abdominal Pain HPI - General Chief Complaint: ED Abdominal Pain Time Seen by Provider: 03/01/18 01:37 Source: patient Mode of arrival: private vehicle Limitations: no limitations Nursing Notes Reviewed: Yes Vital Signs Reviewed: Yes - History of Present Illness HPI Narrative: 63-year-old male with a history of cirrhosis stage III presents emergency department for evaluation of abdominal distention and pain since this afternoon. Patient states he has been getting several paracentesis is here lately, family states they have removed about 30 L of fluid from him over the last month. He states he was just here about 2 weeks ago and had a paracentesis. Patient follows with Dr. Landa for his liver, he states after his last discharge is unable be seen due to the provider being on vacation. He has a standing appointment on March 17. Patient states over the last couple days his abdomen has become increasingly distended, he feels incredibly full which is causing him to fill uncomfortable. Patient denies fevers, chills, shortness of breath, nausea, vomiting, constipation, diarrhea. His last bowel movement was today and it was normal. Patient states having a paracentesis like this is becoming a very common occurrence. Patient also has a history of A. fib, he is on Coumadin, COPD, ascites. He states he takes all his medication as prescribed. Patient denies EtOH consumption. Pain Scale: 10 - Related Data Home Medications Medication Instructions Recorded Confirmed Pregabalin [Lyrica] 200 mg PO TID 11/09/17 03/01/18 Ferrous Sulfate [Iron] 325 mg PO DAILY 11/10/17 03/01/18 Furosemide [Lasix] 40 mg PO DAILY 02/06/18 03/01/18 Spironolactone [Aldactone] 200 mg PO DAILY 02/06/18 03/01/18 Tiotropium [place] [Spiriva 2 puff IH DAILY 02/06/18 03/01/18 Respimat] Warfarin Sodium 4 mg PO DAILY 02/06/18 03/01/18 Lactulose [Enulose] 10 gm PO TID 02/17/18 03/01/18 Previous Rx's Medication Instructions Recorded Allopurinol [Zyloprim 300 MG] 300 mg PO DAILY tablet 10/24/16 Digoxin [Lanoxin] 0.25 mg PO DAILY tablet 10/24/16 Levothyroxine [Synthroid] 50 mcg PO 0630 tablet 10/24/16 Diltiazem CD (24hr) [Cardizem CD] 120 mg PO QPM #30 cap.er.24h 11/13/17 Propranolol [Inderal] 20 mg PO BID #60 tablet 11/13/17 Allergies Allergy/AdvReac Type Severity Reaction Status Date / Time tramadol AdvReac Itching Verified 01/15/18 16:18 Abdominal Pain PMH - Past Medical History Medical history: Reports: atrial fibrillation, cirrhosis, COPD, DVT, hypertension, other Male Surgical History: Reports: other Psychiatric history: Reports: no psych history - Social History Smoking status: Former smoker Alcohol use: Reports: none Drug use: Reports: none Physical Exam - General General appearance: alert Course Course Narrative: Chronically ill, nontoxic-appearing male in moderate amount distress due to pain. Abdomen is grossly distended, bowel sounds are normal, tenderness is diffuse however it is all radiation from the right upper quadrant which is exquisitely tender. Patient with chronic bilateral lower extremity edema that is unchanged. Patient is afebrile, non-tachycardic, not hypoxic. Review detergents patient was recently admitted on 02/16/18 for the same complaints, there he received a paracentesis for ultrasound. Patient most recently CT of the abdomen and pelvis on February 08 which showed cirrhosis, splenomegaly and recurrent portal hypertension. Patient states no new symptoms. Patient had a TTE in October 2017 showed an EF of 60 665%, he does have some moderately severe aortic stenosis. For this visit patient labs are unremarkable and at his baseline, his INR is 1.2. Platelet this time is for admission to the hospital for paracentesis tomorrow. Patient and family are agreeable plan of care. Doug hospitalist at this time. - Reevaluation(s) Reevaluation #1: Case reviewed with hospitalist Dr. Espino, excepting patient for admission to hospitalist for ascites, most likely need paracentesis in the morning. Family and patient are agreeable to plan of care. Patient is remaining stable, afebrile, nontoxic, not hypoxic. We will transition care to hospitalist team at this time. Time: 04:37 Vital Signs Temperature 97.5 F L 03/01/18 01:02 Pulse Rate 79 03/01/18 01:02 Respiratory Rate 18 03/01/18 01:02 Blood Pressure 107/67 03/01/18 01:02 O2 Sat by Pulse Oximetry 100 03/01/18 01:02 Temperature 96.8 F L 03/01/18 20:46 Pulse Rate 67 03/01/18 20:46 Respiratory Rate 18 03/01/18 20:46 Blood Pressure 107/68 03/01/18 20:46 O2 Sat by Pulse Oximetry 90 03/01/18 20:46 Oxygen Delivery Oxygen Delivery Room Air Abdominal Pain - Lab Data Result diagrams: 03/01/18 01:59 03/01/18 01:59 Lab Results 03/01/18 03/01/18 03/01/18 Range/Units 01:59 01:59 01:59 WBC 5.5 (4.3-11.1) K/mcL RBC 4.13 L (4.19-5.50) M/mcL Hgb 9.7 L (12.9-16.9) g/dL Hct 32.4 L (37.5-50.1) % MCV 78.5 L (83.0-100.0) fL MCH 23.5 L (28.0-33.3) pg MCHC 29.9 L (31.6-35.5) g/dL RDW 21.6 H (11.5-14.5) % Plt Count 195 (140-400) K/mcL MPV 10.4 (9.4-12.4) fL Immature Gran % 0.4 (0-4) % Seg Neutrophils % 75.8 % Lymphocytes % 9.2 % Monocytes % 11.7 % Eosinophils % 2.4 % Basophils % 0.5 % Neutrophils # 4.1 (1.6-8.9) K/mcL Lymphocytes # 0.5 L (0.6-4.6) K/mcL Monocytes # 0.6 (0.0-1.3) K/mcL Eosinophils # 0.1 (0.0-0.6) K/mcL Basophils # 0.0 (0.0-0.2) K/mcL PT 13.9 H (9.4-12.1) Seconds INR 1.2 APTT 31.2 (26.0-36.0) Seconds Sodium 132 L (136-145) mEq/L Potassium 4.8 (3.5-5.1) mEq/L Chloride 107 (98-107) mEq/L Carbon Dioxide 19 L (23-29) mEq/L BUN 25 H (8-23) mg/dL Creatinine 0.92 (0.70-1.30) mg/dL Est GFR ( Amer) > 60 (> 60) Est GFR (Non-Af Amer) > 60 (> 60) BUN/Creatinine Ratio 27 H (6-26) Glucose 114 H (70-105) mg/dL Calculated Osmolality 279 L (280-300) Calcium 9.6 (8.6-10.3) mg/dL Total Bilirubin 2.1 H (0.3-1.0) mg/dL Direct Bilirubin 0.6 H (0.0-0.2) mg/dL Indirect Bilirubin 1.5 H (0.0-1.2) mg/dL AST 17 (13-39) Units/L ALT 9 (7-52) Units/L Alkaline Phosphatase 140 H (34-104) Units/L Serum Total Protein 7.4 (6.4-8.9) g/dL Albumin 3.9 (3.5-5.7) g/dL Globulin 3.5 (2.4-3.5) g/dL Albumin/Globulin Ratio 1.1 (1.1-2.2) Lipase 7 L (11-82) Units/L Urine Color (Yellow) Urine Clarity (Clear) Urine pH (5.0-8.0) pH Units Ur Specific [place] (1.010-1.025) Urine Protein (Neg-Trace) mg/dL Urine Glucose (UA) (Normal) mg/dL Urine Ketones (Negative) mg/dL Urine Blood (Negative) Urine Nitrite (Negative) Urine Bilirubin (Negative) Urine Urobilinogen (Normal) mg/dL Ur Leukocyte Esterase (Negative) Ur Culture Indicated? (NO) 03/01/18 Range/Units 04:09 WBC (4.3-11.1) K/mcL RBC (4.19-5.50) M/mcL Hgb (12.9-16.9) g/dL Hct (37.5-50.1) % MCV (83.0-100.0) fL MCH (28.0-33.3) pg MCHC (31.6-35.5) g/dL RDW (11.5-14.5) % Plt Count (140-400) K/mcL MPV (9.4-12.4) fL Immature Gran % (0-4) % Seg Neutrophils % % Lymphocytes % % Monocytes % % Eosinophils % % Basophils % % Neutrophils # (1.6-8.9) K/mcL Lymphocytes # (0.6-4.6) K/mcL Monocytes # (0.0-1.3) K/mcL Eosinophils # (0.0-0.6) K/mcL Basophils # (0.0-0.2) K/mcL PT (9.4-12.1) Seconds INR APTT (26.0-36.0) Seconds Sodium (136-145) mEq/L Potassium (3.5-5.1) mEq/L Chloride (98-107) mEq/L Carbon Dioxide (23-29) mEq/L BUN (8-23) mg/dL Creatinine (0.70-1.30) mg/dL Est GFR ( Amer) (> 60) Est GFR (Non-Af Amer) (> 60) BUN/Creatinine Ratio (6-26) Glucose (70-105) mg/dL Calculated Osmolality (280-300) Calcium (8.6-10.3) mg/dL Total Bilirubin (0.3-1.0) mg/dL Direct Bilirubin (0.0-0.2) mg/dL Indirect Bilirubin (0.0-1.2) mg/dL AST (13-39) Units/L ALT (7-52) Units/L Alkaline Phosphatase (34-104) Units/L Serum Total Protein (6.4-8.9) g/dL Albumin (3.5-5.7) g/dL Globulin (2.4-3.5) g/dL Albumin/Globulin Ratio (1.1-2.2) Lipase (11-82) Units/L Urine Color Yellow (Yellow) Urine Clarity Clear (Clear) Urine pH 5.5 (5.0-8.0) pH Units Ur Specific [place] 1.020 (1.010-1.025) Urine Protein Trace (Neg-Trace) mg/dL Urine Glucose (UA) Normal (Normal) mg/dL Urine Ketones Negative (Negative) mg/dL Urine Blood Negative (Negative) Urine Nitrite Negative (Negative) Urine Bilirubin Small H (Negative) Urine Urobilinogen Normal (Normal) mg/dL Ur Leukocyte Esterase Negative (Negative) Ur Culture Indicated? NO (NO)
[2018-03-01 02:10] LABS: Basophils % 0.5 %; Eosinophils # 0.1 K/mcL (0.0-0.6); Eosinophils % 2.4 %; Hematocrit 32.4 % (37.5-50.1); Hemoglobin 9.7 g/dL (12.9-16.9); Immature Granulocytes % 0.4 % (0-4); Lymphocytes # 0.5 K/mcL (0.6-4.6); Lymphocytes % 9.2 %; Mean Corpuscular HGB Conc 29.9 g/dL (31.6-35.5); Mean Corpuscular Hemoglobin 23.5 pg (28.0-33.3); Mean Corpuscular Volume 78.5 fL (83.0-100.0); Mean Platelet Volume 10.4 fL (9.4-12.4); Monocytes # 0.6 K/mcL (0.0-1.3); Monocytes % 11.7 %; Neutrophils # 4.1 K/mcL (1.6-8.9); Platelet Count 195 K/mcL (140-400); Red Blood Count 4.13 M/mcL (4.19-5.50); Red Cell Distribution Width 21.6 % (11.5-14.5); Segmented Neutrophils % 75.8 %
[2018-03-01 02:18] LABS: INR 1.2; Prothrombin Time 13.9 Seconds (9.4-12.1)
[2018-03-01 02:21] LABS: Activated Partial Thrombo Time 31.2 Seconds (26.0-36.0)
[2018-03-01] MEDS ORDERED: *HR* OxyCODONE/APAP 10/325 TABLET PO ONE (02:22)
[2018-03-01 02:31] LABS: Alanine Aminotransferase 9 Units/L (7-52); Albumin 3.9 g/dL (3.5-5.7); Albumin/Globulin Ratio 1.1 (1.1-2.2); Alkaline Phosphatase 140 Units/L (34-104); Aspartate Amino Transferase 17 Units/L (13-39); BUN/Creatinine Ratio 27 (6-26); Bilirubin,Direct 0.6 mg/dL (0.0-0.2); Bilirubin,Indirect 1.5 mg/dL (0.0-1.2); Bilirubin,Total 2.1 mg/dL (0.3-1.0); Blood Urea Nitrogen 25 mg/dL (8-23); Calcium 9.6 mg/dL (8.6-10.3); Carbon Dioxide 19 mEq/L (23-29); Chloride 107 mEq/L (98-107); Globulin 3.5 g/dL (2.4-3.5); Glucose 114 mg/dL (70-105); Lipase 7 Units/L (11-82); Osmolality,Calculated 279 (280-300); Potassium 4.8 mEq/L (3.5-5.1); Sodium 132 mEq/L (136-145); Total Protein 7.4 g/dL (6.4-8.9); eGFR For Non-African Americans > 60 (> 60)
[2018-03-01 04:20] LABS: Bilirubin,Urine Small (Negative); Blood,Urine Negative (Negative); Clarity,Urine Clear (Clear); Color,Urine Yellow (Yellow); Glucose,Urine (UA) Normal (Normal); Ketones,Urine Negative (Negative); Leukocyte Esterase,Urine Negative (Negative); Nitrite,Urine Negative (Negative); PH,Urine 5.5 pH Units (5.0-8.0); Protein,Urine Trace mg/dL (Neg-Trace); Urobilinogen,Urine Normal (Normal)
[2018-03-01] MEDS ORDERED: *HR* FentaNYL (PF) 100 MCG/2 ML VIAL IVP ONE (04:39)
--- NOTE | 2018-03-01 04:42 | Emergency Department Note ---
Disposition Clinical Impression: Ascites Qualifiers: Ascites type: other type Qualified Code(s): R18.8 - Other ascites Disposition: Admitted As Inpatient Condition: Good General Adult HPI - General Chief complaint: ED Abdominal Pain Stated complaint: ABD pain/ swelling Time Seen by Provider: 03/01/18 01:37 Source: patient Mode of arrival: private vehicle Limitations: no limitations Nursing Notes Reviewed: Yes Vital Signs Reviewed: Yes - History of Present Illness Pain Scale: 10 - Related Data Home Medications Medication Instructions Recorded Confirmed Pregabalin [Lyrica] 200 mg PO TID 11/09/17 02/17/18 Ferrous Sulfate [Iron] 325 mg PO DAILY 11/10/17 02/17/18 Furosemide [Lasix] 40 mg PO DAILY 02/06/18 02/17/18 Spironolactone [Aldactone] 200 mg PO DAILY 02/06/18 02/17/18 Tiotropium [place] [Spiriva 2 puff IH DAILY 02/06/18 02/17/18 Respimat] Warfarin Sodium 4 mg PO DAILY 02/06/18 02/17/18 Lactulose [Enulose] 10 gm PO TID 02/17/18 02/17/18 Previous Rx's Medication Instructions Recorded Allopurinol [Zyloprim 300 MG] 300 mg PO DAILY tablet 10/24/16 Digoxin [Lanoxin] 0.25 mg PO DAILY tablet 10/24/16 Levothyroxine [Synthroid] 50 mcg PO 0630 tablet 10/24/16 Diltiazem CD (24hr) [Cardizem CD] 120 mg PO QPM #30 cap.er.24h 11/13/17 Propranolol [Inderal] 20 mg PO BID #60 tablet 11/13/17 Ciprofloxacin [Cipro] 500 mg PO DAILY 5 Days #5 tablet 02/18/18 OxyCODONE/APAP 10/325 [Percocet 1 each PO Q8HR PRN 2 Days #6 tablet 02/18/18 10/325 MG] Allergies Allergy/AdvReac Type Severity Reaction Status Date / Time tramadol AdvReac Itching Verified 01/15/18 16:18 Past Medical History - Past Medical History Medical history: Reports: atrial fibrillation, cirrhosis, COPD, DVT, hypertension, other Surgical history: Reports: herniorrhaphy, orthopedic, other, other Psychiatric history: Reports: no psych history - Social History Smoking Status: Former smoker Smokeless Tobacco Status: No Alcohol use: Reports: none Drug use: Reports: none Physical Exam - General Limitations: no limitations General appearance: alert Course Vital Signs Temperature 97.5 F L 03/01/18 01:02 Pulse Rate 79 03/01/18 01:02 Respiratory Rate 18 03/01/18 01:02 Blood Pressure 107/67 03/01/18 01:02 O2 Sat by Pulse Oximetry 100 03/01/18 01:02 Temperature 97.5 F L 03/01/18 01:02 Pulse Rate 67 03/01/18 04:11 Respiratory Rate 15 03/01/18 04:11 Blood Pressure 112/65 03/01/18 04:11 O2 Sat by Pulse Oximetry 100 03/01/18 04:11 Oxygen Delivery Oxygen Delivery Room Air Medical Decision Making - Medical Records Medical records reviewed: Yes I reviewed the patient's medical records. - Lab Data Lab results reviewed: Yes I reviewed the patient's lab results. Result diagrams: 03/01/18 01:59 03/01/18 01:59 Lab Results 03/01/18 03/01/18 03/01/18 Range/Units 01:59 01:59 01:59 WBC 5.5 (4.3-11.1) K/mcL RBC 4.13 L (4.19-5.50) M/mcL Hgb 9.7 L (12.9-16.9) g/dL Hct 32.4 L (37.5-50.1) % MCV 78.5 L (83.0-100.0) fL MCH 23.5 L (28.0-33.3) pg MCHC 29.9 L (31.6-35.5) g/dL RDW 21.6 H (11.5-14.5) % Plt Count 195 (140-400) K/mcL MPV 10.4 (9.4-12.4) fL Immature Gran % 0.4 (0-4) % Seg Neutrophils % 75.8 % Lymphocytes % 9.2 % Monocytes % 11.7 % Eosinophils % 2.4 % Basophils % 0.5 % Neutrophils # 4.1 (1.6-8.9) K/mcL Lymphocytes # 0.5 L (0.6-4.6) K/mcL Monocytes # 0.6 (0.0-1.3) K/mcL Eosinophils # 0.1 (0.0-0.6) K/mcL Basophils # 0.0 (0.0-0.2) K/mcL PT 13.9 H (9.4-12.1) Seconds INR 1.2 APTT 31.2 (26.0-36.0) Seconds Sodium 132 L (136-145) mEq/L Potassium 4.8 (3.5-5.1) mEq/L Chloride 107 (98-107) mEq/L Carbon Dioxide 19 L (23-29) mEq/L BUN 25 H (8-23) mg/dL Creatinine 0.92 (0.70-1.30) mg/dL Est GFR ( Amer) > 60 (> 60) Est GFR (Non-Af Amer) > 60 (> 60) BUN/Creatinine Ratio 27 H (6-26) Glucose 114 H (70-105) mg/dL Calculated Osmolality 279 L (280-300) Calcium 9.6 (8.6-10.3) mg/dL Total Bilirubin 2.1 H (0.3-1.0) mg/dL Direct Bilirubin 0.6 H (0.0-0.2) mg/dL Indirect Bilirubin 1.5 H (0.0-1.2) mg/dL AST 17 (13-39) Units/L ALT 9 (7-52) Units/L Alkaline Phosphatase 140 H (34-104) Units/L Serum Total Protein 7.4 (6.4-8.9) g/dL Albumin 3.9 (3.5-5.7) g/dL Globulin 3.5 (2.4-3.5) g/dL Albumin/Globulin Ratio 1.1 (1.1-2.2) Lipase 7 L (11-82) Units/L Urine Color (Yellow) Urine Clarity (Clear) Urine pH (5.0-8.0) pH Units Ur Specific [place] (1.010-1.025) Urine Protein (Neg-Trace) mg/dL Urine Glucose (UA) (Normal) mg/dL Urine Ketones (Negative) mg/dL Urine Blood (Negative) Urine Nitrite (Negative) Urine Bilirubin (Negative) Urine Urobilinogen (Normal) mg/dL Ur Leukocyte Esterase (Negative) Ur Culture Indicated? (NO) 03/01/18 Range/Units 04:09 WBC (4.3-11.1) K/mcL RBC (4.19-5.50) M/mcL Hgb (12.9-16.9) g/dL Hct (37.5-50.1) % MCV (83.0-100.0) fL MCH (28.0-33.3) pg MCHC (31.6-35.5) g/dL RDW (11.5-14.5) % Plt Count (140-400) K/mcL MPV (9.4-12.4) fL Immature Gran % (0-4) % Seg Neutrophils % % Lymphocytes % % Monocytes % % Eosinophils % % Basophils % % Neutrophils # (1.6-8.9) K/mcL Lymphocytes # (0.6-4.6) K/mcL Monocytes # (0.0-1.3) K/mcL Eosinophils # (0.0-0.6) K/mcL Basophils # (0.0-0.2) K/mcL PT (9.4-12.1) Seconds INR APTT (26.0-36.0) Seconds Sodium (136-145) mEq/L Potassium (3.5-5.1) mEq/L Chloride (98-107) mEq/L Carbon Dioxide (23-29) mEq/L BUN (8-23) mg/dL Creatinine (0.70-1.30) mg/dL Est GFR ( Amer) (> 60) Est GFR (Non-Af Amer) (> 60) BUN/Creatinine Ratio (6-26) Glucose (70-105) mg/dL Calculated Osmolality (280-300) Calcium (8.6-10.3) mg/dL Total Bilirubin (0.3-1.0) mg/dL Direct Bilirubin (0.0-0.2) mg/dL Indirect Bilirubin (0.0-1.2) mg/dL AST (13-39) Units/L ALT (7-52) Units/L Alkaline Phosphatase (34-104) Units/L Serum Total Protein (6.4-8.9) g/dL Albumin (3.5-5.7) g/dL Globulin (2.4-3.5) g/dL Albumin/Globulin Ratio (1.1-2.2) Lipase (11-82) Units/L Urine Color Yellow (Yellow) Urine Clarity Clear (Clear) Urine pH 5.5 (5.0-8.0) pH Units Ur Specific [place] 1.020 (1.010-1.025) Urine Protein Trace (Neg-Trace) mg/dL Urine Glucose (UA) Normal (Normal) mg/dL Urine Ketones Negative (Negative) mg/dL Urine Blood Negative (Negative) Urine Nitrite Negative (Negative) Urine Bilirubin Small H (Negative) Urine Urobilinogen Normal (Normal) mg/dL Ur Leukocyte Esterase Negative (Negative) Ur Culture Indicated? NO (NO) Attestation Statement - Attestation Attestation: I, Jonathon Kendrick MD, personally evaluated this patient and discussed their management with the midlevel provicer, PAC/BANDER OPERATOR. I reviewed the midlevel provider 's note and agree with the documented findings, medical decision making, and plan of care. 63-year-old male presents complaining of increased abdominal distention and discomfort from his ascites. Patient had paracentesis with 10 L removed about 2 weeks ago. reports that over the past month he has had 30 L removed. On examination patient is a well-developed obese male in no acute distress. He is alert and oriented 3. There is no cyanosis or diaphoresis. Breath sounds are equal bilaterally. Heart regular. Abdomen is markedly distended with ascites. Bowel sounds present. Mild diffuse tenderness. Labs reviewed. The hospitalist, Dr. Espino, was consulted and accepted admission of the patient.
--- NOTE | 2018-03-01 05:21 | Internal Med History&Physical ---
<Freddy Mora - Last Filed: 03/01/18 05:19> Date of Encounter: 03/01/18 Time of Encounter: 05:19 Internal Medicine - H&P: HPI Chief complaint: Abdominal distention Admitted From: Home Plans for Post Hospital Care: Home History of present illness: Mr. Lomeli is a 63 year old male with history of cirrhosis secondary to alcohol abuse presents with abdominal distention. Patient reports an last month he has had multiple paracentesis resulting in removal of 30 L of fluid. He is followed by Dr. Landa however he was not set up for outpatient paracentesis. His last paracentesis was 2 weeks ago when he was admitted in the hospital and 10 L were removed. Patient reports severe abdominal pressure. He denies fevers, chills, chest pain, shortness of breath, decreased urine production, constipation. Patient is being admitted for paracentesis. Past Med Surg Social Fam HX - Past Medical History Medical history: atrial fibrillation, cirrhosis, COPD, DVT, hypertension, other Additional medical history: Gout Psychiatric history: no psych history - Past Surgical History Surgical History: herniorrhaphy, orthopedic, other, other Additional surgical history: cirrhosis, carpal tunnel surgery, herniated disc repair, left arm surgery, b/l knees, r wrist - Social History Smoking Status: Former smoker Smokeless Tobacco Status: No Alcohol use: none Drug use: none - Family History Father Hx Family Endocrine Disorder: Yes Internal Medicine - H&P: Meds Allopurinol [Zyloprim 300 MG] 300 mg PO DAILY tablet 10/24/16 [Rx] Digoxin [Lanoxin] 0.25 mg PO DAILY tablet 10/24/16 [Rx] Levothyroxine [Synthroid] 50 mcg PO 0630 tablet 10/24/16 [Rx] Pregabalin [Lyrica] 200 mg PO TID 11/09/17 [History] Ferrous Sulfate [Iron] 325 mg PO DAILY 11/10/17 [History] Diltiazem CD (24hr) [Cardizem CD] 120 mg PO QPM #30 cap.er.24h 11/13/17 [Rx] Propranolol [Inderal] 20 mg PO BID #60 tablet 11/13/17 [Rx] Furosemide [Lasix] 40 mg PO DAILY 02/06/18 [History] Spironolactone [Aldactone] 200 mg PO DAILY 02/06/18 [History] Tiotropium [place] [Spiriva Respimat] 2 puff IH DAILY 02/06/18 [History] Warfarin Sodium 4 mg PO DAILY 02/06/18 [History] Lactulose [Enulose] 10 gm PO TID 02/17/18 [History] Ciprofloxacin [Cipro] 500 mg PO DAILY 5 Days #5 tablet 02/18/18 [Rx] OxyCODONE/APAP 10/325 [Percocet 10/325 MG] 1 each PO Q8HR PRN 2 Days #6 tablet 02/18/18 [Rx] 3 Allergy/AdvReac Type Severity Reaction Status Date / Time tramadol AdvReac Itching Verified 01/15/18 16:18 All Systems PM: A 10-system review of systems was performed and is negative for pertinent findings except as documented above in the HPI. Review of systems: Constitutional: Denies fever, chills HEENT: Denies headache, trauma, blurry vision, eye discharge, ear pain, ear discharge neck pain, sore throat, rhinorrhea Heart: Denies chest pain palpitations, LE edema Lungs: Denies shortness of breath cough Abdomen: Reports abdominal pain. Denies nausea, vomiting, diarrhea MSK: Denies back pain, falls, joint pain Kidney: Denies dysuria, hematuria Skin: Denies rash, ulcers Neuro: Denies numbness and tingling Psych: denies axniety, depression - Constitutional Vitals: Temp Pulse Resp BP Pulse Ox 97.5 F L 67 15 112/65 100 03/01/18 01:02 03/01/18 04:11 03/01/18 04:11 03/01/18 04:11 03/01/18 04:11 Exam: General: pleasant, moderate distress HEENT: Head atraumatic, normocephalic, EOMI, PERRL, absent ear discharge or trauma, Moist Mucous Membranes, uvula midline Neck: nontender to palpation, absent lymphadenopathy, Cardiovascualr: Regular rate and rhythm with no murmur, absent gallops or rubs, absent pedal edema, radial pulses 2 out of 4 Lungs: Clear to auscultation bilaterally, not in respiratory distress Abdomen: Soft, nontender, severely distended, distant bowel sounds. Skin: warm and dry, absent rash, absent open wounds and nodules MSK: absent clubbing, cyanosis, joints without swelling Neuro: Cranial nerves II through XII intact, UE and LE sensation equal bilaterally, UE and LEstrength 5/5, alert oriented 3, Psych: Mildly anxious, not depressed Internal Med - H&P Results - Labs CBC & Chem 7: 03/01/18 01:59 03/01/18 01:59 - Assessment and plan (1) Anemia Current Visit: Yes Status: Chronic Assessment and plan: Patient has iron deficiency anemia Current hemoglobin is 9.7 and stable Continue iron supplementation. Qualifiers: Anemia type: iron deficiency Iron deficiency anemia type: inadequate dietary iron intake Qualified Code(s): D50.8 - Other iron deficiency anemias (2) DM type 2 (diabetes mellitus, type 2) Current Visit: Yes Status: Chronic Assessment and plan: hx of DM2 A1c 7.2 ada diet SSI ACHS accuchecks Qualifiers: Diabetes mellitus computer terminal operator insulin use: without computer terminal operator use Diabetes mellitus complication status: with skin complications Diabetes mellitus complication detail: with foot ulcer Qualified Code(s): E11.621 - Type 2 diabetes mellitus with foot ulcer; L97.509 - Non-pressure chronic ulcer of other part of unspecified foot with unspecified severity (3) DVT prophylaxis Current Visit: Yes Status: Acute Assessment and plan: heparin SQ (4) Hypothyroidism Current Visit: Yes Status: Chronic Assessment and plan: continue levothyroxine Qualifiers: Hypothyroidism type: unspecified Qualified Code(s): E03.9 - Hypothyroidism , unspecified (5) Cirrhosis of liver with ascites Current Visit: Yes Status: Acute Assessment and plan: MeldNA 17, Child class B massive abdominal distention patient will need urgent paracentesis today Alert oriented 3 Fluid restricted, cardiac, high-protein diet continue lasix, spironolactone, propranolol, lactulose Qualifiers: Hepatic cirrhosis type: alcoholic cirrhosis Qualified Code(s): K70.31 - Alcoholic cirrhosis of liver with ascites - Time Spent With Patient Total time spent is greater than 50% in coordination of care (as documented) at patient's floor/unit and/or counseling patient: <Jing Espino - Last Filed: 03/01/18 06:07> Date of Encounter: 03/01/18 Internal Medicine - H&P: HPI History of present illness: Mr. Lomeli is a 63 year old male All Systems PM: A 10-system review of systems was performed and is negative for pertinent findings except as documented above in the HPI. - Constitutional Vitals: Temp Pulse Resp BP Pulse Ox 97.5 F L 67 15 112/65 100 03/01/18 01:02 03/01/18 04:11 03/01/18 04:11 03/01/18 04:11 03/01/18 04:11 Internal Med - H&P Results - Labs CBC & Chem 7: 03/01/18 01:59 03/01/18 01:59 - Assessment and plan (1) Hypothyroidism Current Visit: Yes Status: Chronic Qualifiers: Hypothyroidism type: unspecified Qualified Code(s): E03.9 - Hypothyroidism , unspecified (2) DM type 2 (diabetes mellitus, type 2) Current Visit: Yes Status: Chronic Qualifiers: Diabetes mellitus detention insulin use: without detention use Diabetes mellitus complication status: with skin complications Diabetes mellitus complication detail: with foot ulcer Qualified Code(s): E11.621 - Type 2 diabetes mellitus with foot ulcer; L97.509 - Non-pressure chronic ulcer of other part of unspecified foot with unspecified severity (3) DVT prophylaxis Current Visit: Yes Status: Acute (4) Anemia Current Visit: Yes Status: Chronic Qualifiers: Anemia type: iron deficiency Iron deficiency anemia type: inadequate dietary iron intake Qualified Code(s): D50.8 - Other iron deficiency anemias (5) Cirrhosis of liver with ascites Current Visit: Yes Status: Acute Qualifiers: Hepatic cirrhosis type: alcoholic cirrhosis Qualified Code(s): K70.31 - Alcoholic cirrhosis of liver with ascites - Time Spent With Patient Total time spent is greater than 50% in coordination of care (as documented) at patient's floor/unit and/or counseling patient: - Attending Attestation 63 year old man with a history of liver cirrhosis who undergoes frequent paracentesis who was plugged in with the GI outpatient clinic during his last discharge for OP paracentesis however he missed an outpatient and is next scheduled for 3 weeks from now. He presents now with increasing abdominal distension leading to difficulty breathing and fatigue. He says he is adherent to his oral diuretics but continues to accumulate fluid. He denies fever and chills. Physical exam remarkable for bitemporal wasting, poor dentition, spider angiomata on skin, distended abdomen but not tense and no peritoneal reaction, 2 -3+ pitting lower extremity edema. Will admit for symptomatic ascites and have a paracentesis performed. Should equally have albumin 25% infusion for large volume anticipated. INR currently 1.2; he states he has run out of warfarin that he was Rx for a.fib. Platelet count wnl. For now advise to hold warfarin; likely high risk of GI bleed given his portal hypertension with possibility of esophageal varices that could potentially be catastrophic if this were to be the case. Risk/benefit of continuation needs to be thoroughly assessed. For now will place on heparin subq for dvt prophylaxis.
[2018-03-01] MEDS ORDERED: Dextrose Gel 15 GM/37.5 ML TUBE PO PRN ×2 (05:31)
[2018-03-01] MEDS ORDERED: D5% in Water 1,000 ML IVC PRN (05:31)
[2018-03-01] MEDS ORDERED: *HR* Dextrose 50 % in Water (Syg) 50 ML SYRINGE IVP PRN (05:31)
[2018-03-01] MEDS: *HR* Heparin 5,000 UNIT/ML VIAL SQ SCH ×2 (06:40→15:40)
[2018-03-01] MEDS ORDERED: Furosemide 40 MG TABLET PO SCH (09:00)
[2018-03-01] MEDS ORDERED: *HR* Digoxin 0.25 MG TABLET PO SCH (09:00)
[2018-03-01] MEDS: Insulin LISPRO 300 UNITS/3 ML VIAL SQ SCH ×3 (09:09→17:19)
[2018-03-01] MEDS: Pregabalin 50 MG CAPSULE PO SCH ×3 (09:53→21:11)
[2018-03-01] MEDS: Lactulose Oral Soln 20 GM/30 ML UDC PO SCH ×3 (09:54→21:11)
[2018-03-01] MEDS: *HR* OxyCODONE/APAP 10/325 TABLET PO PRN ×2 (09:59→20:52)
[2018-03-01] MEDS ORDERED: Tiotropium 18 MCG inhalation IH SCH (10:00)
[2018-03-01] MEDS ORDERED: *HR* HYDROmorphone (PF) 1 MG/ML SYRINGE IVP ONE (13:24)
--- NOTE | 2018-03-01 14:23 | Discharge Summary ---
<Nimesh Marie - Last Filed: 03/01/18 16:59> Date of Encounter: 03/01/18 - Discharge Diagnosis (1) Hypothyroidism Priority: Secondary Status: Chronic Qualifiers: Hypothyroidism type: acquired Qualified Code(s): E03.9 - Hypothyroidism, unspecified (2) DM type 2 (diabetes mellitus, type 2) Priority: Secondary Status: Chronic Qualifiers: Diabetes mellitus technician terminal and repeater insulin use: without technician terminal and repeater use Diabetes mellitus complication status: with skin complications Diabetes mellitus complication detail: with foot ulcer Qualified Code(s): E11.621 - Type 2 diabetes mellitus with foot ulcer; L97.509 - Non-pressure chronic ulcer of other part of unspecified foot with unspecified severity (3) DVT prophylaxis Priority: Secondary Status: Acute (4) Anemia Priority: Secondary Status: Chronic Qualifiers: Anemia type: iron deficiency Iron deficiency anemia type: inadequate dietary iron intake Qualified Code(s): D50.8 - Other iron deficiency anemias (5) Cirrhosis of liver with ascites Priority: Primary Status: Acute Qualifiers: Hepatic cirrhosis type: alcoholic cirrhosis Qualified Code(s): K70.31 - Alcoholic cirrhosis of liver with ascites (6) Atrial fibrillation Priority: Secondary Status: Chronic Qualifiers: Atrial fibrillation type: chronic Qualified Code(s): I48.2 - Chronic atrial fibrillation Hospital course: Mr. Lomeli is a 63 year old male - Time Spent with Patient Total time spent providing and/or coordinating discharge services: - Discharge Medications Home Medications: Allopurinol [Zyloprim 300 MG] 300 mg PO DAILY tablet 10/24/16 [Rx] Digoxin [Lanoxin] 0.25 mg PO DAILY tablet 10/24/16 [Rx] Levothyroxine [Synthroid] 50 mcg PO 0630 tablet 10/24/16 [Rx] Pregabalin [Lyrica] 200 mg PO TID 11/09/17 [History] Ferrous Sulfate [Iron] 325 mg PO DAILY 11/10/17 [History] Diltiazem CD (24hr) [Cardizem CD] 120 mg PO QPM #30 cap.er.24h 11/13/17 [Rx] Propranolol [Inderal] 20 mg PO BID #60 tablet 11/13/17 [Rx] Furosemide [Lasix] 40 mg PO DAILY 02/06/18 [History] Spironolactone [Aldactone] 200 mg PO DAILY 02/06/18 [History] Tiotropium [place] [Spiriva Respimat] 2 puff IH DAILY 02/06/18 [History] Warfarin Sodium 4 mg PO DAILY 02/06/18 [History] Lactulose [Enulose] 10 gm PO TID 02/17/18 [History] Allergies/Adverse Reactions: 3 Allergy/AdvReac Type Severity Reaction Status Date / Time tramadol AdvReac Itching Verified 01/15/18 16:18 Date of admission: 03/01/18 04:53 Primary care physician: Sendy Quan CNP Consults: 03/01/18 06:02 Consult to Brim Pouncer [CONS] Stat Reason for SW Consult: Patient keeps being admittited for paracentesis. He needs to have appointment with IR outpatient scheduled every two weeks. He reports he was unable to have this happen and this is why he is here. - Constitutional Vitals: Temp Pulse Resp BP Pulse Ox 97.4 F L 67 18 105/57 98 03/01/18 16:35 03/01/18 16:35 03/01/18 16:35 03/01/18 16:35 03/01/18 16:35 - Patient Status Disposition: Home, Self-Care Condition: Good - Discharge Instructions Instructions: Ascites (DC) Follow Up With: Tay Landa MD [Partnered Physician] - Sendy Quan CNP [Primary Care Provider] - 03/09/18 10:00 am (Please follow up as schedule Greta Madrid) Additional Instructions: Pt has appt with Dr. Landa for Mar.17 per patient and . He is planning for outpatient paracentesis, patient encouraged to pursue that with high priority. - Attending Attestation I examined this patient and my medical decision-making was reviewed with the Resident Physician on 03/01/18. I agree with the documented findings, disposition and treatment plan as described except to the extent set forth below. Mr Lomeli has been in observation for ascites. He had paracentesis today and has received albumin post procedure. He is afebrile and ready for discharge home. Exam alert Comfortable Not tachycardic No wheeze Plan D/C home today. <Wicho Sunshine - Last Filed: 03/01/18 19:35> - NOTES TO OUTPATIENT PROVIDER Notes to Outpatient Provider: Plan for outpatient follow-up with Dr. Landa, Mar 17 Orders not resulted at time of discharge: Pending orders 03/01/18 13:07 IR paracentesis ultrasound [IR] Routine Date of Encounter: 03/01/18 Time of Encounter: 10:00 - Discharge Diagnosis (1) Cirrhosis of liver with ascites Priority: Primary Status: Acute Qualifiers: Hepatic cirrhosis type: alcoholic cirrhosis Qualified Code(s): K70.31 - Alcoholic cirrhosis of liver with ascites (2) Hypothyroidism Priority: Secondary Status: Chronic Qualifiers: Hypothyroidism type: acquired Qualified Code(s): E03.9 - Hypothyroidism, unspecified (3) DM type 2 (diabetes mellitus, type 2) Priority: Secondary Status: Chronic Qualifiers: Diabetes mellitus technician terminal and repeater insulin use: without snf use Diabetes mellitus complication status: with skin complications Diabetes mellitus complication detail: with foot ulcer Qualified Code(s): E11.621 - Type 2 diabetes mellitus with foot ulcer; L97.509 - Non-pressure chronic ulcer of other part of unspecified foot with unspecified severity (4) Anemia Priority: Secondary Status: Chronic Qualifiers: Anemia type: iron deficiency Iron deficiency anemia type: inadequate dietary iron intake Qualified Code(s): D50.8 - Other iron deficiency anemias (5) DVT prophylaxis Priority: Secondary Status: Acute Hospital course: Mr. Lomeli is a 63 year old male with history of cirrhosis secondary to alcohol abuse who presented with abdominal distention AM 03/01. Patient reports an last month he has had multiple paracentesis resulting in removal of 30 L of fluid. He is followed by Dr. Landa however he was not set up for outpatient paracentesis. His last paracentesis was 2 weeks ago when he was admitted in the hospital and 10 L were removed. Patient reports severe abdominal pressure. Patient was treated with paracentesis in the afternoon, with 10.6L removed. He underwent albumin infusion (50g). He plans to follow-up outpatient with Dr. Landa on March 17. Discharge discussed with: patient, family - Time Spent with Patient Total time spent providing and/or coordinating discharge services: Greater than 30 minutes Date of admission: 03/01/18 04:53 Primary care physician: Sendy Quan CNP Consults: 03/01/18 06:02 Consult to Brim Pouncer [CONS] Stat Reason for SW Consult: Patient keeps being admittited for paracentesis. He needs to have appointment with IR outpatient scheduled every two weeks. He reports he was unable to have this happen and this is why he is here. - Constitutional Vitals: Temp Pulse Resp BP Pulse Ox 97.4 F L 71 18 114/75 100 03/01/18 11:49 03/01/18 11:49 03/01/18 11:49 03/01/18 14:21 03/01/18 11:49 Exam: General: pleasant, moderate distress HEENT: Head atraumatic, normocephalic, EOMI Neck: nontender to palpation, absent lymphadenopathy, Cardiovascualr: Regular rate and rhythm with no murmur, absent gallops or rubs, absent pedal edema (presence of compression stockings), radial pulses 2 out of 4 Lungs: Clear to auscultation bilaterally, not in respiratory distress Abdomen: Soft, nontender, distended abdomen, distant bowel sounds. Skin: warm and dry, absent rash, absent open wounds and nodules MSK: absent clubbing, cyanosis, joints without swelling Neuro: Cranial nerves II through XII intact, UE and LE sensation equal bilaterally, UE and LEstrength 5/5, alert oriented 3, Psych: Mildly anxious, not depressed - Patient Status Functional capacity at discharge: independent ambulation Overall status at discharge: patient is progressing back to baseline - Diet and Activity Activity: increase activity as tolerated Diet: other (as determined with your Dinkey Skinner appt 03/17)
--- NOTE | 2018-03-01 15:36 | IR Procedure Note ---
Date of procedure: 03/01/18 Consent Obtained: Verbal consent, Written consent Timeout: Correct patient and procedure verified, Correct site verified, Time out performed, Skin prep completed Local anesthetic: Lidocaine 1% Procedure Performed: paracentesis Was there an assistant teacher primary present: No Site/Technique: left abdomen Results/Findings: 10.6 L of straw colored fluid removed Estimated blood loss (cc): 0 Complications: None; Tolerated procedure well Post Procedure Treatment Plan: none Specimen: none
[2018-03-01] MEDS: Albumin 25% 25gram/100mL 25 GM/100 ML IV.SOLN IVC SCH ×2 (17:20→18:46)
[2018-03-01] MEDS ORDERED: Warfarin perPT PO PRN (18:00)
[2018-03-01] MEDS ORDERED: Diltiazem CD (24hr) 120 MG CAPSULE PO SCH (18:00)
[2018-03-01 20:47] VITALS: BP 107/68
[2018-03-01] MEDS ORDERED: Insulin LISPRO 300 UNITS/3 ML VIAL SQ SCH (21:00)
[2018-03-02] MEDS ORDERED: Tiotropium 18 MCG inhalation IH SCH (10:00)
--- NOTE | 2018-03-02 17:32 | Electrocardiograph Report ---
[place] [id number] Test Date: 2018-03-01 Pat Name: Catairno Lomeli Department: EXAM10 Room: 2A47 Gender: M Investigation Manager: : 1955 Requested By: Nimesh Marie Order Number: [id number] Reading MD: Cecilia Barry Measurements Intervals Spring Rate: 79 P: SD: QRS: 115 QRSD: 106 T: -52 QT: 353 QTc: 405 Interpretive Statements Atrial fibrillation Right axis deviation Borderline low voltage, extremity leads Electronically Signed On 03-02-2018 17:30:51 EDT by Cecilia Barry
== END 2018-03-01 21:30 | disposition home or self-care (01) ==
LOC: 2ANU 00:46 → EMEROOARM 00:46 → SUATTDRO 04:53 → 2ANU 05:48
PROVIDERS: ADMIT Internal Medicine; ATTEND Internal Medicine

== ENCOUNTER 2018-04-19 10:46 | Inpatient (IN) ==
[2018-04-19] MEDS ORDERED: Naloxone 0.4 MG/ML INJ IVP PRN (14:31)
[2018-04-19] MEDS: Albumin 25% 25gram/100mL 25 GM/100 ML IV.SOLN IVPB SCH ×4 (15:12→20:45)
[2018-04-19] MEDS: 0.9 % Sodium Chloride 1,000 ML IVC SCH (15:19)
--- NOTE | 2018-04-19 15:22 | Internal Med History&Physical ---
<Modesto Zimmerman S - Last Filed: 04/19/18 15:16> Date of Encounter: 04/19/18 Time of Encounter: 15:16 Internal Medicine - H&P: HPI Chief complaint: Altered mental status Admitted From: Hospital to Hospital Transfer Plans for Post Hospital Care: Home History of present illness: Mr. Lomeli is a 63 year old male with PMH of stage 3 cirrhosis, hx of DVT on Coumadin, liver failure, a fib, COPD, HTN. He was transferred from [facility] today with altered mental status. At the ER, he was found to have a potassium of 5.7. EKG showed Atrial fibrillation, HR 61, QT 442, no ST segment changes. According to records from [facility], the pt didn't deny any fever, chills, cough, diarrhea, melena, changes in appetite, hematemesis. The patient's is present and gives no additional history. Paracentesis was performed at bedside and 10L of fluid was taken off. Fluid was sent to lab for analysis. GI recommended 50g of albumin per 3.5 L taken off. Past Med Surg Social Fam HX - Past Medical History Medical history: atrial fibrillation, cirrhosis, COPD, DVT, hypertension, other Additional medical history: Gout Psychiatric history: no psych history - Past Surgical History Surgical History: herniorrhaphy, orthopedic, other, other Additional surgical history: cirrhosis, carpal tunnel surgery, herniated disc repair, left arm surgery, b/l knees, r wrist - Social History Smoking Status: Former smoker Smokeless Tobacco Status: No Alcohol use: none Drug use: none - Family History Father Hx Family Endocrine Disorder: Yes Internal Medicine - H&P: Meds RX: Allopurinol [Zyloprim 300 MG] 300 mg PO DAILY tablet 10/24/16 [Rx] RX: Digoxin [Lanoxin] 0.25 mg PO DAILY tablet 10/24/16 [Rx] RX: Levothyroxine [Synthroid] 50 mcg PO 0630 tablet 10/24/16 [Rx] RX: Pregabalin [Lyrica] 200 mg PO TID 11/09/17 [History] RX: Ferrous Sulfate [Iron] 325 mg PO DAILY 11/10/17 [History] RX: Diltiazem CD (24hr) [Cardizem CD] 120 mg PO QPM #30 cap.er.24h 11/13/17 [Rx] RX: Propranolol [Inderal] 20 mg PO BID #60 tablet 11/13/17 [Rx] RX: Furosemide [Lasix] 40 mg PO DAILY 02/06/18 [History] RX: Spironolactone [Aldactone] 200 mg PO DAILY 02/06/18 [History] RX: Tiotropium [place] [Spiriva Respimat] 2 puff IH DAILY 02/06/18 [History] RX: Warfarin Sodium 4 mg PO DAILY 02/06/18 [History] RX: Lactulose [Enulose] 10 gm PO TID 02/17/18 [History] Allergy/AdvReac Type Severity Reaction Status Date / Time tramadol AdvReac Itching Verified 01/15/18 16:18 ROS unobtainable: due to mental status All Systems PM: A 10-system review of systems was performed and is negative for pertinent findings except as documented above in the HPI. - Constitutional Vitals: Temp Pulse Resp BP Pulse Ox 97.6 F 72 10 96/59 95 04/19/18 13:00 04/19/18 14:00 04/19/18 14:00 04/19/18 14:00 04/19/18 14:33 Exam: General - laying in bed, obtunded, AOx0 HEENT - jaudiced face, normocephalic atruamtic, dry mucus membranes, edentulous Cardio - irreularly irregular, normal rate Lungs - CTAB, no wheeze/rhonchi Chest - gynecomastia Abd - obese, distended, caput medusae present, umbilical hernia present, no rebound/guarding Skin - jaundiced throughout Extremities - B/L stasis dermatitis Neuro - no FND Psych - pt is unable to answer question, not mentating properly - Assessment and plan (1) Hepatic encephalopathy Current Visit: Yes Status: Acute Assessment and plan: Need to rule out SBP in the setting of pt with hx of ESLD and AMS - pt presented with AMS this afternoon Paracentesis performed, 10L of fluid was taken off Pt is high risk for hepatorenal syndrome - BUN 66, creatinine 1.97 - baseline creatinine appears to be around 0.7 - 0.8 MELD score of 20 Child Dunn Class B Plan: - LDH pending - rocephin 2g daily, got one dose while at [place] - 125cc/hr 0.9% NS x 2 bags - GI consulted 50g of albumin given per 3.5L taken off of fluid, for a total of 150g - NPO currently - Albumin, cell count, culture, LDH of peritoneal fluid - cath placed - measure I&O's - continue Aldactone, lasix and propanolol - continue lactulose for a total of 3 bowel movements per day - one time rectal suppository now - pt needs to be on high protein diet once able to eat - continue to monitor CBC, BMP (2) Iron deficiency Current Visit: No Status: Chronic Assessment and plan: On Ferrous sulfate - chronic - continue home med (3) Hypothyroid Current Visit: No Status: Chronic Assessment and plan: On synthroid - chronic, continue home med Qualifiers: Hypothyroidism type: unspecified Qualified Code(s): E03.9 - Hypothyroidism, unspecified (4) Atrial fibrillation Current Visit: No Status: Chronic Assessment and plan: Chronic - on Coumadin - on cardizem - on digoxin Qualifiers: Atrial fibrillation type: chronic Qualified Code(s): I48.2 - Chronic atrial fibrillation (5) Gout Current Visit: No Status: Chronic Assessment and plan: On allopurinal - chronic - continue home med Qualifiers: Gout site: unspecified site Gout etiology: unspecified cause Chronicity: chronic Presence of tophus: without tophus Qualified Code(s): M1A.9XX0 - Chronic gout, unspecified, without tophus (tophi) (6) Chronic venous stasis dermatitis of both lower extremities Current Visit: No Status: Chronic Assessment and plan: Chronic (7) Obese Current Visit: No Status: Acute Assessment and plan: BMI 36.5 - lifestyle chanegs Qualifiers: Obesity type: due to excess calories Body mass index: BMI 39.0-39.9 Qualified Code(s): E66.01 - Morbid (severe) obesity due to excess calories; Z68.39 - Body mass index (BMI) 39.0-39.9, adult (8) Altered mental status Current Visit: No Status: Acute Assessment and plan: Secondary to hepatic encephalopathy - see SBP Qualifiers: Altered mental status type: delirium Qualified Code(s): R41.0 - Disorien tation, unspecified (9) Hyperkalemia Current Visit: Yes Status: Acute Assessment and plan: Potassium of 5.7 - given lactulose - will check in the morning (10) History of cirrhosis Current Visit: No Status: Chronic Assessment and plan: Chronic - see plan as above (11) Anemia Current Visit: No Status: Chronic Assessment and plan: Hemoglobin 8.5 - H&H stable, appears to be at baseline - continue to monitor Qualifiers: Anemia type: iron deficiency Iron deficiency anemia type: unspecified iron deficiency Qualified Code(s): D50.9 - Iron deficiency anemia, unspecified (12) Hyperammonemia Current Visit: Yes Status: Acute Assessment and plan: Ammonia 233 - lactulose 10g TID - continue lactulose (13) Hypertension Current Visit: No Status: Chronic Assessment and plan: On cardizem, inderal - will hold BP meds - last BP systolic 96, diastolid 59 Qualifiers: Hypertension type: essential hypertension Qualified Code(s): I10 - Essential (primary) hypertension (14) DVT prophylaxis Current Visit: Yes Status: Acute Assessment and plan: coumadin - Time Spent With Patient Total time spent is greater than 50% in coordination of care (as documented) at patient's floor/unit and/or counseling patient: Greater than 35 minutes <Radha Betancourt - Last Filed: 04/19/18 16:57> Date of Encounter: 04/19/18 Time of Encounter: 15:00 Internal Medicine - H&P: HPI History of present illness: Mr. Lomeli is a 63 year old male Past Med Surg Social Fam HX - Additional Family History Additional family history: Family history reviewed and found to be noncontributory at this time All Systems PM: A 10-system review of systems was performed and is negative for pertinent fi ndings except as documented above in the HPI. - Constitutional Vitals: Temp Pulse Resp BP Pulse Ox 97.6 F 85 18 95/54 99 04/19/18 13:00 04/19/18 16:00 04/19/18 16:00 04/19/18 16:00 04/19/18 16:00 - Assessment and plan (1) Atrial fibrillation Current Visit: No Status: Chronic Qualifiers: Atrial fibrillation type: chronic Qualified Code(s): I48.2 - Chronic atrial fibrillation (2) Gout Current Visit: No Status: Chronic Qualifiers: Gout site: unspecified site Gout etiology: unspecified cause Chronicity: chronic Presence of tophus: without tophus Qualified Code(s): M1A.9XX0 - Chronic gout, unspecified, without tophus (tophi) (3) Chronic venous stasis dermatitis of both lower extremities Current Visit: No Status: Chronic (4) Obese Current Visit: No Status: Acute Qualifiers: Obesity type: due to excess calories Body mass index: BMI 39.0-39.9 Qualified Code(s): E66.01 - Morbid (severe) obesity due to excess calories; Z68.39 - Body mass index (BMI) 39.0-39.9, adult (5) Altered mental status Current Visit: No Status: Acute Qualifiers: Altered mental status type: delirium Qualified Code(s): R41.0 - Disorientation, unspecified (6) Hyperammonemia Current Visit: Yes Status: Acute (7) Iron deficiency Current Visit: No Status: Chronic (8) Hypothyroid Current Visit: No Status: Chronic Qualifiers: Hypothyroidism type: unspecified Qualified Code(s): E03.9 - Hypothyroidism, unspecified (9) Hepatic encephalopathy Current Visit: Yes Status: Acute (10) Hyperkalemia Current Visit: Yes Status: Acute (11) History of cirrhosis Current Visit: No Status: Chronic (12) Anemia Current Visit: No Status: Chronic Qualifiers: Anemia type: iron deficiency Iron deficiency anemia type: unspecified iron deficiency Qualified Code(s): D50.9 - Iron deficiency anemia, unspecified (13) Hypertension Current Visit: No Status: Chronic Qualifiers: Hypertension type: essential hypertension Qualified Code(s): I10 - Essential (primary) hypertension (14) DVT prophylaxis Current Visit: Yes Status: Acute - Time Spent With Patient Total time spent is greater than 50% in coordination of care (as documented) at patient's floor/unit and/or counseling patient: - Attending Attestation I saw evaluated and examined this patient and my medical decision-making was reviewed with the Resident Physician, Modesto Zimmerman. I agree with the documented findings, disposition and treatment plan as described except to any changes set forth below. We independently had [id number] contact with the patient. 73-year-old male patient with a history of cirrhosis of the liver, deep vein thrombosis who takes Coumadin, atrial fibrillation, COPD and hypertension was brought to the ER or to [facility] with complaints of altered mental status that began at around 2:30 AM this morning. Patient had been doing well last night prior to onset of these symptoms. He had been using curse words at home. He is now very somnolent and not waking up to sternal rub. History has therefore been obtained through his spouse is at bedside. Patient has reportedly been compliant with his lactulose and he takes 15 ml 3 times daily. Unsure if his been having bowel movements along with that. Patient was found to have high ammonia level. No fevers or chills reported. He did not complain of any abdominal pain prior to Onset of the Symptoms. He did receive lactulose enema in the ER and had a bowel movement. General: Patient is very somnolent. Difficult to awake Respiratory: Good respiratory effort. Normal breath sounds. No wheezing or crackles. Cardiovascular: Regular rate and rhythm. s1 and s2 normal No clicks, rubs, gallops, or murmurs. No pedal edema Abdomen: Abdomen is soft, distended. Tenderness not elicitable Musculoskeletal: Spontaneously moving all extremities Skin: warm, dry, intact. Patient does have signs of cirrhosis including caput medusae Neuro: Somnolent. Acute hepatic encephalopathy: With hyperammonemia. Patient does Need to continue lactulose. Since his very somnolent, will give him another enema. Check ammonia level. Hyperkalemia: Patient did receive lactulose and had a bowel movement. We will check potassium levels again. Possible spontaneous bacterial peritonitis: Initially suspected of this but unlikely given no presenting symptoms suggestive of his disorder. However patient was started on antibiotics. Paracentesis has been done. We will follow culture results. For now continue antibiotics. Cirrhosis of the liver with ascites: Child dunn Class B. Paracentesis done on 10 L of fluid removed. Patient receiving albumin. AK I: Creatinine elevated. Possibly hepatorenal syndrome. Will gently hydrate. Recheck renal function in the morning. Monitor urine output. History of DVT and atrial fibrillation: Patient on Coumadin. INR is subtherapeutic. Will resume Coumadin. If patient remains somnolent and is unable to take Coumadin, will start patient on IV heparin provided and negatives Stool for occult blood. Anemia: Acute on chronic anemia. Hemoglobin 8.2 at this time. Patient's baseline appears to be between 8 and 10. He has had colonoscopy and EGD in October 2017 which showed some angiodysplastic lesions which were treated. We will check stool for occult blood as patient is patient is on Coumadin although INR remains subtherapeutic. High risk for complications.
--- NOTE | 2018-04-19 15:49 | Procedure Note ---
Date of procedure: 04/19/18 Pre-op diagnosis: hepatic encephalopathy Post-op diagnosis: same Procedure: Date: 04/19/18 Time: 1500 Indication: Large pleural effusion Resident: scotty zimmerman Attending: dr. Joshua Johnson A time-out was completed verifying correct patient, procedure, site, positioning, and special equipment if applicable. The patients left side was prepped and draped in a sterile manner after the appropriate infiltration level was confirmed by ultrasound. 1% lidocaine was used anesthetize the surrounding skin. A finder needle was then used to locate fluid and clear yellow fluid was obtained. A 10-blade scalpel used to make the incision. The paracentesis catheter was then threaded without difficulty. The patient had 10L of clear yellow fluid removed. Dr Barrera was present for the entire procedure. Estimated Blood Loss:0cc The patient tolerated the procedure well and there were no complications. Anesthesia: local Surgeon: Scotty Zimmerman Was there an assistant to the director present: Yes Audit Analyst: Michael Barrera Estimated blood loss (cc): 0 Specimen: Ascites fluid Pathology: other Condition: stable Disposition: ICU
[2018-04-19] MEDS ORDERED: Lactulose Oral Soln 20 GM/30 ML UDC PO SCH (16:00)
[2018-04-19] MEDS ORDERED: Lactulose 200 GM/300 ML (for enema) RC ONE (16:05)
[2018-04-19 16:47] LABS: Basophils % 0.2 %; Eosinophils % 0.2 %; Hematocrit 26.5 % (37.5-50.1); Hemoglobin 8.2 g/dL (12.9-16.9); Immature Granulocytes % 0.4 % (0-4); Lymphocytes # 0.4 K/mcL (0.6-4.6); Lymphocytes % 7.3 %; Mean Corpuscular HGB Conc 30.9 g/dL (31.6-35.5); Mean Corpuscular Hemoglobin 25.3 pg (28.0-33.3); Mean Corpuscular Volume 81.8 fL (83.0-100.0); Mean Platelet Volume 11.1 fL (9.4-12.4); Monocytes # 0.7 K/mcL (0.0-1.3); Monocytes % 13.2 %; Neutrophils # 3.9 K/mcL (1.6-8.9); Platelet Count 159 K/mcL (140-400); Red Blood Count 3.24 M/mcL (4.19-5.50); Red Cell Distribution Width 23.2 % (11.5-14.5); Segmented Neutrophils % 78.7 %
[2018-04-19 17:07] LABS: Calcium 8.9 mg/dL (8.6-10.3); Potassium 5.1 mEq/L (3.5-5.1)
[2018-04-19 17:31] LABS: Anisocytosis 3+ (Not Present)
[2018-04-19 17:32] LABS: Burr Cells 1+ (Not Present); Poikilocytosis 2+ (Not Present)
[2018-04-19 17:33] LABS: Ovalocytes 1+ (Not Present); Platelet Estimate Normal (Normal)
[2018-04-19] MEDS ORDERED: Lactulose 200 GM, Sodium Chloride IRRigation 700 ML RC ONE (18:15)
[2018-04-19] MEDS: Lactulose Oral Soln 20 GM/30 ML UDC PO SCH ×2 (21:00→21:02)
[2018-04-19] MEDS: Pregabalin 50 MG CAPSULE PO SCH (21:01)
[2018-04-19] MEDS: Diltiazem CD (24hr) 120 MG CAPSULE PO SCH (21:01)
[2018-04-19 21:53] LABS: Appearance of Body Fluid Hazy (Clear); Volume of Body Fluid 1050 mL
[2018-04-19] MEDS ORDERED: *HR* Metoprolol 5 MG/5 ML VIAL IVP ONE (22:28)
[2018-04-19] MEDS ORDERED: Haloperidol Lactate 5 MG/ML VIAL ONE (22:28)
[2018-04-19] MEDS: *HR* Metoprolol 5 MG/5 ML VIAL IVP PRN (22:30)
[2018-04-20] MEDS: 0.9 % Sodium Chloride 1,000 ML IVC SCH (00:15)
[2018-04-20 03:22] LABS: Basophils % 0.3 %; Eosinophils # 0.1 K/mcL (0.0-0.6); Eosinophils % 1.1 %; Hematocrit 25.9 % (37.5-50.1); Immature Granulocytes % 0.2 % (0-4); Lymphocytes # 0.3 K/mcL (0.6-4.6); Lymphocytes % 4.8 %; Mean Corpuscular HGB Conc 30.9 g/dL (31.6-35.5); Mean Corpuscular Hemoglobin 25.5 pg (28.0-33.3); Mean Corpuscular Volume 82.5 fL (83.0-100.0); Mean Platelet Volume 10.4 fL (9.4-12.4); Monocytes # 0.7 K/mcL (0.0-1.3); Monocytes % 11.3 %; Neutrophils # 5.1 K/mcL (1.6-8.9); Platelet Count 149 K/mcL (140-400); Red Blood Count 3.14 M/mcL (4.19-5.50); Red Cell Distribution Width 23.2 % (11.5-14.5); Segmented Neutrophils % 82.3 %
[2018-04-20 03:30] LABS: INR 1.2; Prothrombin Time 13.4 Seconds (9.4-12.1)
[2018-04-20 03:44] LABS: Calcium 9.6 mg/dL (8.6-10.3); Potassium 5.7 mEq/L (3.5-5.1)
[2018-04-20 04:17] LABS: Anisocytosis 1+ (Not Present); Platelet Estimate Normal (Normal)
[2018-04-20 04:18] LABS: Poikilocytosis 1+ (Not Present)
[2018-04-20] MEDS: Levothyroxine 25 MCG TABLET PO SCH (05:18)
--- NOTE | 2018-04-20 07:18 | Internal Med Progress Note ---
<Modesto Zimmerman S - Last Filed: 04/20/18 11:41> Hospitalist Progress Note - Encounter Date of Encounter: 04/20/18 Time of Encounter: 07:18 - Subjective Interval History: Mr. Lomeli is a 63 year old male with PMH of stage 3 cirrhosis, hx of DVT on Coumadin, liver failure, a fib, COPD, HTN. He was transferred from [facility] today with altered mental status. At the ER, he was found to have a potassium of 5.7. EKG showed Atrial fibrillation, HR 61, QT 442, no ST segment changes. According to records from [facility], the pt didn't deny any fever, chills, cough, diarrhea, melena, changes in appetite, hematemesis. The patient's is present and gives no additional history. Paracentesis was performed at bedside and 10L of fluid was taken off yesterday afternoon. Fluid was sent to lab for analysis. GI recommended 50g of albumin per 3.5 L taken off. This morning the pt is seen at bedside. He is refusing to answer questions and threatens to slap me. PE not performed at this time. - Exam Vitals: Temp Pulse Resp BP Pulse Ox 97.9 F 101 16 93/68 99 04/20/18 04:20 04/20/18 03:20 04/20/18 03:20 04/20/18 03:20 04/20/18 03:20 Exam: not performed due to pt refusal - Assessment and Plan (1) Hepatic encephalopathy Current Visit: Yes Status: Acute Assessment and Plan: Need to rule out SBP in the setting of pt with hx of ESLD and AMS - pt presented with AMS on 04/19/18 Paracentesis performed, 10L of fluid was taken off Pt is high risk for hepatorenal syndrome - BUN 66, creatinine 1.97 on admission, 1.45 today - baseline creatinine appears to be around 0.7 - 0.8 MELD score of 21 Child Dunn Class B LDH 135 Repeat ammonia 129 Plan: - rocephin 2g daily, day 2 - 125cc/hr 0.9% NS x 2 bags - discontinued - GI consulted 50g of albumin given per 3.5L taken off of fluid, for a total of 150g plans for scope tomorrow make NPO at midnight - cardiac diet - Albumin, cell count, culture, peritoneal fluid pending - cath placed - measure I&O's - continue Aldactone, lasix and propanolol - continue lactulose for a total of 3 bowel movements per day --> titrate up to 45g TID today - one time rectal suppository given last night - pt needs to be on high protein diet once able to eat - continue to monitor CBC, BMP - FOBT pending - will decide upon anticoagulation once results given (2) Iron deficiency Current Visit: No Status: Chronic Assessment and Plan: On Ferrous sulfate - chronic - continue home med (3) Hypothyroid Current Visit: No Status: Chronic Assessment and Plan: On synthroid - chronic, continue home med (4) Atrial fibrillation Current Visit: No Status: Chronic Assessment and Plan: Chronic - on Coumadin - on cardizem - on digoxin (5) Gout Current Visit: No Status: Chronic (6) Chronic venous stasis dermatitis of both lower extremities Current Visit: No Status: Chronic Assessment and Plan: Chronic (7) Obese Current Visit: No Status: Acute Assessment and Plan: BMI 36.5 - lifestyle chanegs (8) Altered mental status Current Visit: No Status: Acute Assessment and Plan: Secondary to hepatic encephalopathy - see plan as above (9) Hyperkalemia Current Visit: Yes Status: Acute Assessment and Plan: Potassium of 5.7 this morning - given lactulose yesterday, will increase to 45g TID today - will check potassium at 1200 - 30g kayexalate given (10) History of cirrhosis Current Visit: No Status: Chronic Assessment and Plan: Chronic - see plan as above (11) Anemia Current Visit: No Status: Chronic Assessment and Plan: Hemoglobin 8.5 on admission, 8.0 on 04/20 - H&H stable, appears to be at baseline - continue to monitor - FOBT pending (12) Hyperammonemia Current Visit: Yes Status: Inactive Assessment and Plan: Ammonia 233 on admission - lactulose 45 g TID (13) Hypertension Current Visit: No Status: Chronic Assessment and Plan: On cardizem, inderal - will hold BP meds - last BP systolic 93/68 (14) DVT prophylaxis Current Visit: Yes Status: Acute Assessment and Plan: coumadin held currently - Time Spent with Patient Total time spent is greater than 50% in coordination of care (as documented) at patient's floor/unit and/or counseling patient: less than 15 minutes Plan of Care Discussed with: patient Internal Medicine: Result - Labs CBC & Chem 7: 04/20/18 03:13 04/20/18 03:13 Labs: Short CBC 04/19/18 04/20/18 Range/Units 16:35 03:13 WBC 4.9 6.2 (4.3-11.1) K/mcL Hgb 8.2 L 8.0 L (12.9-16.9) g/dL Hct 26.5 L 25.9 L (37.5-50.1) % Plt Count 159 149 (140-400) K/mcL Neutrophils # 3.9 5.1 (1.6-8.9) K/mcL BMP 04/19/18 04/20/18 16:35 03:13 Sodium 134 L 140 Potassium 5.1 5.7 H Chloride 111 H 116 H Carbon Dioxide 13 L 15 L BUN 56 H 54 H Creatinine 1.50 H 1.45 H Glucose 107 H 92 Calcium 8.9 9.6 - ABG Interpretation ABG results: PT/INR, D-dimer PT 13.4 Seconds (9.4-12.1) H 04/20/18 03:13 Consult Discharge Plan - Plan Referrals: NONE,PCP [Primary Care Provider] - <Janey Clarke - Last Filed: 04/20/18 17:21> Hospitalist Progress Note - Encounter Date of Encounter: 04/20/18 - Exam Vitals: Temp Pulse Resp BP Pulse Ox 98.2 F 111 18 103/72 100 04/20/18 16:01 04/20/18 16:01 04/20/18 16:01 04/20/18 16:01 04/20/18 16:01 - Assessment and Plan (1) Atrial fibrillation Current Visit: No Status: Chronic (2) Gout Current Visit: No Status: Chronic (3) Chronic venous stasis dermatitis of both lower extremities Current Visit: No Status: Chronic (4) Obese Current Visit: No Status: Acute (5) Altered mental status Current Visit: No Status: Acute (6) Hyperammonemia Current Visit: Yes Status: Inactive (7) Iron deficiency Current Visit: No Status: Chronic (8) Hypothyroid Current Visit: No Status: Chronic (9) Hepatic encephalopathy Current Visit: Yes Status: Acute (10) Hyperkalemia Current Visit: Yes Status: Acute (11) History of cirrhosis Current Visit: No Status: Chronic (12) Anemia Current Visit: No Status: Chronic (13) Hypertension Current Visit: No Status: Chronic (14) DVT prophylaxis Current Visit: Yes Status: Acute - Time Spent with Patient Total time spent is greater than 50% in coordination of care (as documented) at patient's floor/unit and/or counseling patient: Internal Medicine: Result - Labs CBC & Chem 7: 04/20/18 12:01 04/20/18 11:16 Labs: Short CBC 04/19/18 04/20/18 04/20/18 Range/Units 16:35 03:13 12:01 WBC 6.2 (4.3-11.1) K/mcL Hgb 8.0 L 9.3 L (12.9-16.9) g/dL Hct 25.9 L 30.3 L (37.5-50.1) % Plt Count 149 (140-400) K/mcL Neutrophils # 3.9 5.1 (1.6-8.9) K/mcL BMP 04/20/18 04/20/18 03:13 11:16 Sodium 140 Potassium 5.7 H 4.7 Chloride 116 H Carbon Dioxide 15 L BUN 54 H Creatinine 1.45 H Glucose 92 Calcium 9.6 Liver Function 04/20/18 Range/Units 11:16 Total Bilirubin 2.0 H (0.3-1.0) mg/dL Direct Bilirubin 0.6 H (0.0-0.2) mg/dL AST 26 (13-39) Units/L ALT 13 (7-52) Units/L Alkaline Phosphatase 139 H (34-104) Units/L Albumin 4.2 (3.5-5.7) g/dL - ABG Interpretation ABG results: PT/INR, D-dimer PT 13.4 Seconds (9.4-12.1) H 04/20/18 03:13 - Attending Attestation I saw and assessed this patietn and agree with plan per resident Plan Acute decompensated liver cirrhosis with acute metabolic encephalopathy. s/p paracentesis. Improved with lactulose. GI following and plan for endscopy. NPO from midnight <Modesto Zimmerman - Last Filed: 04/20/18 11:41> (3) Hypothyroid Qualifiers: Hypothyroidism type: unspecified Qualified Code(s): E03.9 - Hypothyroidism, unspecified (4) Atrial fibrillation Qualifiers: Atrial fibrillation type: chronic Qualified Code(s): I48.2 - Chronic atrial fibrillation (5) Gout Qualifiers: Gout site: unspecified site Gout etiology: unspecified cause Chronicity: chronic Presence of tophus: without tophus Qualified Code(s): M1A.9XX0 - Chronic gout, unspecified, without tophus (tophi) (7) Obese Qualifiers: Obesity type: due to excess calories Body mass index: BMI 39.0-39.9 (8) Altered mental status Qualifiers: Altered mental status type: delirium Qualified Code(s): R41.0 - Disorientation, unspecified (11) Anemia Qualifiers: Anemia type: iron deficiency Iron deficiency anemia type: unspecified iron deficiency Qualified Code(s): D50.9 - Iron deficiency anemia, unspecified (13) Hypertension Qualifiers: Hypertension type: essential hypertension Qualified Code(s): I10 - Essential (primary) hypertension <Janey Clarke A - Last Filed: 04/20/18 17:21> (1) Atrial fibrillation Qualifiers: Atrial fibrillation type: chronic Qualified Code(s): I48.2 - Chronic atrial fibrillation (2) Gout Qualifiers: Gout site: unspecified site Gout etiology: unspecified cause Chronicity: chronic Presence of tophus: without tophus Qualified Code(s): M1A.9XX0 - Chronic gout, unspecified, without tophus (tophi) (4) Obese Qualifiers: Obesity type: due to excess calories Body mass index: BMI 39.0-39.9 (5) Altered mental status Qualifiers: Altered mental status type: delirium Qualified Code(s): R41.0 - Disorientation, unspecified (8) Hypothyroid Qualifiers: Hypothyroidism type: unspecified Qualified Code(s): E03.9 - Hypothyroidism, unspecified (12) Anemia Qualifiers: Anemia type: iron deficiency Iron deficiency anemia type: unspecified iron deficiency Qualified Code(s): D50.9 - Iron deficiency anemia, unspecified (13) Hypertension Qualifiers: Hypertension type: essential hypertension Qualified Code(s): I10 - Essential (primary) hypertension
[2018-04-20] MEDS: cefTRIAXone 2,000 MG in Water for inj. (sterile) 20 ML 20 ML IVP SCH (07:50)
[2018-04-20] MEDS: Pregabalin 50 MG CAPSULE PO SCH ×3 (07:51→20:37)
[2018-04-20] MEDS: Lactulose Oral Soln 20 GM/30 ML UDC PO SCH ×7 (07:51→20:41)
[2018-04-20] MEDS ORDERED: *HR* Warfarin 4 MG TABLET PO SCH (09:00)
[2018-04-20] MEDS ORDERED: TIOTROPIUM BROMIDE IH SCH (10:00)
[2018-04-20] MEDS: *HR* Metoprolol 5 MG/5 ML VIAL IVP PRN (11:00)
--- NOTE | 2018-04-20 11:00 | Gastroenterology Consult Note ---
Date of Encounter: 04/20/18 Time of Encounter: 09:50 - Assessment and plan (1) Cirrhosis of liver with ascites Current Visit: No Status: Acute Assessment and plan: MELD-Na 21, Child-Dunn class B, DF 15.1. Continue Lasix, Aldactone, and propanolol. AFP 2 on 02/18/2018. Paracentesis completed with 10L removed. Plan for EGD to r/o esophagitis, varices, gastritis, duodenitis, PUD, MW tear, or AVM. Consider TIPS. 1. Total abstinence from alcohol including social drinking. 2. No smoking 3. Gradual loss of weight 4. Drink at least 3 cups of coffee due to its antioxidant effects in the liver, it reduces risk of HCC and advance fibrosis 5. If needed, use less than 2 g/day of Tylenol (in divided doses). 6. Vaccination for Hep A, B, Pneumococcus if not already received and yearly influenza vaccination by PCP 7. Avoid NSAIDS as can cause kidney damage 8. Avoid benzodiazepines and other sedatives such as anti-histamines, narcotics etc. as can cause encephalopathy or confusion 9. Take a late carbohydrate meal supplement as it reduces glucose production from protein breakdown and thus improves nutrition. 10. In cirrhosis, statins are safe to use and also improve portal hypertension and decrease risk of HCC. Qualifiers: Hepatic cirrhosis type: alcoholic cirrhosis Qualified Code(s): K70.31 - Alcoholic cirrhosis of liver with ascites (2) Hepatic encephalopathy Current Visit: Yes Status: Acute Assessment and plan: Improved from admission. Titrate Lactulose for 2-4 BM daily. Start Rifaximin 550mg BID. - Time Spent With Patient Total time spent is greater than 50% in coordination of care (as documented) at patient's floor/unit and/or counseling patient: GI History of Present Illness - Data of Consult Patient: known to practice within the last 3 years Consult date: 04/20/18 Requesting Physician: Joelle Eubanks MD - Consult Narrative Reason for consult: Hepatic encephalopathy, Ascites History of present illness: Mr. Lomeli is a 63 year old male with PMHx of A fib, COPD, DVT, HTN, alcohol use, cirrhosis who was transferred from [facility] with altered mental status. On admission here he was very somnolent and not waking up to sternal rub. Patient has reportedly been compliant with his lactulose and he takes 15 ml 3 times daily. Paracentesis was completed with 10L of fluid removed and 150g of albumin given following paracentesis. Ammonia level 223 at [facility] and 129 on admission here. We were consulted to evaluate his encephalopathy and cirrhosis. He was started on Rocephin, Aldactone, Lasix, and propanolol. He Procedures: Colonoscopy 11/11/2017 Dr. Landa: Two AVMs, treated with cautery, diverticulosis, internal hemorrhoids. EGD 11/10/2017 Dr. Landa: Grade I varices, portal hypertensive gastropathy. NSAIDs: None Anticoagulation: Coumadin Past Med Surg Social Fam HX - Past Medical History Medical history: atrial fibrillation, cirrhosis, COPD, DVT, hypertension, other Additional medical history: Gout Psychiatric history: no psych history - Past Surgical History Surgical History: herniorrhaphy, orthopedic, other, other Additional surgical history: cirrhosis, carpal tunnel surgery, herniated disc repair, left arm surgery, b/l knees, r wrist - Social History Smoking Status: Former smoker Smokeless Tobacco Status: No Alcohol use: none Drug use: none - Family History Father Hx Family Endocrine Disorder: Yes - Gastrointestinal Gastrointestinal: Present: as per HPI - Constitutional Constitutional: as per HPI - EENT Eyes: as per HPI Ears: Present: as per HPI Nose, mouth and throat: Present: as per HPI - Cardiovascular Cardiovascular ROS: Present: as per HPI - Respiratory Respiratory IM: Present: as per HPI - Genitourinary Genitourinary: Absent: change in color, Urinary frequency - Neurological ROS Neurological GI: Present: as per HPI - Hematologic/Lymphatic Hematologic/Lymphatic pediatric: Present: as per HPI - Musculoskeletal Musculoskeletal ROS GI: Present: as per HPI - Integumentary Integumentary GI: Present: as per HPI - Psychiatric ROS Psychiatric GI: Present: as per HPI - Endocrine Endocrine IM: Present: as per HPI - Constitutional Vitals: Temp Pulse Resp BP Pulse Ox 97.8 F 123 14 104/63 95 04/20/18 08:00 04/20/18 08:00 04/20/18 08:00 04/20/18 08:00 04/20/18 08:00 General appearance: Present: disheveled, A&O X 3, no acute distress, answers questions appropriately - Head Head exam: Present: atraumatic, normocephalic - Eye Eye exam: Present: normal appearance, sclera anicteric - ENT ENT exam: Present: mucous membranes moist - Neck Neck exam general surgery: Present: normal inspection, trachea midline - Respiratory Respiratory exam: Present: CTAB. Absent: rales - Cardiovascular Cardiovascular exam: Present: RRR, +S1, +S2 - GI/Abdominal GI/Abdominal exam: Present: distended, soft, no peritoneal signs. Absent: firm, guarding, tenderness Additional comments: caput medusae present - Expanded GI/Abdominal Exam GI/Abdominal exam expanded: Present: ascites - Rectal Rectal exam: Present: deferred - Extremities Exam Extremities exam: Present: warm - Neurological Exam Neurological exam: Present: no focal deficits - Psychiatric Psychiatric exam: Present: normal affect, normal mood - Skin Skin exam: Present: dry, intact, normal color, warm Results - Labs CBC & Chem 7: 04/20/18 03:13 04/20/18 03:13 Labs: Last Result Calcium 9.6 mg/dL (8.6-10.3) 04/20/18 03:13 Peritoneal LDH 35 Units/L (No Ref Range) 04/19/18 15:00 Entire Visit Hgb 8.0 g/dL (12.9-16.9) L 04/20/18 03:13 Hct 25.9 % (37.5-50.1) L 04/20/18 03:13 PT 13.4 Seconds (9.4-12.1) H 04/20/18 03:13 Ammonia 129 mcmol/L (16-53) H 04/19/18 16:35 - ABG ABG results: PT/INR, D-dimer PT 13.4 Seconds (9.4-12.1) H 04/20/18 03:13 Consult Discharge Plan - Plan Referrals: NONE,PCP [Primary Care Provider] -
[2018-04-20 11:46] LABS: Albumin 4.2 g/dL (3.5-5.7); Albumin/Globulin Ratio 1.4 (1.1-2.2); Bilirubin,Direct 0.6 mg/dL (0.0-0.2); Bilirubin,Indirect 1.4 mg/dL (0.0-1.2); Globulin 2.9 g/dL (2.4-3.5); Total Protein 7.1 g/dL (6.4-8.9)
[2018-04-20 12:20] LABS: Hematocrit 30.3 % (37.5-50.1); Hemoglobin 9.3 g/dL (12.9-16.9)
[2018-04-20] MEDS: Diltiazem CD (24hr) 120 MG CAPSULE PO SCH (17:07)
--- NOTE | 2018-04-20 23:12 | Anesthesia Evaluation PreOp ---
<Alla Kumar - Last Filed: 04/20/18 23:10> Date of Encounter: 04/20/18 - Past History Planned Operation: EGD Cardiac History: CHF (Mod-Severe Aortic stenosis per TTE ), Arrhythmia (A fib), Other Pulmonary History: Former smoker, COPD [employer] History: Denies Any Significant HX Other Medical History: Hepatic (liver failure with alcoholic cirrhosis, ascites, portal HTN), Bleeding (anemia), Thyroid (hypothyroidism) Anesthesia History: No Prior Anesthetic Complications Alcohol Use: none Drug use: none Medications and Allergies Allopurinol [Zyloprim 300 MG] 300 mg PO DAILY tablet 10/24/16 [Rx] Digoxin [Lanoxin] 0.25 mg PO DAILY tablet 10/24/16 [Rx] Pregabalin [Lyrica] 200 mg PO TID 11/09/17 [History] Ferrous Sulfate [Iron] 325 mg PO DAILY 11/10/17 [History] Diltiazem CD (24hr) [Cardizem CD] 120 mg PO QPM #30 cap.er.24h 11/13/17 [Rx] Propranolol [Inderal] 20 mg PO BID #60 tablet 11/13/17 [Rx] Furosemide [Lasix] 40 mg PO DAILY 02/06/18 [History] Spironolactone [Aldactone] 200 mg PO DAILY 02/06/18 [History] Tiotropium [place] [Spiriva Respimat] 2 puff IH DAILY 02/06/18 [History] Warfarin Sodium 4 mg PO DAILY 02/06/18 [History] Lactulose [Enulose] 10 gm PO TID 02/17/18 [History] Albuterol Sulfate [Ventolin Hfa] 2 puff IH Q4H PRN 04/20/18 [History] Allergy/AdvReac Type Severity Reaction Status Date / Time tramadol AdvReac Itching Verified 01/15/18 16:18 - Meds/Allergy Pre-op Review Medications Reviewed: Yes Allergies Reviewed: Yes Beta Blockers on Current Med List: Yes (metoprolol) If Beta Blockers taken, Date/Time (Last Dose taken): 04-20-18 at 11:00 Anesthesia Results - Labs 04/20/18 12:01 04/20/18 11:16 - Imaging EKG: report reviewed, image reviewed (ATRIAL FIBRILLATION INTRAVENTRICULAR CONDUCTION DELAY) Additional studies: TTE: Impressions: LVEF 60-65%. Mild concentric left ventricular hypertrophy. Indeterminate diastolic function. Definity echo contrast was used. Normal right ventricular structure and function. Mild mitral regurgitation. Mild tricuspid regurgitation. Moderate-severe aortic stenosis. Mild pulmonary hypertension. Anesthesia Exam Last Vital Signs Temp 98.1 F 04/20/18 22:43 Pulse 98 04/20/18 22:43 Resp 15 04/20/18 22:43 BP 99/59 04/20/18 22:43 Pulse Ox 93 04/20/18 22:43 Weight: 118 kg Anesthesia Assess/Plan ASA Score: 4 Anesthetic Plan: MAC Monitoring Plan: Standard Monitors Recovery Plan: PACU <Jamir Zee - Last Filed: 04/21/18 14:36> Date of Encounter: 04/21/18 Time of Encounter: 14:33 Anesthesia Results - Labs 04/21/18 12:06 04/21/18 03:06 Laboratory Last Values WBC 4.9 K/mcL (4.3-11.1) 04/21/18 03:06 RBC 3.14 M/mcL (4.19-5.50) L 04/21/18 03:06 Hgb 8.2 g/dL (12.9-16.9) L 04/21/18 12:06 Hct 26.7 % (37.5-50.1) L 04/21/18 12:06 MCV 82.5 fL (83.0-100.0) L 04/21/18 03:06 MCH 25.8 pg (28.0-33.3) L 04/21/18 03:06 MCHC 31.3 g/dL (31.6-35.5) L 04/21/18 03:06 RDW 23.1 % (11.5-14.5) H 04/21/18 03:06 Plt Count 147 K/mcL (140-400) 04/21/18 03:06 MPV 11.5 fL (9.4-12.4) 04/21/18 03:06 Immature Gran % 0.2 % (0-4) 04/21/18 03:06 Seg Neutrophils % 70.8 % 04/21/18 03:06 Lymphocytes % 12.3 % 04/21/18 03:06 Monocytes % 15.1 % 04/21/18 03:06 Eosinophils % 1.0 % 04/21/18 03:06 Basophils % 0.6 % 04/21/18 03:06 Neutrophils # 3.5 K/mcL (1.6-8.9) 04/21/18 03:06 Lymphocytes # 0.6 K/mcL (0.6-4.6) 04/21/18 03:06 Monocytes # 0.7 K/mcL (0.0-1.3) 04/21/18 03:06 Eosinophils # 0.1 K/mcL (0.0-0.6) 04/21/18 03:06 Basophils # 0.0 K/mcL (0.0-0.2) 04/21/18 03:06 Platelet Estimate Normal (Normal) 04/21/18 03:06 Hypochromasia Present (Not Present) A 04/21/18 03:06 Poikilocytosis 1+ (Not Present) A 04/20/18 03:13 Anisocytosis 1+ (Not Present) A 04/20/18 03:13 Ovalocytes 1+ (Not Present) A 04/19/18 16:35 Cathie Cells 1+ (Not Present) A 04/21/18 03:06 PT 13.4 Seconds (9.4-12.1) H 04/20/18 03:13 INR 1.2 04/20/18 03:13 Sodium 134 mEq/L (136-145) L 04/21/18 03:06 Potassium 5.2 mEq/L (3.5-5.1) H 04/21/18 03:06 Chloride 109 mEq/L (98-107) H 04/21/18 03:06 Carbon Dioxide 14 mEq/L (23-29) L 04/21/18 03:06 BUN 50 mg/dL (8-23) H 04/21/18 03:06 Creatinine 1.54 mg/dL (0.70-1.30) H 04/21/18 03:06 Est GFR ( Amer) 56 (> 60) L 04/21/18 03:06 Est GFR (Non-Af Amer) 46 (> 60) L 04/21/18 03:06 BUN/Creatinine Ratio 32 (6-26) H 04/21/18 03:06 Glucose 116 mg/dL (70-105) H 04/21/18 03:06 POC Glucose 100 mg/dL (70-99) H 04/20/18 11:54 Calculated Osmolality 292 (280-300) 04/21/18 03:06 Calcium 9.3 mg/dL (8.6-10.3) 04/21/18 03:06 Total Bilirubin 2.0 mg/dL (0.3-1.0) H 04/20/18 11:16 Direct Bilirubin 0.6 mg/dL (0.0-0.2) H 04/20/18 11:16 Indirect Bilirubin 1.4 mg/dL (0.0-1.2) H 04/20/18 11:16 AST 26 Units/L (13-39) 04/20/18 11:16 ALT 13 Units/L (7-52) 04/20/18 11:16 Alkaline Phosphatase 139 Units/L (34-104) H 04/20/18 11:16 Ammonia 46 mcmol/L (16-53) 04/20/18 11:16 Lactate Dehydrogenase 135 Units/L (140-271) L 04/19/18 14:52 Serum Total Protein 7.1 g/dL (6.4-8.9) 04/20/18 11:16 Albumin 4.2 g/dL (3.5-5.7) 04/20/18 11:16 Globulin 2.9 g/dL (2.4-3.5) 04/20/18 11:16 Albumin/Globulin Ratio 1.4 (1.1-2.2) 04/20/18 11:16 Fluid Source ascities 04/19/18 15:00 Fluid Volume 1050 mL 04/19/18 15:00 Fluid Appearance Hazy (Clear) A 04/19/18 15:00 Fluid RBC 0.002 M/mcL (No Ref Range) 04/19/18 15:00 Fld Tot Nucleated Cell 176 TNC/mcL (No Ref Range) 04/19/18 15:00 Fluid Seg Neutrophil % 14.0 % 04/19/18 15:00 Fld Band Neutrophil % Test Not Performed 04/19/18 15:00 Fluid Lymphocytes % 80.0 % 04/19/18 15:00 Fluid Monocytes % 4.0 % 04/19/18 15:00 Fluid Eosinophils % Test Not Performed 04/19/18 15:00 Fluid Basophils % Test Not Performed 04/19/18 15:00 Fluid Other Cells % 2.0 % 04/19/18 15:00 Peritoneal LDH 35 Units/L (No Ref Range) 04/19/18 15:00 Anesthesia Exam Vital Signs/O2 Sat/Glucose, Most Recent Temp Pulse Resp BP Pulse Ox 98.1 F 84 16 93/61 100 04/21/18 11:06 04/21/18 11:06 04/21/18 11:06 04/21/18 11:06 04/21/18 11:06 Blood Glucose* 100 NPO (# of Hours): 8 - HEENT Mallampati: I Teeth: Edentulous Denture Type: Upper: Complete Oral Opening: Greater than 3 - Cardiac Rhythm: Regular - Pulmonary Breath Sounds: bilateral Clear Respiratory Effort: Symmetrical - Additional Findings BILATERAL LE EDEMA & VENOUS STASIS WITH ULCERS Active Medications Allopurinol (Zyloprim) 300 mg PO DAILY JACKY Stop: 10/20/18 09:01 Last Admin: 04/21/18 08:16 Dose: Not Given Diltiazem HCl (Cardizem Cd) 120 mg PO QPM JACKY Stop: 10/19/18 18:01 Last Admin: 04/20/18 17:07 Dose: 120 mg Ferrous Sulfate (Ferrous Sulfate) 325 mg PO DAILY [facility] Stop: 10/20/18 09:01 Last Admin: 04/21/18 08:16 Dose: Not Given Ceftriaxone Sodium 2,000 mg/ (Sterile Water) 20 mls @ 600 mls/hr IVP DAILY JACKY Stop: 10/20/18 09:01 Last Infusion: 04/21/18 08:37 Dose: Infused Lactulose (Lactulose) 45 gm PO TID JACKY Stop: 10/20/18 09:01 Last Admin: 04/21/18 08:16 Dose: Not Given Levothyroxine Sodium (Synthroid) 50 mcg PO 0630 [facility] Stop: 10/20/18 06:31 Last Admin: 04/21/18 06:04 Dose: Not Given Metoprolol Tartrate (Lopressor) 5 mg IVP Q6H PRN PRN Reason: HR >110 Stop: 10/20/18 02:09 Last Admin: 04/20/18 11:00 Dose: 5 mg Naloxone HCl (Narcan) 0.4 mg IVP Q2MIN PRN PRN Reason: SEE COMMENTS Stop: 10/19/18 14:32 Pregabalin (Lyrica) 200 mg PO TID [facility] Stop: 10/19/18 21:01 Last Admin: 04/21/18 08:16 Dose: Not Given Rifaximin (Xifaxan) 550 mg PO BID [facility] Stop: 10/20/18 21:01 Last Admin: 04/21/18 08:16 Dose: Not Given Tiotropium [place] (Spiriva) 18 mcg IH DAILYR [facility] Stop: 10/21/18 09:01 Last Admin: 04/21/18 10:37 Dose: Not Given Anesthesia Assess/Plan Recovery Plan: PACU (PHASE 2 - TO FLOOR) Anes Supervising Prov Stmt: Patient informed and consented. Risks, benefits, and alternatives discussed. Patient wishes to proceed.
[2018-04-21 05:28] LABS: Basophils % 0.6 %; Eosinophils # 0.1 K/mcL (0.0-0.6); Hematocrit 25.9 % (37.5-50.1); Hemoglobin 8.1 g/dL (12.9-16.9); Immature Granulocytes % 0.2 % (0-4); Lymphocytes # 0.6 K/mcL (0.6-4.6); Lymphocytes % 12.3 %; Mean Corpuscular HGB Conc 31.3 g/dL (31.6-35.5); Mean Corpuscular Hemoglobin 25.8 pg (28.0-33.3); Mean Corpuscular Volume 82.5 fL (83.0-100.0); Mean Platelet Volume 11.5 fL (9.4-12.4); Monocytes # 0.7 K/mcL (0.0-1.3); Monocytes % 15.1 %; Neutrophils # 3.5 K/mcL (1.6-8.9); Platelet Count 147 K/mcL (140-400); Red Blood Count 3.14 M/mcL (4.19-5.50); Red Cell Distribution Width 23.1 % (11.5-14.5); Segmented Neutrophils % 70.8 %
[2018-04-21 05:48] LABS: Calcium 9.3 mg/dL (8.6-10.3); Potassium 5.2 mEq/L (3.5-5.1)
[2018-04-21 05:55] LABS: Burr Cells 1+ (Not Present); Hypochromasia Present (Not Present); Platelet Estimate Normal (Normal)
[2018-04-21] MEDS: Levothyroxine 25 MCG TABLET PO SCH (06:04)
[2018-04-21] MEDS: Pregabalin 50 MG CAPSULE PO SCH ×3 (08:16→20:24)
[2018-04-21] MEDS: Lactulose Oral Soln 20 GM/30 ML UDC PO SCH ×3 (08:16→20:24)
[2018-04-21] MEDS: cefTRIAXone 2,000 MG in Water for inj. (sterile) 20 ML 20 ML IVP SCH (08:20)
[2018-04-21] MEDS ORDERED: Tiotropium 18 MCG inhalation IH SCH (09:00)
--- NOTE | 2018-04-21 09:50 | Internal Med Progress Note ---
<Modesto Zimmerman S - Last Filed: 04/21/18 11:27> Hospitalist Progress Note - Encounter Date of Encounter: 04/21/18 Time of Encounter: 09:45 - Subjective Interval History: Mr. Lomeli is a 63 year old male with PMH of stage 3 cirrhosis, hx of DVT on Coumadin, liver failure, a fib, COPD, HTN. He was transferred from [facility] today with altered mental status. At the ER, he was found to have a potassium of 5.7. EKG showed Atrial fibrillation, HR 61, QT 442, no ST segment changes. According to records from [facility], the pt didn't deny any fever, chills, cough, diarrhea, melena, changes in appetite, hematemesis. The patient's is present and gives no additional history. Paracentesis was performed at bedside and 10L of fluid was taken off yesterday afternoon. Fluid was sent to lab for analysis. GI recommended 50g of albumin per 3.5 L taken off. This morning the pt is seen at bedside. He is refusing to stay NPO and demands ice chips. Pt is aggressive. Will not perform PE on this pt. - he threatens to leave and I told him it is in his best interest to stay for further workup and testing - he states he is hungry, tired and thirsty - becoming very agitated and rude to nursing staff - Exam Vitals: Temp Pulse Resp BP Pulse Ox 98.4 F 126 18 102/63 99 04/21/18 06:44 04/21/18 06:44 04/21/18 06:44 04/21/18 06:44 04/21/18 08:33 Exam: not performed due to pt agitation - Assessment and Plan (1) Hepatic encephalopathy Current Visit: Yes Status: Resolved Assessment and Plan: Pt with hx of ESLD present with increasing worsening mental status changes - pt presented with AMS on 04/19/18 - have resolved at this point, pt is AOx3 but very agitated Paracentesis performed, 10L of fluid was taken off Pt is high risk for hepatorenal syndrome - BUN 66, creatinine 1.97 on admission, 1.45 on 04/20 and worsening to 1.54 today - baseline creatinine appears to be around 0.7 - 0.8 MELD score of 21 Child Dunn Class B LDH 135 Repeat ammonia 129 Ascites fluid reveales hazy appearance - peritoneal LDH 35 - likely a transudative sample secondary to liver cirrhosis Plan: - rocephin 2g daily, day 3 - 125cc/hr 0.9% NS x 2 bags - discontinued - GI consulted 50g of albumin given per 3.5L taken off of fluid, for a total of 150g Pt currently NPO in preparation for EGD today Pt currently refusing to stay NPO, demanding ice chips - cardiac diet - Albumin, cell count, culture pending - cath placed - measure I&O's - continue Aldactone, lasix and propanolol - continue lactulose for a total of 3 bowel movements per day --> titrate up to 45g TID today - one time rectal suppository given on admission - has one recorded BM last night - pt needs to be on high protein diet once able to eat - continue to monitor CBC, BMP - FOBT pending - will decide upon anticoagulation once results given (2) Iron deficiency Current Visit: No Status: Chronic Assessment and Plan: On Ferrous sulfate - chronic - continue home med (3) Hypothyroid Current Visit: No Status: Chronic Assessment and Plan: On synthroid - chronic, continue home med (4) Atrial fibrillation Current Visit: No Status: Chronic Assessment and Plan: Chronic - on Coumadin , currently held - on cardizem - on digoxin (5) Gout Current Visit: No Status: Chronic Assessment and Plan: On allopurinal - chronic - continue home med (6) Chronic venous stasis dermatitis of both lower extremities Current Visit: No Status: Chronic Assessment and Plan: Chronic (7) Obese Current Visit: No Status: Acute Assessment and Plan: BMI 30 - lifestyle chanegs (8) Altered mental status Current Visit: No Status: Resolved Assessment and Plan: Secondary to hepatic encephalopathy - see plan as above (9) Hyperkalemia Current Visit: Yes Status: Acute Assessment and Plan: Potassium of 5.2 this morning - 30g kayexalate ordered (10) History of cirrhosis Current Visit: No Status: Chronic Assessment and Plan: Chronic - see plan as above (11) Anemia Current Visit: No Status: Chronic Assessment and Plan: Hemoglobin 8.5 on admission, 8.0 on 04/20 - increased to 9.3 at noon 04/21, 8.1 this morning - continue to monitor - H&H at noon - FOBT pending (12) Hypertension Current Visit: No Status: Chronic Assessment and Plan: On cardizem, inderal - will hold BP meds (13) DVT prophylaxis Current Visit: Yes Status: Acute Assessment and Plan: scd (14) JOSSELINE (acute kidney injury) Current Visit: Yes Status: Acute Assessment and Plan: On Admission creatiine 1.50 - improved to 1.45 with fluids - this morning is 1.54 Baseline around ~0.8 Pt is a high risk for hepatorenal syndrome Plan: - avoid nephrotoxins - I&O's - continue to monitor bmp/cbc - Time Spent with Patient Total time spent is greater than 50% in coordination of care (as documented) at patient's floor/unit and/or counseling patient: less than 15 minutes Plan of Care Discussed with: patient Internal Medicine: Result - Labs CBC & Chem 7: 04/21/18 03:06 04/21/18 03:06 Labs: Short CBC 04/20/18 04/21/18 Range/Units 12:01 03:06 WBC 4.9 (4.3-11.1) K/mcL Hgb 9.3 L 8.1 L (12.9-16.9) g/dL Hct 30.3 L 25.9 L (37.5-50.1) % Plt Count 147 (140-400) K/mcL Neutrophils # 3.5 (1.6-8.9) K/mcL BMP 04/20/18 04/21/18 11:16 03:06 Sodium 134 L Potassium 4.7 5.2 H Chloride 109 H Carbon Dioxide 14 L BUN 50 H Creatinine 1.54 H Glucose 116 H Calcium 9.3 Liver Function 04/20/18 Range/Units 11:16 Total Bilirubin 2.0 H (0.3-1.0) mg/dL Direct Bilirubin 0.6 H (0.0-0.2) mg/dL AST 26 (13-39) Units/L ALT 13 (7-52) Units/L Alkaline Phosphatase 139 H (34-104) Units/L Albumin 4.2 (3.5-5.7) g/dL - ABG Interpretation ABG results: PT/INR, D-dimer PT 13.4 Seconds (9.4-12.1) H 04/20/18 03:13 Consult Discharge Plan - Plan Referrals: NONE,PCP [Primary Care Provider] - <Janey Clarke - Last Filed: 04/21/18 16:26> Hospitalist Progress Note - Encounter Date of Encounter: 04/21/18 - Exam Vitals: Temp Pulse Resp BP Pulse Ox 97.5 F L 86 15 99/63 100 04/21/18 15:45 04/21/18 15:45 04/21/18 15:45 04/21/18 15:45 04/21/18 15:45 - Assessment and Plan (1) Atrial fibrillation Current Visit: No Status: Chronic (2) Gout Current Visit: No Status: Chronic (3) Chronic venous stasis dermatitis of both lower extremities Current Visit: No Status: Chronic (4) Obese Current Visit: No Status: Acute (5) Altered mental status Current Visit: No Status: Resolved (6) Iron deficiency Current Visit: No Status: Chronic (7) Hypothyroid Current Visit: No Status: Chronic (8) Hepatic encephalopathy Current Visit: Yes Status: Resolved (9) Hyperkalemia Current Visit: Yes Status: Acute (10) History of cirrhosis Current Visit: No Status: Chronic (11) Anemia Current Visit: No Status: Chronic (12) Hypertension Current Visit: No Status: Chronic (13) DVT prophylaxis Current Visit: Yes Status: Acute (14) JOSSELINE (acute kidney injury) Current Visit: Yes Status: Acute - Time Spent with Patient Total time spent is greater than 50% in coordination of care (as documented) at patient's floor/unit and/or counseling patient: Internal Medicine: Result - Labs CBC & Chem 7: 04/21/18 12:06 04/21/18 03:06 Labs: Short CBC 04/21/18 04/21/18 Range/Units 03:06 12:06 WBC 4.9 (4.3-11.1) K/mcL Hgb 8.1 L 8.2 L (12.9-16.9) g/dL Hct 25.9 L 26.7 L (37.5-50.1) % Plt Count 147 (140-400) K/mcL Neutrophils # 3.5 (1.6-8.9) K/mcL BMP 04/21/18 03:06 Sodium 134 L Potassium 5.2 H Chloride 109 H Carbon Dioxide 14 L BUN 50 H Creatinine 1.54 H Glucose 116 H Calcium 9.3 - ABG Interpretation ABG results: PT/INR, D-dimer PT 13.4 Seconds (9.4-12.1) H 04/20/18 03:13 - Attending Attestation I saw and assessed this patient and agree with plan per resident Plan Acute decompensated liver cirrhosis with acute metabolic encephalopathy. s/p paracentesis. Improved with lactulose. GI following and plan for endscopy this AM to r/o AVM, PUD, varices and other possible etiology for possible GI bleed Hyperkalemia. Kayexalate as needed <Modesto Zimmerman S - Last Filed: 04/21/18 11:27> (3) Hypothyroid Qualifiers: Hypothyroidism type: unspecified Qualified Code(s): E03.9 - Hypothyroidism, unspecified (4) Atrial fibrillation Qualifiers: Atrial fibrillation type: chronic Qualified Code(s): I48.2 - Chronic atrial fibrillation (5) Gout Qualifiers: Gout site: unspecified site Gout etiology: unspecified cause Chronicity: chronic Presence of tophus: without tophus Qualified Code(s): M1A.9XX0 - Chronic gout, unspecified, without tophus (tophi) (7) Obese Qualifiers: Obesity type: due to excess calories Body mass index: BMI 39.0-39.9 (8) Altered mental status Qualifiers: Altered mental status type: delirium Qualified Code(s): R41.0 - Disorientation, unspecified (11) Anemia Qualifiers: Anemia type: iron deficiency Iron deficiency anemia type: unspecified iron deficiency Qualified Code(s): D50.9 - Iron deficiency anemia, unspecified (12) Hypertension Qualifiers: Hypertension type: essential hypertension Qualified Code(s): I10 - Essential (primary) hypertension <Janey Clarke - Last Filed: 04/21/18 16:26> (1) Atrial fibrillation Qualifiers: Atrial fibrillation type: chronic Qualified Code(s): I48.2 - Chronic atrial fibrillation (2) Gout Qualifiers: Gout site: unspecified site Gout etiology: unspecified cause Chronicity: chronic Presence of tophus: without tophus Qualified Code(s): M1A.9XX0 - Chronic gout, unspecified, without tophus (tophi) (4) Obese Qualifiers: Obesity type: due to excess calories Body mass index: BMI 39.0-39.9 (5) Altered mental status Qualifiers: Altered mental status type: delirium Qualified Code(s): R41.0 - Disorientation, unspecified (7) Hypothyroid Qualifiers: Hypothyroidism type: unspecified Qualified Code(s): E03.9 - Hypothyroidism, unspecified (11) Anemia Qualifiers: Anemia type: iron deficiency Iron deficiency anemia type: unspecified iron de ficiency Qualified Code(s): D50.9 - Iron deficiency anemia, unspecified (12) Hypertension Qualifiers: Hypertension type: essential hypertension Qualified Code(s): I10 - Essential (primary) hypertension
[2018-04-21] MEDS: Tiotropium 18 MCG inhalation IH SCH (10:37)
[2018-04-21 12:21] LABS: Hematocrit 26.7 % (37.5-50.1); Hemoglobin 8.2 g/dL (12.9-16.9)
[2018-04-21] MEDS ORDERED: Lidocaine -MPF 2% 2 ML VIAL ONE (15:15)
[2018-04-21] MEDS: Diltiazem CD (24hr) 120 MG CAPSULE PO SCH ×2 (16:28→18:48)
[2018-04-22 03:34] LABS: Basophils % 0.7 %; Eosinophils # 0.1 K/mcL (0.0-0.6); Eosinophils % 2.2 %; Hematocrit 25.4 % (37.5-50.1); Hemoglobin 7.7 g/dL (12.9-16.9); Immature Granulocytes % 0.2 % (0-4); Lymphocytes # 0.6 K/mcL (0.6-4.6); Lymphocytes % 13.5 %; Mean Corpuscular HGB Conc 30.3 g/dL (31.6-35.5); Mean Corpuscular Hemoglobin 24.9 pg (28.0-33.3); Mean Corpuscular Volume 82.2 fL (83.0-100.0); Mean Platelet Volume 10.9 fL (9.4-12.4); Monocytes # 0.7 K/mcL (0.0-1.3); Monocytes % 15.7 %; Neutrophils # 2.8 K/mcL (1.6-8.9); Platelet Count 129 K/mcL (140-400); Red Blood Count 3.09 M/mcL (4.19-5.50); Red Cell Distribution Width 23.1 % (11.5-14.5); Segmented Neutrophils % 67.7 %
[2018-04-22 03:50] LABS: Potassium 5.3 mEq/L (3.5-5.1)
[2018-04-22 03:57] LABS: Ovalocytes 1+ (Not Present); Platelet Estimate Slight Decrease (Normal); Poikilocytosis 1+ (Not Present)
[2018-04-22 03:58] LABS: Anisocytosis 1+ (Not Present)
[2018-04-22] MEDS: Levothyroxine 25 MCG TABLET PO SCH (05:18)
[2018-04-22] MEDS: Lactulose Oral Soln 20 GM/30 ML UDC PO SCH ×3 (07:57→20:00)
[2018-04-22] MEDS: Pregabalin 50 MG CAPSULE PO SCH ×3 (07:58→20:00)
[2018-04-22] MEDS: cefTRIAXone 2,000 MG in Water for inj. (sterile) 20 ML 20 ML IVP SCH (07:58)
[2018-04-22 08:37] LABS: Fluid Source for Albumin PERITONEAL
[2018-04-22] MEDS ORDERED: SPIRONOLACTONE 200 MG PO SCH (10:15)
--- NOTE | 2018-04-22 10:36 | Event Note ---
Date of Encounter: 04/22/18 Time of Encounter: 10:35 Recommend TIPS procedure. Consult to IR ordered.
[2018-04-22] MEDS: Tiotropium 18 MCG inhalation IH SCH (12:00)
[2018-04-22] MEDS: Albumin 25% 25gram/100mL 25 GM/100 ML IV.SOLN IVC SCH ×2 (14:15→16:45)
--- NOTE | 2018-04-22 14:42 | Internal Med Progress Note ---
<JosedomingoJay alfordMadiha E - Last Filed: 04/22/18 15:21> Hospitalist Progress Note - Encounter Date of Encounter: 04/22/18 Time of Encounter: 09:00 - Subjective Interval History: Mr. Lomeli was seen at bedside today. He was in a good mood and joking with the physical therapist, his , and myself. He is feeling much better. He states other than having to use the restroom frequently he does not have any symptoms. He denies nausea, vomiting, aggravation, headache, dizziness, chest pain, abdominal pain - Exam Vitals: Temp Pulse Resp BP Pulse Ox 98.0 F 119 16 113/64 100 04/22/18 10:59 04/22/18 10:59 04/22/18 10:59 04/22/18 10:59 04/22/18 10:59 Exam: General: AAOx3, answers questions appropriately, no distress Cardio: RRR, no murmurs, rubs, or gallops Pulm: CTAB, no wheezing or rhonchi Abdominal: normal bowel sounds, no rigidity, no noticeable shifting dullness Skin: caput medusa noticed, some spider angiomas, otherwise warm, dry intact Extremities: vascular changes noted on both lower legs, no pedal edema - Assessment and Plan (1) Hepatic encephalopathy Current Visit: Yes Status: Resolved Assessment and Plan: Plan: rocephin 2g daily, day 4 cardiac diet culture pending ontinue Aldactone, lasix and propanolol continue lactulose for a total of 3 bowel movements per day --> titrate up to 45g TID today pt needs to be on high protein diet once able to eat continue to monitor CBC, BMP GI recommends TIPS procedure (2) JOSSELINE (acute kidney injury) Current Visit: Yes Status: Acute Assessment and Plan: Cr. 1.67 slightly elevated from yesterday. avoid nephrotoxins continue to monitor bp/cbc (3) Hyperkalemia Current Visit: Yes Status: Acute Assessment and Plan: 5.3 today 5.2 yesterday, one dose of kexcelate continue to monitor (4) Ascites Current Visit: No Status: Acute Assessment and Plan: 10L drained via paracentisis on day of admission (5) Obese Current Visit: No Status: Acute Assessment and Plan: BMI 30.9 lifestyle changes (6) Anemia Current Visit: No Status: Chronic Assessment and Plan: On Ferrous sulfate continue home med (7) Chronic venous stasis dermatitis of both lower extremities Current Visit: No Status: Chronic Assessment and Plan: chronic changes to lower extremities, no pedal edema noted (8) Gout Current Visit: No Status: Chronic Assessment and Plan: Chronic, currently on allopurinol, continue this (9) Hypertension Current Visit: No Status: Chronic Assessment and Plan: hold bp meds (10) Hypothyroid Current Visit: No Status: Chronic Assessment and Plan: continue home synthroid (11) Iron deficiency Current Visit: No Status: Chronic Assessment and Plan: on ferrous sulfate, continue home medications (12) Atrial fibrillation Current Visit: No Status: Chronic Assessment and Plan: Chronic with home medications of coumadin, cardizem, digoxin. Coumadin currently held DVT Prophylaxis: scd - Time Spent with Patient Total time spent is greater than 50% in coordination of care (as documented) at patient's floor/unit and/or counseling patient: Plan of Care Discussed with: patient Internal Medicine: Result - Labs CBC & Chem 7: 04/22/18 03:20 04/22/18 03:20 Labs: Short CBC 04/22/18 Range/Units 03:20 WBC 4.2 L (4.3-11.1) K/mcL Hgb 7.7 L (12.9-16.9) g/dL Hct 25.4 L (37.5-50.1) % Plt Count 129 L (140-400) K/mcL Neutrophils # 2.8 (1.6-8.9) K/mcL BMP 04/22/18 03:20 Sodium 134 L Potassium 5.3 H Chloride 111 H Carbon Dioxide 14 L BUN 48 H Creatinine 1.67 H Glucose 104 Calcium 9.0 - ABG Interpretation ABG results: PT/INR, D-dimer PT 13.4 Seconds (9.4-12.1) H 04/20/18 03:13 Consult Discharge Plan - Plan Referrals: NONE,PCP [Primary Care Provider] - <Janey Clarke - Last Filed: 04/22/18 16:47> Hospitalist Progress Note - Encounter Date of Encounter: 04/22/18 - Exam Vitals: Temp Pulse Resp BP Pulse Ox 97.5 F L 105 16 118/80 100 04/22/18 15:43 04/22/18 15:43 04/22/18 15:43 04/22/18 15:43 04/22/18 15:43 - Assessment and Plan (1) Atrial fibrillation Current Visit: No Status: Chronic (2) Gout Current Visit: No Status: Chronic (3) Chronic venous stasis dermatitis of both lower extremities Current Visit: No Status: Chronic (4) Obese Current Visit: No Status: Acute (5) Altered mental status Current Visit: No Status: Resolved (6) Iron deficiency Current Visit: No Status: Chronic (7) Hypothyroid Current Visit: No Status: Chronic (8) Hepatic encephalopathy Current Visit: Yes Status: Resolved (9) Hyperkalemia Current Visit: Yes Status: Acute (10) History of cirrhosis Current Visit: No Status: Chronic (11) Anemia Current Visit: No Status: Chronic (12) Hypertension Current Visit: No Status: Chronic (13) DVT prophylaxis Current Visit: Yes Status: Acute (14) JOSSELINE (acute kidney injury) Current Visit: Yes Status: Acute - Time Spent with Patient Total time spent is greater than 50% in coordination of care (as documented) at patient's floor/unit and/or counseling patient: Internal Medicine: Result - Labs CBC & Chem 7: 04/22/18 03:20 04/22/18 03:20 Labs: Short CBC 04/22/18 Range/Units 03:20 WBC 4.2 L (4.3-11.1) K/mcL Hgb 7.7 L (12.9-16.9) g/dL Hct 25.4 L (37.5-50.1) % Plt Count 129 L (140-400) K/mcL Neutrophils # 2.8 (1.6-8.9) K/mcL BMP 04/22/18 03:20 Sodium 134 L Potassium 5.3 H Chloride 111 H Carbon Dioxide 14 L BUN 48 H Creatinine 1.67 H Glucose 104 Calcium 9.0 - ABG Interpretation ABG results: PT/INR, D-dimer PT 13.4 Seconds (9.4-12.1) H 04/20/18 03:13 - Attending Attestation I saw and assessed this patient and agree with plan per resident Plan Acute decompensated liver cirrhosis with acute metabolic encephalopathy. s/p paracentesis. Improved with lactulose. s/p endoscopy showing varices with no active bleeding. GI recommend TIPS procedure. IR consulted. OBtain 2D echo to a ssess RVSP Hyperkalemia. Kayexalate as needed JOSSELINE with likely hepatorenal syndrome. On lasix. Albumin as needed. Renal recs appreciated <Janey Clarke - Last Filed: 04/22/18 16:47> (1) Atrial fibrillation Qualifiers: Atrial fibrillation type: chronic Qualified Code(s): I48.2 - Chronic atrial fibrillation (2) Gout Qualifiers: Gout site: unspecified site Gout etiology: unspecified cause Chronicity: chronic Presence of tophus: without tophus Qualified Code(s): M1A.9XX0 - Chronic gout, unspecified, without tophus (tophi) (4) Obese Qualifiers: Obesity type: due to excess calories Body mass index: BMI 39.0-39.9 (5) Altered mental status Qualifiers: Altered mental status type: delirium Qualified Code(s): R41.0 - Disorientation, unspecified (7) Hypothyroid Qualifiers: Hypothyroidism type: unspecified Qualified Code(s): E03.9 - Hypothyroidism, unspecified (11) Anemia Qualifiers: Anemia type: iron deficiency Iron deficiency anemia type: unspecified iron deficiency Qualified Code(s): D50.9 - Iron deficiency anemia, unspecified (12) Hypertension Qualifiers: Hypertension type: essential hypertension Qualified Code(s): I10 - Essential (primary) hypertension
--- NOTE | 2018-04-22 15:23 | Nephrology Consult Note ---
Date of Encounter: 04/22/18 Time of Encounter: 15:13 Assessment and Plan (1) JOSSELINE (acute kidney injury) Current Visit: Yes Status: Acute In February of this year GFR was greater than 60, is now 42. Avoid nephrotoxins and renal dose all medications. Serum and urine studies ordered. Retroperitoneal ultrasound ordered. Strict I&O. (2) Hyperkalemia Current Visit: Yes Status: Acute Has been given 30 of Kayexalate today. Will order an additional dose of 15 today. K is 5.3, will monitor. Renal diet, when able to eat. (3) Acute hepatic encephalopathy Current Visit: No Status: Acute Per primary. (4) Ascites Current Visit: No Status: Acute Per primary. Qualifiers: Ascites type: other type Qualified Code(s): R18.8 - Other ascites History of Present Illness - Reason for Consult Consult date: 04/22/18 Acute Kidney Injury - Chief Complaint AMS - History of Present Illness Mr. Lomeli is a 63-year-old male who presented to [facility] with altered mental status. Upon arriving at the ER potassium was 5.7 EKG reflected A. fib with a heart rate of 68, no ST segment changes. A paracentesis was performed at bedside in 10 L of fluid was taken off and was sent for analysis. PMH:atrial fibrillation, cirrhosis, COPD, DVT, hypertension. Before arriving appetite ER the patient was feeling fine at home. Denies fever, chills, nausea, vomiting, or diarrhea. Patient reports he was urinating adequately at home without complication. He reports he has never seen a yard motor operator in the past or been told he has CKD or been on HD. He also denies FH of CKD or HD. He denies chronic NSAID use. Home medication list reviewed and only nephrotoxic agent is Lasix. He is a former smoker he did occasionally drink alcohol, but quit approximately 3 weeks ago, and denies any illicit drug use. Urine sodium and eosinophil ordered. Retroperitoneal US ordered. Uric Acid and CPK also ordered for in the morning. GFR in February of this year was normal, GFR is now 42. Hepatrorenal syndrome could be a possibility, patient is going for a TIPS procedure tomorrow. Past Med Surg Social Fam HX - Past Medical History Medical history: atrial fibrillation, cirrhosis, COPD, DVT, hypertension, other Additional medical history: Gout Psychiatric history: no psych history - Past Surgical History Surgical History: herniorrhaphy, orthopedic, other, other Additional surgical history: cirrhosis, carpal tunnel surgery, herniated disc repair, left arm surgery, b/l knees, r wrist - Social History Smoking Status: Former smoker Smokeless Tobacco Status: No Alcohol use: none Drug use: none - Family History Father Hx Family Endocrine Disorder: Yes Medications and Allergies Allopurinol [Zyloprim 300 MG] 300 mg PO DAILY tablet 10/24/16 [Rx] Digoxin [Lanoxin] 0.25 mg PO DAILY tablet 10/24/16 [Rx] Pregabalin [Lyrica] 200 mg PO TID 11/09/17 [History] Ferrous Sulfate [Iron] 325 mg PO DAILY 11/10/17 [History] Diltiazem CD (24hr) [Cardizem CD] 120 mg PO QPM #30 cap.er.24h 11/13/17 [Rx] Propranolol [Inderal] 20 mg PO BID #60 tablet 11/13/17 [Rx] Furosemide [Lasix] 40 mg PO DAILY 02/06/18 [History] Spironolactone [Aldactone] 200 mg PO DAILY 02/06/18 [History] Tiotropium [place] [Spiriva Respimat] 2 puff IH DAILY 02/06/18 [History] Warfarin Sodium 4 mg PO DAILY 02/06/18 [History] Lactulose [Enulose] 10 gm PO TID 02/17/18 [History] Albuterol Sulfate [Ventolin Hfa] 2 puff IH Q4H PRN 04/20/18 [History] Allergy/AdvReac Type Severity Reaction Status Date / Time tramadol AdvReac Itching Verified 01/15/18 16:18 Review of Systems All Systems review (narrative): The remainder of the systems are negative. Constitutional: no chills, no fatigue, no fever(s), no lethargy Cardiovascular: no chest pain, no dyspnea, no edema, no lightheadedness, no orthopnea Respiratory: no dyspnea, no hemoptysis, no wheezing Gastrointestinal: no abdominal pain, no diarrhea, no melena, no nausea, no vomiting Genitourinary Male: no hematuria Exam - Vital Signs Vital signs: Initial Vital Signs Temp Pulse Resp BP Pulse Ox 97.6 F 85 11 108/55 100 04/19/18 13:00 04/19/18 13:00 04/19/18 13:00 04/19/18 13:00 04/19/18 13:00 Vital Signs - Last 8 Hours Temp Pulse Resp BP Pulse Ox 04/22/18 10:59 98.0 F 119 16 113/64 100 04/22/18 08:11 100 Intake and Output 04/21/18 04/22/18 04/22/18 23:59 07:59 15:59 Intake Total 480 / 480 Balance 480 / 480 Intake: Oral 480 / 480 Other: Weight 118.1 kg Patient Weight 04/22/18 23:59 Weight 118.1 kg - General Appearance General appearance: well-developed, well-nourished EENT: ATNC, hearing intact, vision intact Neck: supple Respiratory: clear Cardiology: edema (+3 pitting edema noted to bilat lower extremities.), normal S1, normal S2 Gastrointestinal: normoactive bowel sounds, no tenderness, no guarding, obese, distended Integumentary: no rash, warm and dry, hyperpigmentation, chronic venous stasis Psychiatric: mood/affect appropriate, cooperative Results - Lab Results 04/22/18 03:20 04/22/18 03:20 Most recent lab results Calcium 9.0 mg/dL (8.6-10.3) 04/22/18 03:20 Consult Discharge Plan - Plan Referrals: NONE,PCP [Primary Care Provider] -
--- NOTE | 2018-04-22 15:44 | IR Progress Note ---
Narrative: Improved mental status. Feels better today. No new complaints. Vital Signs: Vital Signs/O2 Sat, Most Current Temp Pulse Resp BP Pulse Ox 98.0 F 119 16 113/64 100 04/22/18 10:59 04/22/18 10:59 04/22/18 10:59 04/22/18 10:59 04/22/18 10:59 Recent Labs: Lab Results 04/22/18 04/22/18 04/21/18 03:20 03:20 12:06 WBC 4.2 L RBC 3.09 L Hgb 7.7 L 8.2 L Hct 25.4 L 26.7 L MCV 82.2 L MCH 24.9 L MCHC 30.3 L RDW 23.1 H Plt Count 129 L MPV 10.9 Neutrophils # 2.8 Lymphocytes # 0.6 Monocytes # 0.7 Eosinophils # 0.1 Basophils # 0.0 Sodium 134 L Potassium 5.3 H Chloride 111 H Carbon Dioxide 14 L BUN 48 H Creatinine 1.67 H Est GFR ( Amer) 51 L Est GFR (Non-Af Amer) 42 L BUN/Creatinine Ratio 29 H Glucose 104 Calcium 9.0 04/21/18 04/21/18 04/20/18 03:06 03:06 12:01 WBC 4.9 RBC 3.14 L Hgb 8.1 L 9.3 L Hct 25.9 L 30.3 L MCV 82.5 L MCH 25.8 L MCHC 31.3 L RDW 23.1 H Plt Count 147 MPV 11.5 Neutrophils # 3.5 Lymphocytes # 0.6 Monocytes # 0.7 Eosinophils # 0.1 Basophils # 0.0 Sodium 134 L Potassium 5.2 H Chloride 109 H Carbon Dioxide 14 L BUN 50 H Creatinine 1.54 H Est GFR ( Amer) 56 L Est GFR (Non-Af Amer) 46 L BUN/Creatinine Ratio 32 H Glucose 116 H Calcium 9.3 04/20/18 04/20/18 04/20/18 11:16 03:13 03:13 WBC 6.2 RBC 3.14 L Hgb 8.0 L Hct 25.9 L MCV 82.5 L MCH 25.5 L MCHC 30.9 L RDW 23.2 H Plt Count 149 MPV 10.4 Neutrophils # 5.1 Lymphocytes # 0.3 L Monocytes # 0.7 Eosinophils # 0.1 Basophils # 0.0 Sodium 140 Potassium 4.7 5.7 H Chloride 116 H Carbon Dioxide 15 L BUN 54 H Creatinine 1.45 H Est GFR ( Amer) 60 Est GFR (Non-Af Amer) 49 L BUN/Creatinine Ratio 37 H Glucose 92 Calcium 9.6 04/19/18 04/19/18 16:35 16:35 WBC 4.9 RBC 3.24 L Hgb 8.2 L Hct 26.5 L MCV 81.8 L MCH 25.3 L MCHC 30.9 L RDW 23.2 H Plt Count 159 MPV 11.1 Neutrophils # 3.9 Lymphocytes # 0.4 L Monocytes # 0.7 Eosinophils # 0.0 Basophils # 0.0 Sodium 134 L Potassium 5.1 Chloride 111 H Carbon Dioxide 13 L BUN 56 H Creatinine 1.50 H Est GFR ( Amer) 58 L Est GFR (Non-Af Amer) 48 L BUN/Creatinine Ratio 37 H Glucose 107 H Calcium 8.9 Assessment and Plan 63 male with cirrhosis and portal hypertension, with significant varices in the upper abdomen and recurrent ascites. Request for TIPS placement by GI due to the risk of variceal bleeding and refractory ascites, which is requiring frequent large volume paracentesis. I discussed the TIPS procedure at length with the patient and his . His MELD score is 18, which puts him at moderate risk for decompensation and possible following TIPS. However, he is at high risk for catastrophic variceal bleeding, and has lifestyle debilitation due to his need for frequent paracentesis, both of which the TIPS can help. I was upfront with the family and said that a TIPS could improve his quality of life, although it could make it much worse. We also discussed the possibility of worsening hepatic encephalopathy from a TIPS, although that has not been an ongoing issue for the patient. After the discussion of the risks, benefits, and procedure, the patient and his have elected to proceed with TIPS placement. The plan is for this to be done on 04/23, and most likely under general anesthesia. They are aware that if there are elevated right heart pressures, it may be not safe to proceed with the TIPS. They had no further questions at the conclusion of our encounter. Adolph Meraz MD
[2018-04-22] MEDS: Diltiazem CD (24hr) 120 MG CAPSULE PO SCH (18:08)
[2018-04-22 18:59] LABS: Bilirubin,Urine Negative (Negative); Blood,Urine Large (Negative); Clarity,Urine Clear (Clear); Color,Urine Yellow (Yellow); Glucose,Urine (UA) Normal (Normal); Ketones,Urine Negative (Negative); Leukocyte Esterase,Urine Negative (Negative); Nitrite,Urine Negative (Negative); PH,Urine 5.5 pH Units (5.0-8.0); Protein,Urine Negative (Neg-Trace); Specific Gravity,Urine 1.025 (1.010-1.025); Urobilinogen,Urine Normal (Normal)
[2018-04-22 19:02] LABS: Bacteria,Urine None Seen per hpf (None-Few); Hyaline Casts,Urine None Seen per lpf (None-Few); RBC,Urine 50-100 per hpf (0-3); Squamous Epithelial Cell,Urine Few per lpf (None-Few); WBC,Urine 0-3 per hpf (0-3)
[2018-04-22] MEDS: Ondansetron 4 MG/2 ML VIAL IVP PRN (19:57)
[2018-04-22] MEDS: *HR* Metoprolol 5 MG/5 ML VIAL IVP PRN (21:19)
--- NOTE | 2018-04-22 21:44 | Anesthesia Evaluation PreOp ---
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: Other (altered mental status due to hepatic encephalopathy on pres entation) Other Medical History: Hepatic (liver failure with alcoholic cirrhosis, ascites, portal HTN), Renal (acute renal injury), Bleeding, Thyroid (hypothyroidism), Other (grade II varices per EGD) Anesthesia History: No Prior Anesthetic Complications Alcohol Use: none Drug use: none Medications and Allergies Allopurinol [Zyloprim 300 MG] 300 mg PO DAILY tablet 10/24/16 [Rx] Digoxin [Lanoxin] 0.25 mg PO DAILY tablet 10/24/16 [Rx] Pregabalin [Lyrica] 200 mg PO TID 11/09/17 [History] Ferrous Sulfate [Iron] 325 mg PO DAILY 11/10/17 [History] Diltiazem CD (24hr) [Cardizem CD] 120 mg PO QPM #30 cap.er.24h 11/13/17 [Rx] Propranolol [Inderal] 20 mg PO BID #60 tablet 11/13/17 [Rx] Furosemide [Lasix] 40 mg PO DAILY 02/06/18 [History] Spironolactone [Aldactone] 200 mg PO DAILY 02/06/18 [History] Tiotropium [place] [Spiriva Respimat] 2 puff IH DAILY 02/06/18 [History] Warfarin Sodium 4 mg PO DAILY 02/06/18 [History] Lactulose [Enulose] 10 gm PO TID 02/17/18 [History] Albuterol Sulfate [Ventolin Hfa] 2 puff IH Q4H PRN 04/20/18 [History] Allergy/AdvReac Type Severity Reaction Status Date / Time tramadol AdvReac Itching Verified 01/15/18 16:18 - Meds/Allergy Pre-op Review Medications Reviewed: Yes Allergies Reviewed: Yes Beta Blockers on Current Med List: Yes (metoprolol) If Beta Blockers taken, Date/Time (Last Dose taken): 04-22-18 metoprolol 21:19 Anesthesia Results - Labs 04/22/18 03:20 04/22/18 03:20 - Imaging EKG: report reviewed, image reviewed (ATRIAL FIBRILLATION INTRAVENTRICULAR CONDUCTION DELAY) Additional studies: TTE : EV/EV echocardiogram w enhance Impressions: LVEF 60-65%. Mild concentric left ventricular hypertrophy. Indeterminate diastolic function. Definity echo contrast was used. Normal right ventricular structure and function. Mild mitral regurgitation. Mild tricuspid regurgitation. Moderate-severe aortic stenosis. Mild pulmonary hypertension. Anesthesia Exam Last Vital Signs Temp 97.5 F L 04/22/18 15:43 Pulse 105 04/22/18 15:43 Resp 16 04/22/18 15:43 BP 118/80 04/22/18 15:43 Pulse Ox 100 04/22/18 15:43 Weight: 118 kg - HEENT Pupil (Motor): Pupils equal, EOMI Mallampati: I Teeth: Edentulous Oral Opening: Greater than 3 Anesthesia Assess/Plan ASA Score: 4 Anesthetic Plan: General Monitoring Plan: Standard Monitors Recovery Plan: PACU <Ehsan Blue - Last Filed: 04/23/18 07:48> Date of Encounter: 04/23/18 Time of Encounter: 07:29 Anesthesia Results - Labs 04/23/18 06:07 04/23/18 04:24 Anesthesia Exam Vital Signs/O2 Sat, Most Current Temp Pulse Resp BP Pulse Ox 98.7 F 103 16 99/63 100 04/23/18 06:37 04/23/18 06:37 04/23/18 06:37 04/23/18 06:37 04/23/18 06:37 NPO (# of Hours): > 8 hrs Pain Scale: 0 Pain Scale Used: Numeric (1 - 10) - COMMUNITY MARKETING COORDINATOR LOC: Oriented COMMUNITY MARKETING COORDINATOR Motor: Normal RUE, Normal LUE, Normal RLE, Normal LLE, Normal Face COMMUNITY MARKETING COORDINATOR Sensory: Normal: RUE, LUE, RLE, LLE, Face - Cardiac Rhythm: Regular Murmur: None JVD: No Carotid Bruit: No - Pulmonary Breath Sounds: bilateral Clear Respiratory Effort: Symmetrical Anesthesia Assess/Plan Monitoring Plan: A-Line
[2018-04-23 05:15] LABS: Calcium 9.3 mg/dL (8.6-10.3); Potassium 5.6 mEq/L (3.5-5.1)
[2018-04-23] MEDS: Levothyroxine 25 MCG TABLET PO SCH (05:25)
[2018-04-23 06:43] LABS: Basophils % 0.7 %; Eosinophils # 0.1 K/mcL (0.0-0.6); Eosinophils % 2.4 %; Hemoglobin 8.1 g/dL (12.9-16.9); Immature Granulocytes % 0.4 % (0-4); Lymphocytes # 0.6 K/mcL (0.6-4.6); Lymphocytes % 12.5 %; Mean Corpuscular HGB Conc 31.2 g/dL (31.6-35.5); Mean Corpuscular Hemoglobin 25.8 pg (28.0-33.3); Mean Corpuscular Volume 82.8 fL (83.0-100.0); Mean Platelet Volume 11.7 fL (9.4-12.4); Monocytes # 0.7 K/mcL (0.0-1.3); Monocytes % 15.8 %; Neutrophils # 3.1 K/mcL (1.6-8.9); Platelet Count 133 K/mcL (140-400); Red Blood Count 3.14 M/mcL (4.19-5.50); Red Cell Distribution Width 23.1 % (11.5-14.5); Segmented Neutrophils % 68.2 %
[2018-04-23] MEDS ORDERED: Heparin 1,000 UNITS/500 mL 500 ML ONE ×4 (07:21→10:33)
[2018-04-23] MEDS ORDERED: *HR* FentaNYL (PF) 100 MCG/2 ML VIAL ONE ×2 (07:21→11:03)
[2018-04-23] MEDS ORDERED: *HR* Midazolam HCl 2 MG/2 ML VIAL ONE (07:21)
--- NOTE | 2018-04-23 07:23 | Anesthesia Evaluation PreOp ---
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 Significant HX Other Medical History: Hepatic (liver failure with alcoholic cirrhosis, ascites, portal HTN), Bleeding (anemia), Thyroid (hypothyroidism) Anesthesia History: No Prior Anesthetic Complications Alcohol Use: none Drug use: none), CHF (Mod-Severe Aortic stenosis per TTE ), Arrhythmia (Afib rate 61) Pulmonary History: Former smoker, COPD Other Medical History: Hepatic (liver failure with alcoholic cirrhosis, ascites, portal HTN), Thyroid (Hypo) Anesthesia History: No Prior Anesthetic Complications, Past Anesthesia (EGD) Alcohol Use: none Drug use: none Medications and Allergies Allopurinol [Zyloprim 300 MG] 300 mg PO DAILY tablet 10/24/16 [Rx] Digoxin [Lanoxin] 0.25 mg PO DAILY tablet 10/24/16 [Rx] Pregabalin [Lyrica] 200 mg PO TID 11/09/17 [History] Ferrous Sulfate [Iron] 325 mg PO DAILY 11/10/17 [History] Diltiazem CD (24hr) [Cardizem CD] 120 mg PO QPM #30 cap.er.24h 11/13/17 [Rx] Propranolol [Inderal] 20 mg PO BID #60 tablet 11/13/17 [Rx] Furosemide [Lasix] 40 mg PO DAILY 02/06/18 [History] Spironolactone [Aldactone] 200 mg PO DAILY 02/06/18 [History] Tiotropium [place] [Spiriva Respimat] 2 puff IH DAILY 02/06/18 [History] Warfarin Sodium 4 mg PO DAILY 02/06/18 [History] Lactulose [Enulose] 10 gm PO TID 02/17/18 [History] Albuterol Sulfate [Ventolin Hfa] 2 puff IH Q4H PRN 04/20/18 [History] Allergy/AdvReac Type Severity Reaction Status Date / Time tramadol AdvReac Itching Verified 01/15/18 16:18 - Meds/Allergy Pre-op Review Medications Reviewed: Yes Allergies Reviewed: Yes Beta Blockers on Current Med List: Yes If Beta Blockers taken, Date/Time (Last Dose taken): 21:19 04/22/2018 Anesthesia Results - Labs 04/23/18 06:07 04/23/18 04:24 TTE : EV/EV echocardiogram w enhance Impressions: LVEF 60-65%. Mild concentric left ventricular hypertrophy. Indeterminate diastolic function. Definity echo contrast was used. Normal right ventricular structure and function. Mild mitral regurgitation. Mild tricuspid regurgitation. Moderate-severe aortic stenosis. Mild pulmonary hypertension. Anesthesia Exam Vital Signs/O2 Sat, Most Current Temp Pulse Resp BP Pulse Ox 98.7 F 103 16 99/63 100 04/23/18 06:37 04/23/18 06:37 04/23/18 06:37 04/23/18 06:37 04/23/18 06:37 NPO (# of Hours): > 8 hrs Pain Scale: 0 Pain Scale Used: Numeric (1 - 10) - HEENT Pupil (Motor): Pupils equal, EOMI Mallampati: I Teeth: Edentulous Oral Opening: Greater than 3 - JEWEL WAXER LOC: Oriented JEWEL WAXER Motor: Normal RUE, Normal LUE, Normal RLE, Normal LLE, Normal Face JEWEL WAXER Sensory: Normal: RUE, LUE, RLE, LLE, Face - Cardiac Rhythm: Regular Murmur: None JVD: No Carotid Bruit: No - Pulmonary Breath Sounds: bilateral Clear Respiratory Effort: Symmetrical Anesthesia Assess/Plan ASA Score: 4 Anesthetic Plan: General Autologous Blood: Yes Monitoring Plan: Standard Monitors, A-Line Recovery Plan: PACU
[2018-04-23] MEDS ORDERED: 0.9 % Sodium Chloride 500 ML ONE ×2 (07:30→09:16)
[2018-04-23] MEDS: Tiotropium 18 MCG inhalation IH SCH (07:33)
--- NOTE | 2018-04-23 08:49 | History & Physical Report ---
Date of Encounter: 04/23/18 Time of Encounter: 08:47 24 Hour HP Update - Instructions Instructions: If the History and Physical is less than 30 days old and was completed prior to A.M. admission and or procedure and has NOT been updated on calendar day of procedure please complete this update prior to performing procedure. - Update Patient reports changes in Medical Condition: No Changes in examination, assessment, or condition: No Changes in Medication: No Preop tests/diagnostics Reviewed: Yes Pre-Op MRSA Screen: Negative Surgery Remains Indicated: Yes Consent for Planned Operative Procedure(s) Verified: Yes - Pre-Operative Checklist Preoperative Checklist Indicated: Yes Prophylactic Antibiotic Ordered: Yes Home Medications Include Beta Jon: No Beta Jon Taken Today (Day of Surgery): No Beta Jon Taken Yesterday (Day Prior to Surgery): No Is VTE Prophylaxis Indicated?: NO - Attending Attestation Patient is 63 yo male with history of cirrhosis, portal HTN, and esophageal varices. Plan is for transjugular intrahepatic portosystemic shunt creation. Benefits and risks including bleeding, infecion, encephalopathy, heart failure, and possible were discussed with patient. Patient understands and agrees. Informed consent was obtained.
[2018-04-23 08:56] LABS: Anisocytosis 2+ (Not Present); Platelet Estimate Slight Decrease (Normal)
[2018-04-23] MEDS: cefTRIAXone 2,000 MG in Water for inj. (sterile) 20 ML 20 ML IVP SCH (09:00)
[2018-04-23] MEDS ORDERED: *HR* Vasopressin 20 UNIT/ML VIAL ONE (10:09)
[2018-04-23] MEDS ORDERED: Albumin Human 5% 25.0 GM/500 ML VIAL ONE (10:40)
[2018-04-23] MEDS ORDERED: 0.9 % Sodium Chloride 1,000 ML ONE (11:15)
[2018-04-23] MEDS ORDERED: Isovue-300 50 ML VIAL IVP ONE ×6 (11:31→11:32)
--- NOTE | 2018-04-23 11:57 | IR Procedure Note ---
Date of procedure: 04/23/18 Consent Obtained: Verbal consent, Written consent Timeout: Correct patient and procedure verified, Correct site verified, Time out performed, Skin prep completed Local anesthetic: Lidocaine 1% Indications: portal HTN, varices, ascites Procedure Performed: TIPS Was there an pediatric dental assistant present: No Site/Technique: right sided TIPS Results/Findings: initial gradient of 12-15 mm Hg, reduced to 8 mm Hg post TIPS (10 mm) Estimated blood loss (cc): 10 Complications: None; Tolerated procedure well Post Procedure Treatment Plan: to ICU Specimen: NA
[2018-04-23] MEDS: Lactulose Oral Soln 20 GM/30 ML UDC PO SCH ×3 (12:21→19:55)
[2018-04-23] MEDS: Pregabalin 50 MG CAPSULE PO SCH ×3 (12:21→19:56)
[2018-04-23] MEDS: Furosemide 40 MG TABLET PO SCH (12:21)
[2018-04-23] MEDS: *HR* Digoxin 0.25 MG TABLET PO SCH (12:21)
--- NOTE | 2018-04-23 12:49 | Anesthesia Procedures ---
Date of Encounter: 04/23/18 Time of Encounter: 08:15 Procedures: Anesthesia - Arterial Line Consent obtained: verbal consent Time out performed: Yes Sedation: Versed (mg): 1 (documented on anesthesia record) Sedation: Fentanyl (mcg): 50 (documented on anesthesia record) Local Anesthetic: Lidocaine 1% Amount of Anesthetic used (mls): 0.5 Size (Gauge): 20 Length (inches): 1 3/4 Technique Used: sterile prep, guide wire technique, direct puncture technique Post-Procedure: line taped into place, dry sterile dressing placed Patient tolerated procedure: well, no complications Complications: none Site: Radial L Vitals: see anesthesia record Comments: naac, performed by MURRAY Rossi
--- NOTE | 2018-04-23 13:30 | Nephrology Progress Note ---
Date of Encounter: 04/23/18 Time of Encounter: 13:27 - Assessment and Plan (1) JOSSELINE (acute kidney injury) Current Visit: Yes Status: Acute In February of this year GFR was greater than 60, is now 47. Avoid nephrotoxins and renal dose all medications. Strict I&O. Urine Sodium is 73.8 so Hepatorenal syndrome is not likely. (2) Hyperkalemia Current Visit: Yes Status: Acute Was given 45 of Kayexalate today. K is 5.6 Renal diet, when able to eat. (3) Acute hepatic encephalopathy Current Visit: No Status: Acute Per primary. (4) Ascites Current Visit: No Status: Acute Per primary. Qualifiers: Ascites type: other type Qualified Code(s): R18.8 - Other ascites Subjective Principal diagnosis: AMS Interval history: Pt seen and examined after TIPS procedure in ICU. Pt very drowsy at bedside. Objective - Vital Signs Vital signs: Vital Signs Temp Pulse Resp BP Pulse Ox 04/23/18 13:00 122 18 119/61 96 04/23/18 12:10 95 04/23/18 12:00 98.7 F 116 18 112/64 95 04/23/18 06:37 98.7 F 103 16 99/63 100 04/23/18 03:28 97.9 F 90 16 122/77 99 04/23/18 00:05 97.8 F 97 17 120/84 100 04/22/18 19:57 98 04/22/18 15:43 97.5 F L 105 16 118/80 100 Intake and Output 04/22/18 04/23/18 04/23/18 23:59 07:59 15:59 Output Total 100 / 100 Balance -100 / -100 Output: Urine 100 / 100 Other: Weight 117.9 kg 118.4 kg Patient Weight 04/23/18 23:59 Weight 118.4 kg - General Appearance General appearance: Present: well-developed, well-nourished EENT: Present: ATNC, hearing intact, vision intact Neck: Present: supple Respiratory: Present: clear Cardiology: Present: edema (+3 pitting edema noted to bilat lower extremities.), normal S1, normal S2 Gastrointestinal: Present: normoactive bowel sounds, no tenderness, no guarding, obese, distended Integumentary: Present: no rash, warm and dry Neurologic: Present: alert and oriented x3 Musculoskeletal: Present: no deformities Psychiatric: Present: mood/affect appropriate, cooperative - Lab 04/23/18 06:07 04/23/18 04:24 Most recent lab results Calcium 9.3 mg/dL (8.6-10.3) 04/23/18 04:24 Urine Sodium 73.8 mEq/L 04/22/18 18:44 Consult Discharge Plan - Plan Referrals: NONE,PCP [Primary Care Provider] -
--- NOTE | 2018-04-23 13:59 | Internal Med Progress Note ---
<JosedomingoMadiha alford E - Last Filed: 04/23/18 13:57> Hospitalist Progress Note - Encounter Date of Encounter: 04/23/18 Time of Encounter: 01:00 - Subjective Interval History: Mr. Lomeli was seen at bedside today. He had just gotten back from his TIPS procedure. He was very drowsy and confused. Reportedly thought his brother n eeded him but his is in contact with the brother adn assured him he is fine. He did satte he has some pain in his neck. He also stated he was thirsty. PAtients is at bedside adn stated that he just seemed a bit out of it but knows e just got out from under anethesia and it takes him a bit to shake it. - Exam Vitals: Temp Pulse Resp BP Pulse Ox 98.7 F 122 18 119/61 96 04/23/18 12:00 04/23/18 13:00 04/23/18 13:00 04/23/18 13:00 04/23/18 13:00 Exam: General: mild distress, slightly confused, oriented to person but not place Cardio: RRR, no murmurs, rubs, or gallops Pulm: CTAB, no wheezing or rhonchi Abdominal: normal bowel sounds, no rigidity, no noticeable shifting dullness Skin: caput medusa noticed, some spider angiomas, otherwise warm, dry intact Extremities: vascular changes noted on both lower legs, no pedal edema - Assessment and Plan (1) Hepatic encephalopathy Current Visit: Yes Status: Resolved Assessment and Plan: continue lactulose for a total of 3 bowel movements per day --> titrate up to 45g TID today pt needs to be on high protein diet once able to eat continue to monitor CBC, BMP Underwent TIPS procedure today (2) JOSSELINE (acute kidney injury) Current Visit: Yes Status: Acute Assessment and Plan: Nephrology has seen alfredito patient. Recommend renally dosing medications (3) Hyperkalemia Current Visit: Yes Status: Acute Assessment and Plan: 5.6 today, kexcelate given (4) Ascites Current Visit: No Status: Acute Assessment and Plan: TIPS procedure done by IR today for her ascites (5) Obese Current Visit: No Status: Acute Assessment and Plan: Chronic, renal diet and dietary modifications (6) Anemia Current Visit: No Status: Chronic Assessment and Plan: On Ferrous sulfate continue home med (7) Chronic venous stasis dermatitis of both lower extremities Current Visit: No Status: Chronic Assessment and Plan: chronic changes to lower extremities, no pedal edema noted (8) Gout Current Visit: No Status: Chronic Assessment and Plan: Chronic, currently on allopurinol, continue this (9) Hypertension Current Visit: No Status: Chronic Assessment and Plan: currently holding home medications (10) Hypothyroid Current Visit: No Status: Chronic Assessment and Plan: continue home synthroid (11) Iron deficiency Current Visit: No Status: Chronic Assessment and Plan: on ferrous sulfate, continue home medications (12) Atrial fibrillation Current Visit: No Status: Chronic Assessment and Plan: Chronic with home medications of coumadin, cardizem, digoxin. Coumadin currently held DVT Prophylaxis: scd - Time Spent with Patient Total time spent is greater than 50% in coordination of care (as documented) at patient's floor/unit and/or counseling patient: Internal Medicine: Result - Labs CBC & Chem 7: 04/23/18 06:07 04/23/18 04:24 Labs: Short CBC 04/23/18 Range/Units 06:07 WBC 4.6 (4.3-11.1) K/mcL Hgb 8.1 L (12.9-16.9) g/dL Hct 26.0 L (37.5-50.1) % Plt Count 133 L (140-400) K/mcL Neutrophils # 3.1 (1.6-8.9) K/mcL BMP 04/23/18 04:24 Sodium 135 L Potassium 5.6 H Chloride 112 H Carbon Dioxide 13 L BUN 43 H Creatinine 1.51 H Glucose 115 H Calcium 9.3 Urine 04/22/18 Range/Units 18:44 Urine Color Yellow (Yellow) Urine Clarity Clear (Clear) Urine pH 5.5 (5.0-8.0) pH Units Ur Specific [place] 1.025 (1.010-1.025) Urine Protein Negative (Neg-Trace) mg/dL Urine Glucose (UA) Normal (Normal) mg/dL - ABG Interpretation ABG results: PT/INR, D-dimer PT 13.4 Seconds (9.4-12.1) H 04/20/18 03:13 - Impressions Impressions Retroperitoneum Ultrasound 04/22/18 22:00 IMPRESSION: The bladder is not well visualized. No evidence for hydronephrosis. 2.6 cm cyst within the lower pole of the left kidney. Moderate ascites. D/ / 04/22/2018 22:40:55 Uri Collins MD / javier Interpreting Provider: Uri Collins MD Consult Discharge Plan - Plan Referrals: NONE,PCP [Primary Care Provider] - <Janey Clarke - Last Filed: 04/23/18 18:46> Hospitalist Progress Note - Encounter Date of Encounter: 04/23/18 - Exam Vitals: Temp Pulse Resp BP Pulse Ox 98.8 F 87 20 99/69 100 04/23/18 16:00 04/23/18 18:00 04/23/18 18:00 04/23/18 18:00 04/23/18 18:00 - Assessment and Plan (1) Atrial fibrillation Current Visit: No Status: Chronic (2) Gout Current Visit: No Status: Chronic (3) Chronic venous stasis dermatitis of both lower extremities Current Visit: No Status: Chronic (4) Obese Current Visit: No Status: Acute (5) Altered mental status Current Visit: No Status: Resolved (6) Iron deficiency Current Visit: No Status: Chronic (7) Hypothyroid Current Visit: No Status: Chronic (8) Hepatic encephalopathy Current Visit: Yes Status: Resolved (9) Hyperkalemia Current Visit: Yes Status: Acute (10) History of cirrhosis Current Visit: No Status: Chronic (11) Anemia Current Visit: No Status: Chronic (12) Hypertension Current Visit: No Status: Chronic (13) DVT prophylaxis Current Visit: Yes Status: Acute (14) JOSSELINE (acute kidney injury) Current Visit: Yes Status: Acute - Time Spent with Patient Total time spent is greater than 50% in coordination of care (as documented) at patient's floor/unit and/or counseling patient: Internal Medicine: Result - Labs CBC & Chem 7: 04/23/18 06:07 04/23/18 04:24 Labs: Short CBC 04/23/18 Range/Units 06:07 WBC 4.6 (4.3-11.1) K/mcL Hgb 8.1 L (12.9-16.9) g/dL Hct 26.0 L (37.5-50.1) % Plt Count 133 L (140-400) K/mcL Neutrophils # 3.1 (1.6-8.9) K/mcL BMP 04/23/18 04:24 Sodium 135 L Potassium 5.6 H Chloride 112 H Carbon Dioxide 13 L BUN 43 H Creatinine 1.51 H Glucose 115 H Calcium 9.3 Urine 04/22/18 Range/Units 18:44 Urine Color Yellow (Yellow) Urine Clarity Clear (Clear) Urine pH 5.5 (5.0-8.0) pH Units Ur Specific [place] 1.025 (1.010-1.025) Urine Protein Negative (Neg-Trace) mg/dL Urine Glucose (UA) Normal (Normal) mg/dL - ABG Interpretation ABG results: PT/INR, D-dimer PT 13.4 Seconds (9.4-12.1) H 04/20/18 03:13 - Impressions Impressions Retroperitoneum Ultrasound 04/22/18 22:00 IMPRESSION: The bladder is not well visualized. No evidence for hydronephrosis. 2.6 cm cyst within the lower pole of the left kidney. Moderate ascites. D/ / 04/22/2018 22:40:55 Uri Collins MD / javier Interpreting Provider: Uri Collins MD Guidance Ultrasound 04/23/18 00:00 IMPRESSION: Successful creation of a transjugular intrahepatic portosystemic shunt as described above using a Viatorr 8-10 mm diameter controlled expansion stent with a length of 8 cm covered and 2 cm uncovered. Direct portosystemic gradient prior to the TIPS was measured at 18 mm Hg. Direct portosystemic gradient post TIPS was measured at 8 mm Hg. Although there are several esophageal varices demonstrated prior to placement of the TIPS, post TIPS venogram showed significantly diminished opacification of these varices. As result, no embolization was performed. RECOMMENDATIONS: Baseline TIPS ultrasound with color flow doppler and velocity measurements in 2-4 weeks. D/ / Jhonny Colby / Jhonny Colby Interpreting Provider: Jhonny Colby Percutaneous Transhepatic Portography 04/23/18 00:00 IMPRESSION: Successful creation of a transjugular intrahepatic portosystemic shunt as described above using a Viatorr 8-10 mm diameter controlled expansion stent with a length of 8 cm covered and 2 cm uncovered. Direct portosystemic gradient prior to the TIPS was measured at 18 mm Hg. Direct portosystemic gradient post TIPS was measured at 8 mm Hg. Although there are several esophageal varices demonstrated prior to placement of the TIPS, post TIPS venogram showed significantly diminished opacification of these varices. As result, no embolization was performed. RECOMMENDATIONS: Baseline TIPS ultrasound with color flow doppler and velocity measurements in 2-4 weeks. D/ / Jhonny Colby / Jhonny Colby Interpreting Provider: Jhonny Colby Echocardiogram 04/23/18 16:44 Impressions: LVEF 60-65%. Normal LV chamber size, wall thickness and function. Normal right ventricular structure and function. Severely dilated left atrium. Indeterminate diastolic function. Moderate to severely calcified aortic valve leaflets. Moderate aortic stenosis. Mean gradient 29 mmHg. Peak velocity 3.73 m/s. No pulmonary hypertension. Left Ventricular Wall Motion: Rest Echo Findings All wall segments showed normal motion. Findings: Study Quality * Technically sub-optimal due to poor echocardiographic windows. ECG Findings * Atrial fibrillation. Left Ventricle * LVEF 60-65%. * Normal LV chamber size, wall thickness and function. * Indeterminate diastolic function. Right Ventricle * Normal right ventricular structure and function. Left Atrium * Severely dilated left atrium. Right Atrium * Severely dilated right atrium. Aortic Valve * Moderate to severely calcified aortic valve leaflets. * No aortic regurgitation. * Moderate aortic stenosis. Mean gradient 29 mmHg. Peak velocity 3.73 m/s. Mitral Valve * Moderate mitral annular calcification * Mildly calcified mitral valve leaflets. * No mitral regurgitation. * No mitral stenosis. Tricuspid Valve * Normal tricuspid valve structure and function. * Trace tricuspid regurgitation. * No pulmonary hypertension. Pulmonic Valve * Normal pulmonic valve structure and function. * No pulmonic regurgitation. Aorta * Normally sized aortic root. Pericardium * There is a trivial pericardial effusion present. IVC * The IVC is not dilated. Pulmonary Artery * Normal visualized portions of the main pulmonary artery. - Attending Attestation I saw and assessed this patient and agree with plan per resident Plan Acute decompensated liver cirrhosis with acute metabolic encephalopathy. s/p paracentesis. Improved with lactulose. s/p endoscopy showing varices with no active bleeding. s/p TIPS. Monitor in the ICU overnight Hyperkalemia. Kayexalate as needed JOSSELINE with likely hepatorenal syndrome. On lasix. Albumin as needed. Renal recs appreciated <Madiha Marlow - Last Filed: 04/23/18 13:57> (4) Ascites Qualifiers: Ascites type: other type Qualified Code(s): R18.8 - Other ascites (5) Obese Qualifiers: Obesity type: due to excess calories Body mass index: BMI 39.0-39.9 (6) Anemia Qualifiers: Anemia type: iron deficiency Iron deficiency anemia type: inadequate dietary iron intake Qualified Code(s): D50.8 - Other iron deficiency anemias (8) Gout Qualifiers: Gout site: unspecified site Gout etiology: unspecified cause Chronicity: chronic Presence of tophus: without tophus Qualified Code(s): M1A.9XX0 - Chronic gout, unspecified, without tophus (tophi) (9) Hypertension Qualifiers: Hypertension type: essential hypertension Qualified Code(s): I10 - Essential (primary) hypertension (10) Hypothyroid Qualifiers: Hypothyroidism type: unspecified Qualified Code(s): E03.9 - Hypothyroidism, unspecified (12) Atrial fibrillation Qualifiers: Atrial fibrillation type: chronic Qualified Code(s): I48.2 - Chronic atrial fibrillation <Folaranmi,Janey A - Last Filed: 04/23/18 18:46> (1) Atrial fibrillation Qualifiers: Atrial fibrillation type: chronic Qualified Code(s): I48.2 - Chronic atrial fibrillation (2) Gout Qualifiers: Gout site: unspecified site Gout etiology: unspecified cause Chronicity: chronic Presence of tophus: without tophus Qualified Code(s): M1A.9XX0 - Chron ic gout, unspecified, without tophus (tophi) (4) Obese Qualifiers: Obesity type: due to excess calories Body mass index: BMI 39.0-39.9 (5) Altered mental status Qualifiers: Altered mental status type: delirium Qualified Code(s): R41.0 - Disorientation, unspecified (7) Hypothyroid Qualifiers: Hypothyroidism type: unspecified Qualified Code(s): E03.9 - Hypothyroidism, unspecified (11) Anemia Qualifiers: Anemia type: iron deficiency Iron deficiency anemia type: unspecified iron deficiency Qualified Code(s): D50.9 - Iron deficiency anemia, unspecified (12) Hypertension Qualifiers: Hypertension type: essential hypertension Qualified Code(s): I10 - Essential (primary) hypertension
[2018-04-23] MEDS: Diltiazem CD (24hr) 120 MG CAPSULE PO SCH (17:41)
[2018-04-24 05:00] LABS: Hematocrit 23.9 % (37.5-50.1); Hemoglobin 7.2 g/dL (12.9-16.9); Immature Granulocytes % 0.5 % (0-4); Lymphocytes # 0.3 K/mcL (0.6-4.6); Lymphocytes % 5.2 %; Mean Corpuscular HGB Conc 30.1 g/dL (31.6-35.5); Mean Corpuscular Hemoglobin 25.4 pg (28.0-33.3); Mean Corpuscular Volume 84.5 fL (83.0-100.0); Mean Platelet Volume 11.9 fL (9.4-12.4); Monocytes # 0.6 K/mcL (0.0-1.3); Monocytes % 9.5 %; Neutrophils # 5.3 K/mcL (1.6-8.9); Platelet Count 151 K/mcL (140-400); Red Blood Count 2.83 M/mcL (4.19-5.50); Red Cell Distribution Width 22.7 % (11.5-14.5); Segmented Neutrophils % 84.8 %
[2018-04-24] MEDS: Ondansetron 4 MG/2 ML VIAL IVP PRN (05:09)
[2018-04-24] MEDS: Levothyroxine 25 MCG TABLET PO SCH (05:09)
[2018-04-24 05:20] LABS: BUN/Creatinine Ratio 39 (6-26); Blood Urea Nitrogen 46 mg/dL (8-23); Calcium 8.7 mg/dL (8.6-10.3); Carbon Dioxide 13 mEq/L (23-29); Chloride 108 mEq/L (98-107); Glucose 127 mg/dL (70-105); Osmolality,Calculated 285 (280-300); Potassium 5.4 mEq/L (3.5-5.1); Sodium 131 mEq/L (136-145); eGFR For Non-African Americans > 60 (> 60)
[2018-04-24] MEDS: Tiotropium 18 MCG inhalation IH SCH (08:09)
[2018-04-24 08:42] VITALS: BP 90/59
[2018-04-24] MEDS: *HR* Digoxin 0.25 MG TABLET PO SCH (08:55)
[2018-04-24] MEDS: Pregabalin 50 MG CAPSULE PO SCH (08:55)
[2018-04-24] MEDS: Lactulose Oral Soln 20 GM/30 ML UDC PO SCH (08:55)
[2018-04-24] MEDS: Furosemide 40 MG TABLET PO SCH (08:55)
[2018-04-24] MEDS: cefTRIAXone 2,000 MG in Water for inj. (sterile) 20 ML 20 ML IVP SCH (08:56)
--- NOTE | 2018-04-24 10:28 | Discharge Summary ---
<Wale Verdin - Last Filed: 04/24/18 13:49> - NOTES TO OUTPATIENT PROVIDER Notes to Outpatient Provider: Close follow up for hyperkalemia and hepatic encephalopathy. Patient underwent TIPS procedure. Recommend restarting anticoagulation. Orders not resulted at time of discharge: Pending orders 04/19/18 17:03 Fecal Hemoccult [Occult Blood,Stool] [BF] Stat 04/25/18 04:00 BMP [Basic Metabolic Panel] AM 0400 Complete Blood Count [HEME] AM 0400 Date of Encounter: 04/24/18 Time of Encounter: 09:40 - Discharge Diagnosis (1) Hepatic encephalopathy Priority: Primary Status: Resolved (2) History of cirrhosis Priority: Secondary Status: Chronic (3) Hyperkalemia Priority: Secondary Status: Acute (4) JOSSELINE (acute kidney injury) Priority: Secondary Status: Acute (5) Anemia Priority: Secondary Status: Chronic Qualifiers: Anemia type: iron deficiency Iron deficiency anemia type: unspecified iron deficiency Qualified Code(s): D50.9 - Iron deficiency anemia, unspecified (6) Ascites Priority: Secondary Status: Acute Qualifiers: Ascites type: other type Qualified Code(s): R18.8 - Other ascites (7) Atrial fibrillation Priority: Secondary Status: Chronic Qualifiers: Atrial fibrillation type: chronic Qualified Code(s): I48.2 - Chronic atrial fibrillation (8) Chronic venous stasis dermatitis of both lower extremities Priority: Secondary Status: Chronic (9) Gout Priority: Secondary Status: Chronic Qualifiers: Gout site: unspecified site Gout etiology: unspecified cause Chronicity: chronic Presence of tophus: without tophus Qualified Code(s): M1A.9XX0 - Chronic gout, unspecified, without tophus (tophi) (10) Hypertension Priority: Secondary Status: Chronic Qualifiers: Hypertension type: essential hypertension Qualified Code(s): I10 - Essential (primary) hypertension (11) Hypothyroid Priority: Secondary Status: Chronic Qualifiers: Hypothyroidism type: unspecified Qualified Code(s): E03.9 - Hypothyroidism, unspecified (12) Iron deficiency Priority: Secondary Status: Chronic (13) DVT prophylaxis Priority: Secondary Status: Acute Hospital course: Mr. Lomeli is a 63 year old male with PMH of stage 3 cirrhosis, hx of DVT on Coumadin, liver failure, a fib, COPD, HTN. He was transferred from [facility] [address] with altered mental status, admitted to [facility] for hepatic encephalopathy. In the ER, he was found to have a potassium of 5.7. EKG showed Atrial fibrillation, HR 61, QT 442, no ST segment changes. According to records from [facility] [address], the pt denied any fever, chills, cough, diarrhea, melena, changes in appetite, hematemesis. The patient's was present and gives no additional history. Paracentesis was performed at bedside and 10L of fluid was taken off. Fluid was sent to lab for analysis. GI recommended 50g of albumin per 3.5 L taken off, this was replaced. Rocephin and Rifaximin started for encephalopathy, will discharge on Rifaximin for prevention of recurrence. Patient required multiple doses of kayexalate for hyperkalemia; sprionolactone was discontinued and lactulose was up titrated to 45mg TID. Patient also seen by nephrology during stay for JOSSELINE, but this seems to improve prior to discharge. GI consulted, patient classified with MELD-Na 21, Child-Dunn class B, DF 15.1. Patient's men tation returned to baseline prior to surgery. GI had recommended TIPS for recurrent ascites and encephalopathy, this was completed on 04/23/18 by Interventional Radiologist, patient tolerated procedure well. Also of note, patient's INR subtheraputic on admission, non compliant with medication, held coumadin to be re-evaluated as outpatient to possibly restart or discuss alternatives. Patient states he was leaving today for of family member, AMA if need be. However, IR signed off and patient remains hemodynampically stable and is back to baseline. Plan to discharge today with close follow up and repeat labs. Discharge discussed with: patient - Time Spent with Patient Total time spent providing and/or coordinating discharge services: Less than 30 minutes - Discharge Medications Prescriptions: Lactulose 45 gm PO TID 14 Days #42 udc Rifaximin [Xifaxan] 550 mg PO BID 14 Days #28 tablet Home Medications: Allopurinol [Zyloprim 300 MG] 300 mg PO DAILY tablet 10/24/16 [Rx] Digoxin [Lanoxin] 0.25 mg PO DAILY tablet 10/24/16 [Rx] Pregabalin [Lyrica] 200 mg PO TID 11/09/17 [History] Ferrous Sulfate [Iron] 325 mg PO DAILY 11/10/17 [History] Diltiazem CD (24hr) [Cardizem CD] 120 mg PO QPM #30 cap.er.24h 11/13/17 [Rx] Propranolol [Inderal] 20 mg PO BID #60 tablet 11/13/17 [Rx] Furosemide [Lasix] 40 mg PO DAILY 02/06/18 [History] Tiotropium [place] [Spiriva Respimat] 2 puff IH DAILY 02/06/18 [History] Albuterol Sulfate [Ventolin Hfa] 2 puff IH Q4H PRN 04/20/18 [History] Lactulose 45 gm PO TID 14 Days #42 udc 04/24/18 [Rx] Levothyroxine [Synthroid] 50 mcg PO 0630 tablet 04/24/18 [Rx] Rifaximin [Xifaxan] 550 mg PO BID 14 Days #28 tablet 04/24/18 [Rx] Allergies/Adverse Reactions: Allergy/AdvReac Type Severity Reaction Status Date / Time tramadol AdvReac Itching Verified 01/15/18 16:18 Date of admission: 04/19/18 12:07 Primary care physician: PCP NONE Consults: 04/19/18 14:49 Consult to Gastroenterology [CONS] Routine Consulting Provider: Gastroenterology [facility] Reason for Consult: hepatic encephalopathy, abdominal ascities and albumin replacement Call Completed: Yes 04/20/18 15:09 Consult to Occupational Therapy [CONS] Routine Comment: Evaluate, develop and implement POC Reason for Consult: ptot eval Does patient have active BEDREST order?: No Is patient medically & hemodynamically stable?: Yes Patient assessed for mobility or mobilized this visit?: No Consult to Physical Therapy [CONS] Routine Comment: Evaluate, develop and implement POC Reason for Consult: ptot eval Does patient have active BEDREST order?: No Is patient medically & hemodynamically stable?: Yes Patient assessed for mobility or mobilized this visit?: No 04/22/18 10:33 Consult to Interventional Radiology [CONS] Routine Consulting Provider: Radiology Interventional Cols Reason for Consult: TIPS procedure Time Notified: 10:30 Call Completed: Yes 04/22/18 12:54 Consult to Nephrology [CONS] Routine Consulting Provider: Kidney Sera/CARLOS A/CARLOTA/CAN Reason for Consult: josseline with hepatorenal syndrome and persistent hyperkalemia Call Completed: No Discharging clinician: Janey Clarke Anticipated date of discharge: 04/24/18 - Constitutional Vitals: Temp Pulse Resp BP Pulse Ox 97.6 F 79 16 90/59 100 04/24/18 08:00 04/24/18 06:00 04/24/18 08:00 04/24/18 08:00 04/24/18 08:00 Exam: General: no acute distress, agitated, oriented to person and place Cardio: irregular, no murmurs, rubs, or gallops Pulm: CTAB, no wheezing or rhonchi Abdominal: normal bowel sounds, no rigidity, nontender, dressing to left abd C/D/I Skin: caput medusa noticed, some spider angiomas, otherwise warm, dry intact Extremities: vascular changes noted on both lower legs, no pedal edema - Patient Status Disposition: Home, Self-Care Condition: Fair Functional capacity at discharge: independent ambulation Overall status at discharge: patient is back to baseline - Ambulatory Orders Ambulatory Orders: Basic Metabolic Panel [CHEM] Time Frame: 2 Days, Facility: [facility], Location: Lab - Discharge Instructions Instructions: Cirrhosis (DC), Potassium Content of Foods List (GEN), Hyperkalemia (DC), Transjugular Intrahepatic Portosystemic Shunt (DC) Follow Up With: Tay Landa MD [Partnered Physician] - (f/u next week if possible.) [facility] [Outside] (FM clinic) Additional Instructions: Please follow up with Primary Care Provider next week, if you do not have a PCP we can set you up an appointment. Hold your coumadin until you are able to see your provider to determine how best to address long-term anticoagulation. Follow up with Dr Landa next week for cirrhosis. We have made adjusts to your labs and will want you to complete lab work on Thursday (2 days from now). For your elevated potassium we have stopped your spironolactone medication and ask that you limit potassium rich foods. We have provided basic list of potassium rich foods to avoid. Please return or seek medical care if you have new or worsening symptoms such as abdominal swelling, shortness of breath, chest pain, confusion. - Diet and Activity Activity: increase activity as tolerated Diet: advance to your usual diet <Janey Clarke - Last Filed: 04/24/18 14:31> Orders not resulted at time of discharge: Pending orders 04/19/18 17:03 Fecal Hemoccult [Occult Blood,Stool] [BF] Stat Date of Encounter: 04/24/18 - Discharge Diagnosis (1) Atrial fibrillation Status: Chronic Qualifiers: Atrial fibrillation type: chronic Qualified Code(s): I48.2 - Chronic atrial fibrillation (2) Gout Status: Chronic Qualifiers: Gout site: unspecified site Gout etiology: unspecified cause Chronicity: chronic Presence of tophus: without tophus Qualified Code(s): M1A.9XX0 - Chronic gout, unspecified, without tophus (tophi) (3) Chronic venous stasis dermatitis of both lower extremities Status: Chronic (4) Obese Status: Acute Qualifiers: Obesity type: due to excess calories Body mass index: BMI 39.0-39.9 (5) Altered mental status Status: Resolved Qualifiers: Altered mental status type: delirium Qualified Code(s): R41.0 - Disorientation, unspecified (6) Iron deficiency Status: Chronic (7) Hypothyroid Status: Chronic Qualifiers: Hypothyroidism type: unspecified Qualified Code(s): E03.9 - Hypothyroidism, unspecified (8) Hepatic encephalopathy Status: Resolved (9) Hyperkalemia Status: Acute (10) History of cirrhosis Status: Chronic (11) Anemia Status: Chronic Qualifiers: Anemia type: iron deficiency Iron deficiency anemia type: unspecified iron deficiency Qualified Code(s): D50.9 - Iron deficiency anemia, unspecified (12) Hypertension Status: Chronic Qualifiers: Hypertension type: essential hypertension Qualified Code(s): I10 - Essential (primary) hypertension (13) DVT prophylaxis Status: Acute (14) JOSSELINE (acute kidney injury) Status: Acute Hospital course: Mr. Lomeli is a 63 year old male - Time Spent with Patient Total time spent providing and/or coordinating discharge services: Date of admission: 04/19/18 12:07 Primary care physician: PCP NONE Consults: 04/19/18 14:49 Consult to Gastroenterology [CONS] Routine Consulting Provider: Gastroenterology [place] Reason for Consult: hepatic encephalopathy, abdominal ascities and albumin replacement Call Completed: Yes 04/20/18 15:09 Consult to Occupational Therapy [CONS] Routine Comment: Evaluate, develop and implement POC Reason for Consult: ptot eval Does patient have active BEDREST order?: No Is patient medically & hemodynamically stable?: Yes Patient assessed for mobility or mobilized this visit?: No Consult to Physical Therapy [CONS] Routine Comment: Evaluate, develop and implement POC Reason for Consult: ptot eval Does patient have active BEDREST order?: No Is patient medically & hemodynamically stable?: Yes Patient assessed for mobility or mobilized this visit?: No 04/22/18 10:33 Consult to Interventional Radiology [CONS] Routine Consulting Provider: Radiology Interventional Cols Reason for Consult: TIPS procedure Time Notified: 10:30 Call Completed: Yes 04/22/18 12:54 Consult to Nephrology [CONS] Routine Consulting Provider: Kidney Sera/CARLOS A/CARLOTA/CAN Reason for Consult: josseline with hepatorenal syndrome and persistent hyperkalemia Call Completed: No - Constitutional Vitals: Temp Pulse Resp BP Pulse Ox 97.6 F 79 16 90/59 100 04/24/18 11:23 04/24/18 06:00 04/24/18 08:00 04/24/18 08:00 04/24/18 08:00 - Attending Attestation I saw and assessed this patient and agree with discharge summary per resident Exam General: no acute distress, agitated, oriented to person and place Cardio: irregular, no murmurs, rubs, or gallops Pulm: CTAB, no wheezing or rhonchi Abdominal: normal bowel sounds, no rigidity, nontender, dressing to left abd C/D/I Skin: caput medusa noticed, some spider angiomas, otherwise warm, dry intact Extremities: vascular changes noted on both lower legs, no pedal edema Plan Acute decompensated liver cirrhosis with acute metabolic encephalopathy. s/p paracentesis. Improved with lactulose. s/p endoscopy showing varices with no active bleeding. s/p TIPS. Hemodynamically stable. Creatinine improved. Outpatient followup with GI Hyperkalemia. Kayexalate as needed. OUt patient followup with GI. We discontinued his spironolactone on discharge due to his hyperkalemia JOSSELINE with likely hepatorenal syndrome. On lasix. Albumin as needed. Renal recs appreciated Afib. Has history of noncompliance with coumadin. OUtpatient followup with PCP
--- NOTE | 2018-04-24 10:54 | Nephrology Progress Note ---
Date of Encounter: 04/24/18 Time of Encounter: 11:00 - Assessment and Plan (1) JOSSELINE (acute kidney injury) Current Visit: Yes Status: Acute SCr normalized at 1.17, GFR >60 UOP noted at 1175+cc in the past 24hrs Will sign off, please reconsult prn (2) Hyperkalemia Current Visit: Yes Status: Acute Improving at 5.4, after series of kayexalate and BMs Low potassium diet advised (3) Ascites Current Visit: No Status: Acute Qualifiers: Ascites type: other type Qualified Code(s): R18.8 - Other ascites (4) Acute hepatic encephalopathy Current Visit: No Status: Acute Subjective Principal diagnosis: AMS Interval history: Interim noted, s/p TIPS procedure yesterday without major complications. Pt seen and examined Objective - Vital Signs Vital signs: Vital Signs Temp Pulse Resp BP Pulse Ox 04/24/18 08:00 97.6 F 16 90/59 100 04/24/18 07:35 97.6 F 04/24/18 06:00 79 12 87/56 100 04/24/18 05:00 74 20 115/68 100 04/24/18 04:09 97.4 F L 04/24/18 04:00 77 21 96/66 100 04/24/18 03:00 71 32 91/51 04/24/18 02:00 109 17 123/101 100 04/24/18 01:00 80 28 80/55 100 04/24/18 00:21 73 14 92/59 100 04/23/18 23:00 70 18 94/48 100 04/23/18 22:11 82 16 90/57 100 04/23/18 21:00 92 14 108/65 100 04/23/18 20:23 97.7 F 04/23/18 20:00 71 23 90/75 100 04/23/18 19:00 81 22 100/53 100 04/23/18 18:00 87 20 99/69 100 04/23/18 17:00 93 22 108/71 100 04/23/18 16:00 98.8 F 85 20 103/68 95 04/23/18 15:00 89 20 97/72 95 04/23/18 14:00 84 18 121/52 96 04/23/18 13:00 122 18 119/61 96 04/23/18 12:10 95 04/23/18 12:00 98.7 F 116 18 112/64 95 Intake and Output 04/23/18 04/24/18 04/24/18 23:59 07:59 15:59 Intake Total 780 / 780 Output Total 950 / 950 300 / 300 Balance -950 / -950 -300 / -300 780 / 780 Intake: Oral 780 / 780 Output: Urine 550 / 550 300 / 300 Urine/Stool Mix 400 / 400 Other: Meal Breakfast Percent of Meal Consumed 100% Stool Size Large Large Large Stool Consistency soft liquid liquid soft Stool Characteristics Normal for Patient Normal for Patient Stool Color Brown Brown Brown Green Green # Bowel Movements 1 1 Weight 121.36 kg Patient Weight 04/24/18 23:59 Weight 121.36 kg - Lab 04/24/18 04:32 04/24/18 04:32 Most recent lab results Calcium 8.7 mg/dL (8.6-10.3) 04/24/18 04:32 Urine Sodium 73.8 mEq/L 04/22/18 18:44 Consult Discharge Plan - Plan Referrals: NONE,PCP [Primary Care Provider] -
== END 2018-04-24 13:20 | disposition home or self-care (01) | DRG 405 ==
LOC: SUATTDRO 12:07 → ICNU 12:07 → 3BNU 04-20 16:00 → ICNU 04-23 11:39
PROVIDERS: ADMIT Internal Medicine; ATTEND Student in an Organized Health Care Education/Training Program